=== PATIENT | male | born 1970 | race Caucasian/White ===

== ENCOUNTER 2025-05-27 19:31 | Inpatient (IN) | payer OTHER, SELFPAY ==
[2025-05-27] VITALS (11 sets, daily range): BP systolic 159–166; BP diastolic 88–94; PULSE 88–119; RESP 15–28; TEMP 36.8–37.5; O2SAT 94–99; BMI 22.4
--- NOTE | 2025-05-27 20:06 | ED.ABDPAIN ---
HPI - Abdominal Pain General Time Seen by Provider: 20:06 Date Seen: 05/27/25 Chief Complaint: Abdominal Pain Stated Complaint: pancreatitis Time Seen by Provider: 05/27/25 20:06 Source: patient Mode of arrival: ambulatory History of Present Illness HPI narrative: Brett is a 54-year-old male with a past medical history pancreatitis, alcohol use who presents the emergency department from home with his for evaluation of abdominal pain. Patient complains sudden onset of severe abdominal pain, nausea, vomiting Sunday afternoon. Patient states that he typically drinks 4-6 beers daily, states that he has been trying to cut back however on Sunday he did drink approximately 4 cans of beers. Patient reports that around 1600 he developed sudden onset of multiple episodes of nausea, vomiting, followed by severe abdominal pain. Patient describes the pain as a sharp stabbing pain in his epigastric region with radiation to his right abdomen and to his back. Patient reports history of similar pain with prior episodes of pancreatitis. Patient states that he has been to [facility] and hospitalized for this before. Patient reports that, he last had an episode of vomiting around 1:00 a.m.. Patient states today he was able to drink water, liquid IV, and was feeling a little better until this afternoon he had worsening pain. Patient denies any fever, chills, chest pain, cough, shortness of breath, diarrhea, constipation, dysuria, hematuria. Patient reports history of hernia surgeries in the past, exploratory laparotomy, cholecystectomy. No medications prior to arrival. + tobacco use. Patient reports last drink was on Sunday. No history of alcohol withdrawals. Related Data Home Medications ?Medication ?Instructions ?Recorded ?Confirmed aspirin 325 mg capsule 325 mg PO DAILY 05/27/25 05/27/25 atorvastatin 20 mg tablet 20 mg PO DAILY 05/27/25 05/27/25 losartan 25 mg tablet 25 mg PO DAILY 05/27/25 05/27/25 metoprolol tartrate 50 mg tablet 50 mg PO DAILY 05/27/25 05/27/25 omeprazole 40 mg capsule,delayed 40 mg PO DAILY 05/27/25 05/27/25 release Allergies Allergy/AdvReac Type Severity Reaction Status Date / Time meperidine (From Demerol) Allergy Severe Seizure Verified 05/27/25 20:52 Review of Systems Narrative Past medical history, past surgical history, medications, allergies, family history, and social history were reviewed with the patient. No additional pertinent items. A medically appropriate review of systems was performed with pertinent positives and negatives noted in HPI, all other systems negative. [facility] Social History Smoking Status: Unknown if ever smoked How often do you have a drink containing alcohol: 4 or more times a week How many standard drinks containing alcohol do you have on a typical day: 5 or 6 How often do you have six or more drinks on one occasion: Daily or almost daily AUDIT-C Alcohol total score: 10 Non-prescribed substance use: denies use Exam Narrative: Exam Narrative: General: Afebrile, no acute distress HEENT: Normocephalic, atraumatic, conjunctiva normal. MMM Neck: non-tender, supple Cardio: regular rate. regular rhythm Resp: Normal work of breathing, no respiratory distress, lungs clear bilaterally, no wheezing, rhonchi, rales Chest/Back: no visual signs of trauma, no midline tenderness, no CVA tenderness Abdomen: soft, non distension, no tenderness, no peritoneal signs Neuro: alert and fully oriented. CN II-XII grossly intact. Grossly normal strength and sensation in all extremities. MSK: no deformities. Normal range of motion Integumentary/Skin: no rash visualized, normal color Psych: normal affect, normal behavior Const: Vital Signs, click to edit/add: Vital Signs - 24 hr 05/27/25 19:47 05/27/25 20:10 05/27/25 20:15 Temperature 99.5 F Pulse Rate 108 H Pulse Rate [Pulse Oximeter] 119 H Respiratory Rate 28 H Blood Pressure 162/88 H Blood Pressure [Ri ght Upper Arm] 159/90 H Pulse Oximetry 99 97 98 Oxygen Delivery Me thod Room Air 05/27/25 20:30 05/27/25 20:55 05/27/25 20:59 Temperature Pulse Rate 108 H 99 105 H Pulse Rate [Pulse Oximeter] Respiratory Rate 24 17 Blood Pressure 166/92 H Blood Pressure [Ri ght Upper Arm] Pulse Oximetry 98 94 97 Oxygen Delivery Me thod 05/27/25 21:00 Temperature Pulse Rate 100 Pulse Rate [Pulse Oximeter] Respiratory Rate 18 Blood Pressure Blood Pressure [Ri ght Upper Arm] Pulse Oximetry 96 Oxygen Delivery Me thod Course Vital Signs Vital signs: Initial Vital Signs Temperature 99.5 F 05/27/25 19:47 Temperature Source Temporal Artery Scan 05/27/25 19:47 Pulse Rate 119 H 05/27/25 19:47 Respiratory Rate 28 H 05/27/25 19:47 Blood Pressure 159/90 H 05/27/25 19:47 Blood Pressure Mean 113 H 05/27/25 19:47 Blood Pressure Position Sitting 05/27/25 19:47 Pulse Oximetry 99 05/27/25 19:47 Oxygen Delivery Method Room Air 05/27/25 19:47 Vital Signs Temperature 99.5 F 05/27/25 19:47 Pulse Rate 119 H 05/27/25 19:47 Respiratory Rate 28 H 05/27/25 19:47 Blood Pressure 159/90 H 05/27/25 19:47 Pulse Oximetry 99 05/27/25 19:47 Oxygen Delivery Method Room Air 05/27/25 19:47 Temperature 99.5 F 05/27/25 19:47 Pulse Rate 100 05/27/25 21:00 Respiratory Rate 18 05/27/25 21:00 Blood Pressure 166/92 H 05/27/25 20:59 Pulse Oximetry 96 05/27/25 21:00 Oxygen Delivery Method Room Air 05/27/25 19:47 Medications Administered Medications: Generic Name Dose Route Start Last Admin Trade Name Freq PRN Reason Stop Dose Admin Sodium Chloride 1,000 mls @ 1,000 mls/hr 05/27/25 20:30 05/27/25 20:26 0.9 % Sodium Chloride 1000 Ml IV 05/27/25 21:29 1,000 mls/hr .Q1H JUAN JOSÉ Administration Discontinued Medications Generic Name Dose Route Start Last Admin Trade Name Freq PRN Reason Stop Dose Admin Hydromorphone HCl 1 mg 05/27/25 20:19 05/27/25 20:26 Hydromorphone 0.5 Mg/0.5 Ml Inj IVP 05/27/25 20:20 1 mg ONCE ONE Administration Ondansetron HCl 4 mg 05/27/25 20:19 05/27/25 20:25 Ondansetron 2 Mg/Ml Inj IVP 05/27/25 20:20 4 mg ONCE ONE Administration MDM - Abdominal Pain MDM Narrative Medical decision making narrative: Brett is a 54-year-old male with a past medical history pancreatitis, alcohol use who presents the emergency department from home with his for evaluation of abdominal pain. Upon arrival patient is ill but nontoxic appearing, afebrile, in distress secondary to pain. Initial vital signs with hypertensive 159/90, tachycardic with a heart rate of 119, tachypnea with respirations 28, oxygen 99% room air. Abdomen is soft, nondistended, tenderness to palpation in upper abdomen. Differential diagnosis includes but is not limited to pancreatitis versus retained stone versus gastritis versus peptic ulcer disease versus colitis versus appendicitis among others. Upon arrival patient was treated with 1 L IV fluid bolus, IV Zofran, IV Dilaudid for pain. Comprehensive labs remarkable for leukocytosis with white blood cell count 16.6, hemoglobin 15.4, sodium 133, potassium 3.7, no other metabolic electrolyte abnormality, no transaminitis, lipase elevated at 1833. I personally reviewed interpreted CT scan abdomen pelvis which demonstrates peripancreatic head inflammation suggested of acute uncomplicated pancreatitis. There are additional pancreatic head cystic lesions likely pseudocyst in this patient with history of pancreatitis. Mild gastric antral proximal duodenal wall thickening likely reactive. I discussed results with patient. Patient does report improvement/decrease in pain after IV pain medication. Given severe pain, nausea, vomiting, leukocytosis, elevated lipase, history of pancreatitis in the past, plan on admission for acute pancreatitis for IV hydration, bowel rest, pain control. Patient understands and agrees the plan. I discussed patient management with hospitalist who agrees with admission. Medical Records Attestation: I reviewed the patient's medical records. Lab Data Attestation: I reviewed the patient's lab results. Labs: Lab Results 05/27/25 05/27/25 05/27/25 Range/Units 20:00 20:00 20:00 WBC 16.60 H (4.50-11.00) K/uL RBC 4.69 (4.30-5.90) m/uL Hgb 15.4 (13.5-17.5) gm/dL Hct 44.8 (37.0-53.0) % MCV 96 (80-100) fL MCH 33 (26-34) pg MCHC 34 (32-36) gm/dL RDW Coeff of Tereso 11.8 (11.5-15.5) % Plt Count 360 (140-440) K/uL Neut % (Auto) 76.3 H (42.0-72.0) % Lymph % (Auto) 16.2 L (20-44) % [place] % (Auto) 6.7 (0.0-11.0) % Eos % (Auto) 0.4 (0.0-7.0) % Baso % (Auto) 0.1 (0.0-3.0) % Neut # (Auto) 12.70 H (1.7-7.0) K/uL Lymph # (Auto) 2.70 (0.90-2.90) K/uL [place] # (Auto) 1.10 H (0.00-0.90) K/UL Eos # (Auto) 0.10 (0.00-0.50) K/uL Baso # (Auto) 0.00 (0.00-0.30) K/uL Abs Immat Gran (auto) 0.00 (0.00-0.30) K/uL Imm/Tot Granulo (auto) 0.3 % Sodium Cancelled 133 L Potassium Cancelled 3.7 Chloride Cancelled Carbon Dioxide Anion Gap BUN Creatinine Estimated Creat Clear Estimated GFR Glucose Lactate (0.5-1.9) mmol/L Calcium Total Bilirubin (0.1-1.5) mg/dL Direct Bilirubin (0.0-0.5) mg/dL AST (12-35) U/L ALT (4-50) U/L Alkaline Phosphatase (40-150) U/L Total Protein (6.0-8.3) g/dL Albumin (3.3-5.0) g/dL Lipase (23-300) U/L Ethyl Alcohol (0.01-0.03) % 05/27/25 05/27/25 05/27/25 Range/Units 20:00 20:00 20:00 WBC (4.50-11.00) K/uL RBC (4.30-5.90) m/uL Hgb (13.5-17.5) gm/dL Hct (37.0-53.0) % MCV (80-100) fL MCH (26-34) pg MCHC (32-36) gm/dL RDW Coeff of Tereso (11.5-15.5) % Plt Count (140-440) K/uL Neut % (Auto) (42.0-72.0) % Lymph % (Auto) (20-44) % [place] % (Auto) (0.0-11.0) % Eos % (Auto) (0.0-7.0) % Baso % (Auto) (0.0-3.0) % Neut # (Auto) (1.7-7.0) K/uL Lymph # (Auto) (0.90-2.90) K/uL [place] # (Auto) (0.00-0.90) K/UL Eos # (Auto) (0.00-0.50) K/uL Baso # (Auto) (0.00-0.30) K/uL Abs Immat Gran (auto) (0.00-0.30) K/uL Imm/Tot Granulo (auto) % Sodium Potassium Chloride 102 Carbon Dioxide Cancelled 24 Anion Gap Cancelled 7 BUN Cancelled Creatinine Estimated Creat Clear Estimated GFR Glucose Lactate (0.5-1.9) mmol/L Calcium Total Bilirubin (0.1-1.5) mg/dL Direct Bilirubin (0.0-0.5) mg/dL AST (12-35) U/L ALT (4-50) U/L Alkaline Phosphatase (40-150) U/L Total Protein (6.0-8.3) g/dL Albumin (3.3-5.0) g/dL Lipase (23-300) U/L Ethyl Alcohol (0.01-0.03) % 05/27/25 05/27/25 05/27/25 Range/Units 20:00 20:00 20:00 WBC (4.50-11.00) K/uL RBC (4.30-5.90) m/uL Hgb (13.5-17.5) gm/dL Hct (37.0-53.0) % MCV (80-100) fL MCH (26-34) pg MCHC (32-36) gm/dL RDW Coeff of Tereso (11.5-15.5) % Plt Count (140-440) K/uL Neut % (Auto) (42.0-72.0) % Lymph % (Auto) (20-44) % [place] % (Auto) (0.0-11.0) % Eos % (Auto) (0.0-7.0) % Baso % (Auto) (0.0-3.0) % Neut # (Auto) (1.7-7.0) K/uL Lymph # (Auto) (0.90-2.90) K/uL [place] # (Auto) (0.00-0.90) K/UL Eos # (Auto) (0.00-0.50) K/uL Baso # (Auto) (0.00-0.30) K/uL Abs Immat Gran (auto) (0.00-0.30) K/uL Imm/Tot Granulo (auto) % Sodium Potassium Chloride Carbon Dioxide Anion Gap BUN 9 Creatinine Cancelled 0.7 Estimated Creat Clear Cancelled 122.30 Estimated GFR Cancelled Glucose Lactate (0.5-1.9) mmol/L Calcium Total Bilirubin (0.1-1.5) mg/dL Direct Bilirubin (0.0-0.5) mg/dL AST (12-35) U/L ALT (4-50) U/L Alkaline Phosphatase (40-150) U/L Total Protein (6.0-8.3) g/dL Albumin (3.3-5.0) g/dL Lipase (23-300) U/L Ethyl Alcohol (0.01-0.03) % 05/27/25 05/27/25 05/27/25 Range/Units 20:00 20:00 20:00 WBC (4.50-11.00) K/uL RBC (4.30-5.90) m/uL Hgb (13.5-17.5) gm/dL Hct (37.0-53.0) % MCV (80-100) fL MCH (26-34) pg MCHC (32-36) gm/dL RDW Coeff of Tereso (11.5-15.5) % Plt Count (140-440) K/uL Neut % (Auto) (42.0-72.0) % Lymph % (Auto) (20-44) % [place] % (Auto) (0.0-11.0) % Eos % (Auto) (0.0-7.0) % Baso % (Auto) (0.0-3.0) % Neut # (Auto) (1.7-7.0) K/uL Lymph # (Auto) (0.90-2.90) K/uL [place] # (Auto) (0.00-0.90) K/UL Eos # (Auto) (0.00-0.50) K/uL Baso # (Auto) (0.00-0.30) K/uL Abs Immat Gran (auto) (0.00-0.30) K/uL Imm/Tot Granulo (auto) % Sodium Potassium Chloride Carbon Dioxide Anion Gap BUN Creatinine Estimated Creat Clear Estimated GFR 110 Glucose Cancelled 187 H Lactate 1.5 (0.5-1.9) mmol/L Calcium Cancelled 9.3 Total Bilirubin 0.7 (0.1-1.5) mg/dL Direct Bilirubin 0.3 (0.0-0.5) mg/dL AST 33 (12-35) U/L ALT 29 (4-50) U/L Alkaline Phosphatase 85 (40-150) U/L Total Protein 6.9 (6.0-8.3) g/dL Albumin 3.9 (3.3-5.0) g/dL Lipase 1833 H (23-300) U/L Ethyl Alcohol < 0.01 (0.01-0.03) % Imaging Data CT scan - abdomen: Radiologist's impression: CT abdomen and pelvis acquired with 77 cc Isovue 370 IV contrast. COMPARISON: None. FINDINGS: Lower chest: Unremarkable. Liver: Unremarkable. Normal in size and attenuation. No suspicious masses. Gallbladder and bile ducts: Prior cholecystectomy. Pancreas: Multifocal pancreatic head cystic lesions, measuring 2.6 centimeters and 1.6 centimeters. Subtle peripancreatic head inflammation. Spleen: Unremarkable. Normal in size. No masses. Adrenal glands: Unremarkable. No nodules. Kidneys: Tiny nonobstructing right renal stone.. No suspicious masses, stones, or hydronephrosis. GI tract: Mild gastric antral/proximal duodenal wall thickening.. Normal in caliber. No sign of mass or inflammation. Normal appendix. Vasculature: Aortoiliac arterial calcifications. Abdominal aorta is normal in caliber. Mesenteric arteries are patent. Lymph nodes: No lymphadenopathy. Peritoneum/Abdominal Wall: Unremarkable. No sign of mass or infiltration. No free air or significant free fluid. Pelvis: Unremarkable. Bones: Age-indeterminate moderate L1 compression fracture. IMPRESSION: Subtle peripancreatic head inflammation, possibly mild acute uncomplicated pancreatitis in the appropriate clinical setting. Recommend correlation with lipase. Additional 2.6 centimeter and 1.6 centimeter pancreatic head cystic lesions, likely pseudocysts in this patient with history of pancreatitis. Mild gastric antral/proximal duodenal wall thickening, likely reactive. Primary gastritis/duodenitis could have a similar appearance and should be clinically excluded. No drainable fluid collections or free intraperitoneal air. Age-indeterminate moderate L1 compression fracture. Recommend correlation with point tenderness. Please note that all CT scans at this facility use dose modulation, iterative reconstruction, and/or weight-based dosing when appropriate to reduce radiation dose to as low as reasonably achievable. Dictated by Shahram Bermeo MD @ 05/27/2025 9:10:43 PM Discharge Plan Discharge Clinical Impression: Pancreatitis, Abdominal pain, epigastric, Nausea & vomiting Patient Disposition: Admitted As Inpatient Condition: Improved
[2025-05-27 20:07] LABS: Lactate* 1.5 mmol/L (0.5-1.9)
[2025-05-27 20:11] LABS: Hematocrit* 44.8 % (37.0-53.0); Hemoglobin* 15.4 gm/dL (13.5-17.5); Immature Granulocytes Pct Auto 0.3 %; Mean Corpuscular HGB Conc 34 gm/dL (32-36); Mean Corpuscular Hemoglobin 33 pg (26-34); Mean Corpuscular Volume 96 fL (80-100); RDW Coefficient of Variation % 11.8 % (11.5-15.5); Red Blood Count* 4.69 m/uL (4.30-5.90); White Blood Count* 16.60 K/uL (4.50-11.00)
[2025-05-27 20:23] LABS: Immature Granulocytes Abs Auto 0.00 K/uL (0.00-0.30); Lymphocytes Absolute Auto 2.70 K/uL (0.90-2.90); Slide Review Reflex No
[2025-05-27] MEDS: ONDANSETRON 2 MG/ML inj 4 MG IVP (20:25)
[2025-05-27 20:26] LABS: Chloride* 102 mmol/L (96-114); Potassium* 3.7 mmol/L (3.6-5.1); Sodium* 133 mmol/L (135-149)
[2025-05-27 20:27] LABS: Albumin* 3.9 g/dL (3.3-5.0)
--- NOTE | 2025-05-27 20:27 | CRLHL7_ITS ---
For Patients: As a result of the Century Cures Act, medical imaging exams and procedure reports are released immediately into your electronic medical record. You may view this report before your referring provider. If you have questions, please contact your health care provider. INDICATION: Upper abdominal pain. TECHNIQUE: CT abdomen and pelvis acquired with 77 cc Isovue 370 IV contrast. COMPARISON: None. FINDINGS: Lower chest: Unremarkable. Liver: Unremarkable. Normal in size and attenuation. No suspicious masses. Gallbladder and bile ducts: Prior cholecystectomy. Pancreas: Multifocal pancreatic head cystic lesions, measuring 2.6 centimeters and 1.6 centimeters. Subtle peripancreatic head inflammation. Spleen: Unremarkable. Normal in size. No masses. Adrenal glands: Unremarkable. No nodules. Kidneys: Tiny nonobstructing right renal stone.. No suspicious masses, stones, or hydronephrosis. GI tract: Mild gastric antral/proximal duodenal wall thickening.. Normal in caliber. No sign of mass or inflammation. Normal appendix. Vasculature: Aortoiliac arterial calcifications. Abdominal aorta is normal in caliber. Mesenteric arteries are patent. Lymph nodes: No lymphadenopathy. Peritoneum/Abdominal Wall: Unremarkable. No sign of mass or infiltration. No free air or significant free fluid. Pelvis: Unremarkable. Bones: Age-indeterminate moderate L1 compression fracture. IMPRESSION: Subtle peripancreatic head inflammation, possibly mild acute uncomplicated pancreatitis in the appropriate clinical setting. Recommend correlation with lipase. Additional 2.6 centimeter and 1.6 centimeter pancreatic head cystic lesions, likely pseudocysts in this patient with history of pancreatitis. Mild gastric antral/proximal duodenal wall thickening, likely reactive. Primary gastritis/duodenitis could have a similar appearance and should be clinically excluded. No drainable fluid collections or free intraperitoneal air. Age-indeterminate moderate L1 compression fracture. Recommend correlation with point tenderness. Please note that all CT scans at this facility use dose modulation, iterative reconstruction, and/or weight-based dosing when appropriate to reduce radiation dose to as low as reasonably achievable. Dictated by Shahram Bermeo MD @ 05/27/2025 9:10:43 PM (Electronically Signed)
[2025-05-27 20:29] LABS: Alanine Aminotransferase* 29 U/L (4-50); Anion Gap 7 mEq/L (7-15); Aspartate Amino Transferase* 33 U/L (12-35); Blood Urea Nitrogen* 9 mg/dL (7-30); Calcium* 9.3 mg/dL (8.4-10.6); Carbon Dioxide* 24 mmol/L (20-32); Creatinine* 0.7 mg/dL (0.5-1.5); Est. Creatinine Clearance* 122.30; Estimated Glomerular Filt Rate 110 ml/min; Glucose* 187 mg/dL (60-115); Total Protein* 6.9 g/dL (6.0-8.3)
[2025-05-27 20:30] LABS: Alkaline Phosphatase* 85 U/L (40-150); Bilirubin Direct* 0.3 mg/dL (0.0-0.5); Bilirubin Total* 0.7 mg/dL (0.1-1.5)
[2025-05-27 20:31] LABS: Ethanol* < 0.01 % (0.01-0.03)
--- NOTE | 2025-05-27 21:25 | PM.IMHP1 ---
Assessment and Plan Assessment and plan (1) Alcoholic pancreatitis: Problem comment: -acute on chronic recurrent, 3rd episode -CT shows Subtle peripancreatic head inflammation, possibly mild acute uncomplicated pancreatitis -lipase 1833 -IVF, NPO, pain and nausea management -consider General surgery consult if new or worsening symptoms or no resolve Status: Acute (2) Gastritis: Problem comment: -history of gastric ulcer, Turner's esophagus without dysplasia -CT shows Mild gastric antral/proximal duodenal wall thickening, likely reactive. Primary gastritis/duodenitis could have a similar appearance -H pylori ordered -continue PPI Status: Acute (3) Pancreatic cyst: Problem comment: -history of per EMR -CT shows 2.6 centimeter and 1.6 centimeter pancreatic head cystic lesions, likely pseudocysts in this patient with history of pancreatitis Status: Acute (4) Hypertension: Problem comment: -continue amlodipine, losartan, metoprolol Status: Acute (5) Hyperlipidemia: Problem comment: -continue statin Status: Acute (6) Tobacco use: Problem comment: -chronic Status: Acute Total Time Spent Total Time Spent: Today I spent 75 minutes seeing the patient, reviewing [facility]panse and EPIC notes/diagnostics, discussing the care plan with our care time that includes social work, PT/OT, pharmacy, RT, senior living and documenting my impressions and plan in the medical record. Hospitalist- H&P: HPI History of Present Illness Date Seen: 05/27/25 Chief complaint: pancreatitis Narrative: Brett Smalls is a 54 year old male past medical history significant for hypertension, hyperglycemia, WPW s/p ablation 2012, Turner's esophagus, alcohol-induced pancreatitis, pancreatic cyst, gastric ulcer, migraine, tobacco use is admitted to the medical floor from the ED with acute recurrent alcoholic pancreatitis. Patient is seen with at bedside. Came to this ED after recent experience of having to wait 9 hours in the [facility] ED. Complaining of sudden onset severe abdominal pain with nausea and vomiting since Sunday afternoon. Pain is sharp and stabbing in nature in the epigastric region, radiating to the right abdomen and into his back. Similar pains with previous episodes of pancreatitis. Last episode of vomiting was around 1:30 a.m. today. Has been able to take in small amounts of water and electrolytes today. Pain worsened again this afternoon. Has not had any fevers. Denies chest pain or shortness of breath. No change in bowels. No UTI symptoms. PCP is Gloria Malave. Drinks 4-6 beers daily, has been cutting back, previously drinking 8+ daily. Active smoker, ramy sweets. Review of Systems Narrative: REVIEW OF SYSTEMS: Complete review of systems performed and negative unless otherwise stated in HPI or below. Medical Decision Making Medical Decision Making Code Status: Full code [facility] Medical History (Updated 05/27/25 @ 22:54 by Gracy Reyes PA-C) Pancreatic cyst ?K86.2 - Cyst of pancreas (ICD-10) Hyperlipidemia ?E78.5 - Hyperlipidemia, unspecified (ICD-10) Tobacco use ?Z72.0 - Tobacco use (ICD-10) Migraine ?G43.909 - Migraine, unspecified, not intractable, without status migrainosus (ICD-10) History of gastric ulcer ?Z87.11 - Personal history of peptic ulcer disease (ICD-10) Alcoholic pancreatitis ?K85.20 - Alcohol induced acute pancreatitis without necrosis or infection (ICD-10) Turner's esophagus without dysplasia ?K22.70 - Turner's esophagus without dysplasia (ICD-10) Hypertension ?I10 - Essential (primary) hypertension (ICD-10) WPW (Ulrbi-Objrotmfc-Pkraq syndrome) ?I45.6 - Pre-excitation syndrome (ICD-10) Social History Smoking Status: Unknown if ever smoked How often do you have a drink containing alcohol: 4 or more times a week How many standard drinks containing alcohol do you have on a typical day: 5 or 6 How often do you have six or more drinks on one occasion: Daily or almost daily AUDIT-C Alcohol total score: 10 Non-prescribed substance use: denies use Meds Home Medications and Allergies Home Medications ?Medication ?Instructions ?Recorded ?Confirmed ?Type aspirin 325 mg capsule 325 mg PO DAILY 05/27/25 05/27/25 History atorvastatin 20 mg tablet 20 mg PO DAILY 05/27/25 05/27/25 History losartan 25 mg tablet 25 mg PO DAILY 05/27/25 05/27/25 History metoprolol tartrate 50 mg tablet 50 mg PO DAILY 05/27/25 05/27/25 History omeprazole 40 mg capsule,delayed 40 mg PO DAILY 05/27/25 05/27/25 History release Allergies Allergy/AdvReac Type Severity Reaction Status Date / Time meperidine (From Demerol) Allergy Severe Seizure Verified 05/27/25 20:52 Exam Narrative: Exam Narrative: PHYSICAL EXAM General: Pleasant, conversant, NAD HEENT: Normocephalic, atraumatic, sclera white, EOMI, oral mucosa moist Cardiovascular: RRR, S1S2. No pitting edema Pulmonary: CTA bilaterally without rhonchi, rales, expiratory wheezes. No dyspnea Abdominal: Soft, palpable tenderness upper abdomen, greater midepigastric region, no guarding Neurological: Alert, answering questions appropriately, cranial nerves intact, no focal findings Extremities: No gross joint deformity or swelling. AROMI. Neurovascularly intact Skin: Warm, dry. Const: Vital Signs, click to edit/add: Vital Signs - 24 hr 05/27/25 19:47 05/27/25 20:10 05/27/25 20:15 Temperature 99.5 F Pulse Rate 108 H Pulse Rate [Pulse Oximeter] 119 H Respiratory Rate 28 H Blood Pressure 162/88 H Blood Pressure [Ri ght Upper Arm] 159/90 H Pulse Oximetry 99 97 98 [facility] 05/27/25 20:30 05/27/25 20:55 05/27/25 20:59 Temperature Pulse Rate 108 H 99 105 H Pulse Rate [Pulse Oximeter] Respiratory Rate 24 17 Blood Pressure 166/92 H Blood Pressure [Ri ght Upper Arm] Pulse Oximetry 98 94 97 Oxygen Delivery Ne thod 05/27/25 21:00 Temperature Pulse Rate 100 Pulse Rate [Pulse Oximeter] Respiratory Rate 18 Blood Pressure Blood Pressure [Ri ght Upper Arm] Pulse Oximetry 96 [facility] - H&P: Result Labs Labs: Short CBC 05/27/25 Range/Units 20:00 WBC 16.60 H (4.50-11.00) K/uL Hgb 15.4 (13.5-17.5) gm/dL Hct 44.8 (37.0-53.0) % Plt Count 360 (140-440) K/uL BMP 05/27/25 05/27/25 05/27/25 20:00 20:00 20:00 Sodium Cancelled 133 L Potassium Cancelled 3.7 Chloride Cancelled Carbon Dioxide BUN Creatinine Glucose Calcium 05/27/25 05/27/25 05/27/25 20:00 20:00 20:00 Sodium Potassium Chloride 102 Carbon Dioxide Cancelled 24 BUN Cancelled 9 Creatinine Cancelled Glucose Calcium 05/27/25 05/27/25 05/27/25 20:00 20:00 20:00 Sodium Potassium Chloride Carbon Dioxide BUN Creatinine 0.7 Glucose Cancelled 187 H Calcium Cancelled 9.3 Liver Function 05/27/25 Range/Units 20:00 Total Bilirubin 0.7 (0.1-1.5) mg/dL Direct Bilirubin 0.3 (0.0-0.5) mg/dL AST 33 (12-35) U/L ALT 29 (4-50) U/L Alkaline Phosphatase 85 (40-150) U/L Albumin 3.9 (3.3-5.0) g/dL Imaging CT scan - abdomen: Attestation: I have reviewed the pertinent imaging results. Radiologist's impression: Lower chest: Unremarkable. Liver: Unremarkable. Normal in size and attenuation. No suspicious masses. Gallbladder and bile ducts: Prior cholecystectomy. Pancreas: Multifocal pancreatic head cystic lesions, measuring 2.6 centimeters and 1.6 centimeters. Subtle peripancreatic head inflammation. Spleen: Unremarkable. Normal in size. No masses. Adrenal glands: Unremarkable. No nodules. Kidneys: Tiny nonobstructing right renal stone.. No suspicious masses, stones, or hydronephrosis. GI tract: Mild gastric antral/proximal duodenal wall thickening.. Normal in caliber. No sign of mass or inflammation. Normal appendix. Vasculature: Aortoiliac arterial calcifications. Abdominal aorta is normal in caliber. Mesenteric arteries are patent. Lymph nodes: No lymphadenopathy. Peritoneum/Abdominal Wall: Unremarkable. No sign of mass or infiltration. No free air or significant free fluid. Pelvis: Unremarkable. Bones: Age-indeterminate moderate L1 compression fracture. IMPRESSION: Subtle peripancreatic head inflammation, possibly mild acute uncomplicated pancreatitis in the appropriate clinical setting. Recommend correlation with lipase. Additional 2.6 centimeter and 1.6 centimeter pancreatic head cystic lesions, likely pseudocysts in this patient with history of pancreatitis. Mild gastric antral/proximal duodenal wall thickening, likely reactive. Primary gastritis/duodenitis could have a similar appearance and should be clinically excluded. No drainable fluid collections or free intraperitoneal air. Age-indeterminate moderate L1 compression fracture. Recommend correlation with point tenderness.
--- OUTSIDE RECORDS SUMMARY | 2025-05-27 21:27 | XMS_ITS | Clinical Summary ---
Author Organization [employer] [facility] Address [address] [place] [address] Care Team Providers Care Assembler Knife Name Role Phone Ida Aquino NP Primary Care Provider [phone] Allergies Active Allergy Reactions Criticality Noted Date Comments Clonidine Other - Describe In Comment Field 12/19/2024 Causes bradycardia with AV block Meperidine Seizures High 03/20/2013 Tomato (Solanum Lycopersicum) Edema 02/04/2021 Medications omeprazole (PRILOSEC) 20 mg Delayed-Release capsuleIndicatio ns:Chronic GERD Take 1 capsule by mouth once daily before a meal. 90 capsule 2 7 Active cholecalciferol (Vitamin D3) 5,000 unit tab tablet Take 125 mcg by mouth. Active MAGNESIUM ORAL Take 1 Tablet by mouth once daily in the morning. Active amLODIPine (NORVASC) 10 mg tablet 5 Active aspirin enteric coated 325 mg tablet Take 325 mg by mouth. Active atorvastatin (LIPITOR) 40 mg tablet Take 40 mg by mouth once daily. 5 Active losartan (COZAAR) 100 mg tabletIndication s:Essential hypertension Take 1 Tablet (100 mg) by mouth once daily. 30 Tablet 5 06/12/20 25 Active metoprolol succinate (TOPROL XL) 50 mg sustained-releas e tabletIndication s:Essential hypertension Take 1 Tablet (50 mg) by mouth once daily. 30 Tablet 5 Active metoprolol succinate (TOPROL XL) 50 mg sustained-releas e tabletIndication s:Hypertension, unspecified type Take 1 Tablet (50 mg) by mouth once daily for 14 days. 14 Tablet 5 05/13/20 25 Discontinue d(Reorder (E-cancel not sent)) losartan (COZAAR) 50 mg tabletIndication s:Hypertension, unspecified type Take 1 Tablet (50 mg) by mouth once daily for 14 days. 14 Tablet 5 05/13/20 25 metoprolol succinate (TOPROL XL) 50 mg sustained-releas e tablet Take 1 Tablet (50 mg) by mouth once daily. 14 Tablet 5 05/13/20 25 Discontinue d(*Error/Or rayne entry error) Active Problems Problem Noted Date Diagnosed Date Pancreatic cyst 02/13/2025 Turner's esophagus without dysplasia 02/13/2025 Alcohol-induced pancreatitis 04/14/2024 Hemorrhoids, external 06/04/2020 Cigar smoker 01/10/2019 Essential hypertension 01/10/2019 WPW (Vwacy-Wsnbnczsq-Boqsj syndrome), s/p ablati on in 201211/16/2017 Presbyopia 07/02/2017 Hypermetropia of left eye 07/02/2017 Hyperopic astigmatism of right eye 07/02/2017 Hyperglycemia 06/04/2017 History of gastric ulcer 06/04/2017 Overview (04/03/2019): On Omeprazole lifelong Overweight 06/04/2017 Migraine without status migrainosus, not intract able 02/05/2017 Vitamin D deficiency Vitamin B12 deficiency Resolved Problems Problem Noted Date Diagnosed Date Resolved Date Nonintractable migraine 02/05/2017 05/0 11/2018 Encounters Date Type Department Care Team Description 05/18/2025 Telephone [facility] [address] [facility] [address] [place] [address] Cardiology, Anw Appointment (EP TEAM) 05/13/2025 4:10 PM CDT Office [place] [facility] [address] [place] [address] Tammi Campos PA Blood Pressure 05/13/2025 Travel 04/30/2025 Orders Only [facility] [address] [place] [address] Tammi Campos PA 1 scan: (1-Ord) 04/29/2025 04/29/2025 10:55 AM CDT Office [place] [facility] [address] [place] [address] Tammi Campos PA Blood Pressure 04/29/2025 Travel 03/23/2025 12:00 PM CDT Office Visit [facility] [address] [place] [address] Clara Juarez MD Numbness 03/23/2025 Travel 03/20/2025 Orders Only [facility] [address] [place] [address] Lizzy Joiner PA <No scans attached> 03/19/2025 1:00 PM CDT Ancillary Procedure [facility] [address] [place] [address] 03/19/2025 Travel from Last 3 Months Immunizations Immunization Administration Dates Next Due Td (Age >=7 Years) 03/31/1997 Tdap 12/16/2015,03/31/1997 Family History Medical History Relation Name Comments Cancer-prostate Father Heart attack Father Stroke Father x2 Lung cancer Maternal Grandfather spread to brain Lymphoma Maternal Grandmother Cancer-ovarian Mother Bone cancer Paternal Grandfather Cancer-ovarian Paternal Grandmother Addiction problem Sister 2 of [place] bstance abuse Anesthesia Problem No Family History Blood Disease No Family History Clotting disorder No Family History Relation Name Status Comments Father (Age 70) [place] Maternal Grandfather Maternal Grandmother Mother Paternal Grandfather Paternal Grandmother Sister 1 Alive Sister 2 Social History Tobacco Use Types Packs/Day Years Used Date Smoking Tobacco: Every Day Cigars Started: 2000 Passive Smoke Exposure: Current Smokeless Tobacco: Never Tobacco Cessation:Ready to Q uit: Not Asked; Counseling Given: Not Answered Comments:pt smokes 6-8 cigars a day Alcohol Use Standard Drinks/Week Comments Not Currently 0 (1 standard drink = 0.6 oz pur e alcohol) PHQ-2 Answer Date Recorded PHQ-2 TOTAL SCORE 0 04/29/2025 Financial Resource Strain Answer Date R ecorded Difficulty of Paying Living Expenses Not on file 09/01/2021 Difficulty of Paying Living Expenses Not on file 09/01/2021 Sex and Gender Information Value Date Recorded Sex Assigned at Not on file Legal Sex Male 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 Gender Identity Not on file Sexual Orientation Not on file Occupation Industry Job Start Date Job End Date [employer] Not on file Not on file Not on file Obstetrics History Last Filed Vital Signs Vital Sign Reading Time Taken Comments Blood Pressure 138/82 05/13/2025 4:11 PM CDT Pulse 109 05/13/2025 4:11 PM CDT Temperature 36.9 C (98.5 F) 03/23/2025 11:55 AM CDT Respiratory Rate 15 06/01/2023 2:58 PM CDT Oxygen Saturation 98% 05/13/2025 4:11 PM CDT Inhaled Oxygen Concentration - - Weight 72.9 kg (160 lb 12.8 oz) 05/13/2025 4:11 PM CDT Height 173.8 cm (5' 8.43) 03/23/2025 1 1:55 AM CDT Body Mass Index 24.15 03/23/2025 11:55 AM CDT Plan of Treatment Upcoming Encounters Date Type Department Care Team (Late st Contact Info) Description 06/12/2025 3:50 PM CDT Office Visit [facility] [address] [place] [address] Ida Aquino MOBILE SALES ASSISTANT [address] [place] [address] 07/09/2025 3:00 PM CDT Office Visit [facility] [address] [place] [address] Shahram Larose MD [address] [place] [address] Health Maintenance Due Date Last Done Comments HIV for age 15-65 1986 Hepatitis C screening for ag e 18-79 1989 Hepatitis B series for 19+ ( 1 of 3 - 19+ 3-dose series) 1990 Pneumococcal series for age 50+ (1 of 2 - PCV) 1990 Colonoscopy through age 75 2016 Zoster (shingles) series for age 50+ (1 of 2) 2021 COVID-19 vaccine series (1 - 2023- season) 2025 Influenza Vaccine (#1) 2025 Tetanus booster 12/15/2025 12/16/2015, 03/11, 03/31/1997 BMI (ht and wt on same day) for age 18+ 03/23/2026 03/23/2025, 02/13/2025, 12/30/2024, Additional history exists Depression screening for age 12+ 04/29/2026 04/29/2025, 05/24/2020, 05/21/2020, Additional history exists Lipids for age 45-75 02/23/2028 02/22/2023, 01/10/2022, 12/22/2020, Additional history exists RSV vaccine for adults or (1 - 1-dose 75+ series) 2046 Procedures Procedure Name Priority Date/Time Associated Diagnosis Comments SCAN-OPERATIVE/PRO CEDURE REPORT 05/15/2025 3:00 PM CDT BASIC METABOLIC PANEL Routine 05/13/2025 4:45 PM CDT Essential hypertension EKG 12 LEAD Routine 04/29/2025 12:00 AM CDT Hypertension, unspecified type US ARTERIAL LOWER EXTREMITY W LATRICE BILATERAL Routine 03/19/2025 2:05 PM CDT PAD (peripheral artery disease) LIPID PANEL W REFLEX MEASURED LDL Routine 02/22/2023 1:43 PM CDT Essential hypertension from Last 3 Months or Most Recently Relevant to Health Maintenance Results * SCAN-OPERATIVE/PROCEDURE REPORT (05/15/2025 3:00 PM CDT) Narrative Procedure Note Randy Zhou MD - 05/15/2025 1:37 PM CDT [facility] [address] [place] [address], [address] [place] [address] Patient Name: Brett Lea Gender: Male Exam Date: 05/15/2025 Visit Number: [id number] Age: 54 Years 9 Months : 1970 Attending MD: Randy Zhou MD Procedure: Upper GI Endoscopy Indications: Turner's, high-grade dysplasia Provider: Randy Zhou MD Referring MD: Referral Self Primary MD: Ida Aquino CNP Medications: Admitting Medication: 0.9% Normal Saline at TKO Intra Procedure Medications: Patient received monitored anesthesia care. Complications: No immediate complications Procedure: An examination of the heart and lungs was performed within acceptablelimits. The patient was therefore deemed a reasonable candidate forendoscopy and monitored anesthesia care. The risks, benefits and plan were discussed to the patient and/or patientrepresentative and all questions answered. After obtaining informedconsent, the patient received monitored anesthesia care and I passed thescope. Throughout the procedure the patient's blood pressure, pulse and oxygensaturations were monitored. The scope was introduced through the mouthand advanced to the stomach. Findings: Esophagus: The z-line is 40 centimeters from the incisors. Top of the gastricfolds is 43 centimeters from the incisors. *Esophagus Comments: There was Turner's esophagus from 40 to 43 cmorganized in tongues C:0 M:3; these were ablated using the HALO 90 devicepower density of 40 W/cm , energy density of 12 J/cm . No biopsies weretaken. Stomach: The diaphragm hiatus is at 45 centimeters from the incisors. *Stomach Comments: Small HH; otherwise negative. Duodenum: Impression: Long-segment Turner's esophagus with high grade dysplasia; ablated Hiatal hernia Plan: Repeat EGD in 3 months with Abelardo Electronically Signed Randy Zhou MD 05/15/2025 3:00 PM Medications: Medication Dose Sig Description PRN Status PRN Reason Comments aspirin 325 mg tablet 325 mg take 1 tablet by oral route every day Ntaking as directed atorvastatin 40 mg tablet 40 mg take 1 tablet by oral route every day Ntaking as directed cilostazol 100 mg tablet 100 mg take 1 tablet by oral route every day 1/2hour before or 2 hours after breakfast and dinner N taking as directed Kapspargo Sprinkle UNKNOWN take 1 capsule by oral route every day Ntaking as directed losartan 100 mg tablet 100 mg take 1 tablet by oral route every day Ntaking as directed magnesium UNKNOWN take 1 tablet by oral route every day N taking asdirected omeprazole 40 mg capsule,delayed release 40 mg take 1 capsule by oralroute every day before a meal N taking as directed vitamin B12 500 mcg-folic acid 400 mcg tablet 500 mcg-400 mcg take 1 byoral route every day N taking as directed Vitamin D3 UNKNOWN take 1 tablet by oral route every day N taking asdirected Allergies: Medication Name Ingredient Reaction Comment Demerol MEPERIDINE HCL Seizure Demerol MEPERIDINE HCL Seizures Vital Signs: Date Time Systolic Diastolic Height Weight BMI 05/15/2025 2:18 PM 133 82 70 in 188.20 27.00 Smoking Status: Use Status Type Smoking Status Usage Per Day Years Used Total Pack Years yes Current every day smoker Race: White Preferred Language: Mauritian cc: Ida Aquino [facility] [phone] us Randy Zhou MD OTHER Final Result * (ABNORMAL) BASIC METABOLIC PANEL (05/13/2025 4:45 PM CDT) SODIUM 139 135 - 146 mmol/L 05/14/2025 6:18 AM CDT [facility] POTASSIUM 4.3 3.5 - 5.3 mmol/L 05/14/2025 6:18 AM CDT [facility] CARBON DIOXIDE 27 20 - 32 mmol/L 05/14/2025 6:18 AM CDT [facility] GLUCOSE 102(H) 65 - 99 mg/dL 05/14/2025 6:18 AM CDT [facility] Comment: Fasting reference interval For someone without known diabetes, a glucose value between 100 and 125 mg/dL is consistent with prediabetes and should be confirmed with a follow-up test. CALCIUM 9.3 8.6 - 10.3 mg/dL 05/14/2025 6:18 AM CDT [facility] CREATININE 0.85 0.70 - 1.30 mg/dL 05/14/2025 6:18 AM CDT [facility] BUN/CREATININE RATIO SEE NOTE: 6 - 22 (calc) 05/14/2025 6:18 AM CDT [facility] Comment: Not Reported: BUN and Creatinine are within reference range. EGFR 104 > OR = 60 mL/min/1. 73m2 05/14/2025 6:18 AM CDT [facility] UREA NITROGEN (BUN) 13 7 - 25 mg/dL 05/14/2025 6:18 AM CDT [facility] ELECTROLYTE BALANCE 7 7 - 17 mmol/L (calc) 05/14/2025 6:18 AM CDT [facility] CHLORIDE 105 98 - 110 mmol/L 05/14/2025 6:18 AM CDT [facility] Blood BLOOD SPECIMEN / Unknown Non-Lab Venipuncture / Unknown 05/13/2025 4:45 PM CDT 05/13/2025 4:45 PM CDT Tammi GORDON CHEMISTRY Final Res ult [facility] [address] [place] [address], [place] [phone] * EKG 12 LEAD (04/29/2025 12:00 AM CDT) us Tammi GORDON EKG ORD Final Res ult * US ARTERIAL LOWER EXTREMITY W LATRICE BILATERAL (03/19/2025 2:05 PM CDT) Anatomical Region Laterality Modality LEGS Ultrasound 03/19/2025 12:5 4 PM CDT Narrative 03/20/2025 3:02 PM CDT VASCULAR ULTRASOUND REPORT BRETT LEA : 1970 Study Date: 03/19/2025 12:54:36 PM Age: 54 years Tech: CHELY Gender: M Referring MD: LIZZY JOINER Site: [facility] Study performed: Lower extremity duplex US, resting LATRICE, TBI, (bilateral). Indication for study: Claudication TECHNIQUE: Lower/upper extremity arteries were examined per exam protocol by duplex ultrasound, color-flow and spectral Doppler. Peak systolic velocities (PSV), Doppler waveform quality, velocity ratios and vessel size in cm, were documented at protocol specific sites. Physiologic data including segmental pressures, ankle/brachial index (LATRICE), digit PPG recordings, laser Doppler flowmetry, transcutaneous oximetry, and digit temperatures were documented at sites per exam protocol and test requirements. IMPRESSION: 1. Resting ankle-brachial index is severely reduced on the right at 0.39 and is moderately reduced on the left at 0.58. 2. Toe-brachial index is severely reduced on the right at 0.20 and toe-brachial index is moderately to severely reduced on the left at 0.34. 3. Monophasic inflow into the common femoral artery bilaterally, consistent with proximal disease. No evidence of hemodynamically significant arterial stenosis seen in bilateral femoropopliteal arteries. COMPARISON: No prior study available for comparison. FINDINGS: No evidence of hemodynamically significant arterial stenosis seen in bilateral femoropopliteal arteries. Exercise portion not done as it is contraindicated when a resting LATRICE is below 0.50. Right toe/brachial index indicates severe range. Left toe/brachial index indicates moderate to severe range. +--------+ + + RIGHT Velocity cm/s Phasicity +--------+ + + ACCOUNT DEVELOPER PRX 47 monophasic +--------+ + + ACCOUNT DEVELOPER DST 42 monophasic +--------+ + + PFA 20 monophasic +--------+ + + SFA PRX 51 monophasic +--------+ + + SFA MID 54 monophasic +--------+ + + SFA DST 33 monophasic +--------+ + + JOCELIN PRX 21 monophasic +--------+ + + JOCELIN DST 24 monophasic +--------+ + + WATER SOFTENER SERVICER AND INSTALLER DST 17 monophasic +--------+ + + DPA 18 monophasic +--------+ + + +--------+ + + LEFT Velocity cm/s Phasicity +--------+ + + ACCOUNT DEVELOPER PRX 74 monophasic +--------+ + + ACCOUNT DEVELOPER DST 44 monophasic +--------+ + + PFA 48 monophasic +--------+ + + SFA PRX 43 monophasic +--------+ + + SFA MID 50 monophasic +--------+ + + SFA DST 35 monophasic +--------+ + + JOCELIN PRX 20 monophasic +--------+ + + JOCELIN DST 25 monophasic +--------+ + + WATER SOFTENER SERVICER AND INSTALLER DST 18 monophasic +--------+ + + DPA 17 monophasic +--------+ + + Criteria: Stenosis V. Ratio Mild <50% <2.0 Moderate 50-74% > or = 2.0 Severe 75-99% > or = 4.0 Occluded 100% no detectable flow Pressures +-----+ +--------+ +-----+ RIGHT (mmHg) LEFT (mmHg) +-----+ +--------+ +-----+ Index 158 Brachial 146 Index +-----+ +--------+ +-----+ 0.39 62 WATER SOFTENER SERVICER AND INSTALLER 92 0.58 +-----+ +--------+ +-----+ 0.38 60 DPA 80 0.51 +-----+ +--------+ +-----+ 0.20 31 Digit 1 53 0.34 +-----+ +--------+ +-----+ Pippa Osorio MD. Electronically signed on 03/20/2025 3:02:10 PM This study was performed and interpreted by a service accredited by the Intersocietal Accreditation Commission (IAC/Vascular), [email or web address]/vascular Report generated by [employer]. Final Procedure Note Pippa Osorio MD - 03/20/2025 VASCULAR ULTRASOUND REPORT BRETT LEA : 1970 Study Date: 03/19/2025 12:54:36 PM Age: 54 years Tech: CHELY Gender: M Referring MD: LIZZY JOINER Site: [facility] Study performed: Lower extremity duplex US, resting LATRICE, TBI,(bilateral). Indication for study: Claudication TECHNIQUE: Lower/upper extremity arteries were examined per exam protocol by duplexultrasound, color-flow and spectral Doppler. Peak systolic velocities(PSV), Doppler waveform quality, velocity ratios and vessel size in cm,were documented at protocol specific sites. Physiologic data includingsegmental pressures, ankle/brachial index (LATRICE), digit PPG recordings,laser Doppler flowmetry, transcutaneous oximetry, and digit temperatureswere documented at sites per exam protocol and test requirements. IMPRESSION: 1. Resting ankle-brachial index is severely reduced on the right at 0.39and is moderately reduced on the left at 0.58. 2. Toe-brachial index is severely reduced on the right at 0.20 andtoe-brachial index is moderately to severely reduced on the left at0.34. 3. Monophasic inflow into the common femoral artery bilaterally,consistent with proximal disease. No evidence of hemodynamicallysignificant arterial stenosis seen in bilateral femoropoplitealarteries. COMPARISON: No prior study available for comparison. FINDINGS: No evidence of hemodynamically significant arterial stenosis seen inbilateral femoropopliteal arteries. Exercise portion not done as it iscontraindicated when a resting LATRICE is below 0.50. Right toe/brachial index indicates severe range. Left toe/brachial index indicates moderate to severe range. +--------+ + + RIGHT Velocity cm/s Phasicity +--------+ + + ACCOUNT DEVELOPER PRX 47 monophasic +--------+ + + ACCOUNT DEVELOPER DST 42 monophasic +--------+ + + PFA 20 monophasic +--------+ + + SFA PRX 51 monophasic +--------+ + + SFA MID 54 monophasic +--------+ + + SFA DST 33 monophasic +--------+ + + JOCELIN PRX 21 monophasic +--------+ + + JOCELIN DST 24 monophasic +--------+ + + WATER SOFTENER SERVICER AND INSTALLER DST 17 monophasic +--------+ + + DPA 18 monophasic +--------+ + + +--------+ + + LEFT Velocity cm/s Phasicity +--------+ + + ACCOUNT DEVELOPER PRX 74 monophasic +--------+ + + ACCOUNT DEVELOPER DST 44 monophasic +--------+ + + PFA 48 monophasic +--------+ + + SFA PRX 43 monophasic +--------+ + + SFA MID 50 monophasic +--------+ + + SFA DST 35 monophasic +--------+ + + JOCELIN PRX 20 monophasic +--------+ + + JOCELIN DST 25 monophasic +--------+ + + WATER SOFTENER SERVICER AND INSTALLER DST 18 monophasic +--------+ + + DPA 17 monophasic +--------+ + + Criteria: Stenosis V. Ratio Mild <50% <2.0 Moderate 50-74% > or = 2.0 Severe 75-99% > or = 4.0 Occluded 100% no detectable flow Pressures +-----+ +--------+ +-----+ RIGHT (mmHg) LEFT (mmHg) +-----+ +--------+ +-----+ Index 158 Brachial 146 Index +-----+ +--------+ +-----+ 0.39 62 WATER SOFTENER SERVICER AND INSTALLER 92 0.58 +-----+ +--------+ +-----+ 0.38 60 DPA 80 0.51 +-----+ +--------+ +-----+ 0.20 31 Digit 1 53 0.34 +-----+ +--------+ +-----+ Pippa Osorio MD. Electronically signed on 03/20/2025 3:02:10 PM This study was performed and interpreted by a service accredited by theIntersocietal Accreditation Commission (IAC/Vascular),[email or web address] Report generated by [employer]. Final us Lizzy Randle US Final Resu lt * (ABNORMAL) LIPID PANEL W REFLEX MEASURED LDL (02/22/2023 1:43 PM CDT) CHOLESTEROL,TOTAL 148 100 - 199 mg/dL 02/23/2023 12:40 AM CDT [facility] Comment: Cholesterol, Total Reference Ranges Desirable <200 mg/dL Borderline 200-239 mg/dL High >=240 mg/dL TRIGLYCERIDES 172(H) <150 mg/dL 02/23/2023 12:40 AM CDT [facility] HDL CHOLESTEROL 62 >40 mg/dL 12:40 AM CDT [facility] NON-HDL CHOLESTEROL 86 <145 mg/dl 02/23/2023 12:40 AM CDT [facility] CHOL/HDL RATIO 2.39 <4.50 02/23/2023 12:40 AM CDT [facility] LDL CHOLESTEROL 52 <=130 mg/dL 02/23/2023 12:40 AM CDT [facility] VLDL CHOLESTEROL 34(H) <=30 mg/dL 02/23/2023 12:40 AM CDT [facility] PROVIDER ORDERED STATUS RANDOM 02/23/2023 12:40 AM CDT [facility] Blood BLOOD SPECIMEN / Unknown Venipuncture / Unknown 02/22/2023 1:43 PM CDT 02/22/2023 1:43 PM CDT us Zoey GORDON CHEMISTRY Final Result [facility] [address] [place] [address], from Last 3 Months or Most Recently Relevant to Health Maintenance Insurance [employer] CHOICE Advance Directives * Full Code (Latest Code Status on File) Date Activated Date Inactivated Comments 03/20/2013 12:28 PM 03/21/2013 1:34 AM Care Teams Assembler Knife Relationship Specialty [place] [address] [place] [address] PCP - General Nurse Practitioner 02/13/25
--- OUTSIDE RECORDS SUMMARY | 2025-05-27 21:27 | XMS_ITS | Clinical Summary ---
Author Organization [facility] Address [address] [place] [id number] Care Team Providers Care Bmet Name Role Phone Ida uBrr MD Unavailable [phone] Ida Aquino BILLIARD PARLOR MANAGER Primary Care Provider [phone] Alea Taveras MD Unavailable [phone] Allergies Active Allergy Reactions Criticality Noted Date Comments Clonidine Other (See Comments) 12/19/2024 Causes bradycardia with AV block Meperidine Other (See Comments) High 03/20/2013 seizures Tomato Nausea and Vomiting 06/04/2023 Medications Vitamin D3 (CHOLECALCIFEROL) 125 MCG (5000 UT) tablet Take 125 mcg by mouth every morning. Active MAGNESIUM PO Take 1 tablet by mouth every morning. Active metoprolol succinate ER (TOPROL XL) 50 MG 24 hr tabletIndications:E ssential hypertension Take 1 tablet (50 mg) by mouth daily. 30 tablet 12/23/19 25 Active Additional Information Patient not taking.Reported on 03/24/2025 amLODIPine (NORVASC) 10 MG tabletIndications:E ssential hypertension Take 1 tablet (10 mg) by mouth daily. 30 tablet 12/23/19 25 Active Additional Information Patient not taking.Reported on 12/29/2024 omeprazole (PRILOSEC) [address] capsule Take 20 mg by mouth daily. Active cyanocobalamin (VITAMIN B-12) 500 MCG tablet Take 1,000 mcg by mouth daily. Active atorvastatin (LIPITOR) 40 MG tabletIndications:I ntermittent claudication of both lower extremities due to atherosclerosis Take 1 tablet (40 mg) by mouth daily. 90 tablet 3 03/24/20 25 Active aspirin (ASA) 325 MG EC tablet Take 325 mg by mouth daily. Active cilostazol (PLETAL) 100 MG tabletIndications:I ntermittent claudication of both lower extremities due to atherosclerosis Take 1 tablet (100 mg) by mouth 2 times daily. 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 [place] [phone] Alea Taveras MD Follow Up 03/30/2025 9:13 AM CDT - 03/30/2025 5:16 PM CDT Hospital Encounter [facility] [address] [place] [phone] Non-Fv Credentialed Provider, Radiology Alea Taveras MD Intermittent claudication of both lower extremities due to atherosclerosis Discharge Disposition: Home or Self Care 03/30/2025 Orders Only [facility] [address] [place] [phone] Alea Taveras MD Intermittent claudication of both lower extremities due to atherosclerosis (Primary Dx) 03/30/2025 Orders Only [facility] [address] [place] [phone] Alea Taveras MD Intermittent claudication of both lower extremities due to atherosclerosis (Primary Dx) 03/24/2025 3:00 PM CDT Office Visit [facility] [place] [address] [place] [phone] Alea Taveras MD PAD (peripheral artery disease); Claudication in peripheral vascular disease 03/24/2025 Telephone [facility] [place] [address] [place] [phone] Alea Taveras MD Surgery Scheduling 03/24/2025 Orders Only [facility] [address] [place] [phone] Alea Taveras MD Intermittent claudication of both lower extremities due to atherosclerosis (Primary Dx) 03/24/2025 Orders Only [facility] [address] [place] [phone] Alea Taveras MD Intermittent claudication of both lower extremities due to atherosclerosis (Primary Dx) 03/24/2025 Telephone [facility] [place] [address] [place] [phone] Nurse, [facility] Referral 03/23/2025 1:32 PM CDT - 03/23/2025 6:27 PM CDT Emergency [facility] [address] [place] [address] Buzz Armijo MD PAD (peripheral artery disease); Claudication in peripheral vascular disease; Left hand paresthesia Discharge Disposition: Home or Self Care 03/23/2025 Travel from Last 3 Months Social History Tobacco Use Types Packs/Day Years Used Date Smoking Tobacco: Every Day Cigars Smokeless Tobacco: Never Tobacco Cessation:Ready to Q uit: No; Counseling Given: Yes Alcohol Use Standard Drinks/Week Comments Yes 0 (1 standard drink = 0.6 oz pur e alcohol) occ PHQ-2 Answer Date Recorded PHQ-2 Score 0 03/24/2025 Adolescent Education Answer Date Record ed Getting School Help Needed Not on file 06/02 Food Insecurity Answer Date Recorded Within the past 12 months, d id you worry that your food would run out before you got money to buy more? No 12/18/2024 Within the past 12 months, d id the food you bought just not last and you didn t have money to get more? No 12/18/2024 Housing Stability Answer Date Recorded Do you have housing? (Abdirashid whaley is defined as stable permanent housing and does not include staying outside in a car, in a tent, in an abandoned building, in an overnight fpc, or couch-surfing.) Yes 12/18/2024 Are you worried about losing your housing? No 12/18/2024 Financial Resource Strain Answer Date R ecorded Within the past 12 months, h ave you or your family members you live with been unable to get utilities (heat, electricity) when it was really needed? No 12/18/2024 Transportation Needs Answer Date Record ed Within the past 12 months, h as lack of transportation kept you from medical appointments, getting your medicines, non-medical meetings or appointments, work, or from getting things that you need? No 12/18/2024 Interpersonal Safety Answer Date Record ed Do you feel physically and e motionally safe where you currently live? Yes 03/30/2025 Within the past 12 months, h ave you been hit, slapped, kicked or otherwise physically hurt by someone? No 03/30/2025 Within the past 12 months, h ave you been humiliated or emotionally abused in other ways by your partner or ex-partner? No 03/30/2025 Sex and Gender Information Value Date Recorded Sex Assigned at Male 05/02/2023 9:31 AM CDT Legal Sex Male 6:03 PM CDT Gender Identity Male 05/02/2023 9:31 AM CDT Sexual Orientation Not on file Last Filed Vital Signs Vital Sign Reading Time Taken Comments Blood Pressure 139/82 03/30/2025 4:25 PM CDT Pulse 89 03/30/2025 4:25 PM CDT Temperature 36.8 C (98.3 F) 03/30/2025 9:00 AM CDT Respiratory Rate 16 03/30/2025 4:25 PM CDT Oxygen Saturation 100% 03/30/2025 4:25 PM CDT Inhaled Oxygen Concentration - - Weight 72.7 kg (160 lb 4.4 oz) 03/23/2025 1:17 P M CDT Height 175.3 cm (5' 9) 03/23/2025 1:17 PM CDT Body Mass Index 23.67 03/23/2025 1:17 PM CDT Plan of Treatment Health Maintenance Due Date Last Done Comments ADVANCE CARE PLANNING 1971 ANNUAL REVIEW OF HM ORDERS 1971 CT COLONOGRAPHY 1971 FIT 1971 FLEX SIG 1971 NICOTINE/TOBACCO CESSATION COUNSELING Q 1 YR 1971 sDNA (Cologuard) 1971 COLONOSCOPY 1981 COLORECTAL CANCER SCREENING 1981 HIV SCREENING 1986 HEPATITIS C SCREENING 1989 HEPATITIS B VACCINE (1 of 3 - 19+ 3-dose series) 1990 PNEUMOCOCCAL VACCINE 50+ YEARS (1 of 2 - PCV) 1990 LUNG CANCER SCREENING 2021 07/11/2019 ZOSTER VACCINE (1 of 2) 2021 YEARLY PREVENTIVE VISIT 12/22/2021 12/22/2020 COVID-19 VACCINE ( - season) 2025 INFLUENZA VACCINE (#1) 2025 DTAP/TDAP/TD VACCINE (5 - Td or Tdap) 12/15/2025 12/16/2015, 12/16/2015, 03/31/1997, Additional history exists BMP 03/23/2026 03/23/2025, 12/09, 12/18/2024, Additional history exists LIPID 03/23/2026 03/23/2025 DIABETES SCREENING 03/23/2028 03/23/2025, 0 12/19/2024, 12/18/2024, Additional history exists PHQ-2 (once per calendar year) Completed 03/24/2025 HPV VACCINE (No Doses Required) Completed MENINGITIS VACCINE Aged Out No longer eligible based on patient's age to complete this topic Medical Devices Implanted Type Area Lace Sewer Device Identifier Shelf Expiration Date Model / Serial / Lot Mesh Composite Parietene Ds [id number] - [id number] Implanted:Qty: 1 on 01/22/2025 by Ida Burr MD at Mesh N/A: Abdomen COVIDIEN 05/10/2027 [id number] / / [id number] Procedures Procedure Name Priority Date/Time Associated Diagnosis Comments IR LOWER EXTREMITY ANGIOGRAM BILATERAL Routine 03/30/2025 12:29 PM CDT Intermittent claudication of both lower extremities due to atherosclerosis MRA NECK (CAROTIDS) W/O & W CONTRAST STAT 03/23/2025 4:43 PM CDT MRA BRAIN ([place]) W/O CONTRAST STAT 03/23/2025 4:43 PM CDT MR BRAIN W/O & W CONTRAST STAT 03/23/2025 4:43 PM CDT CTA ABDOMEN PELVIS RUNOFF W CONTRAST STAT 03/23/2025 3:44 PM CDT ISTAT CREATININE POCT STAT 03/23/2025 2:57 PM CDT CBC WITH PLATELETS & DIFFERENTIAL STAT 03/23/2025 2:22 PM CDT LIPID REFLEX TO DIRECT LDL PANEL Add-On 03/23/2025 2:22 PM CDT EXTRA RED TOP TUBE STAT 03/23/2025 2: 22 PM CDT EXTRA BLUE TOP TUBE STAT 03/23/2025 2 :22 PM CDT CBC WITH PLATELETS AND DIFFERENTIAL STAT 03/23/2025 2:22 PM CDT PHOSPHORUS STAT 03/23/2025 2:22 PM CDT MAGNESIUM STAT 03/23/2025 2:22 PM CDT TROPONIN T, HIGH SENSITIVITY STAT 03/23/2025 2:22 PM CDT EXTRA TUBE STAT 03/23/2025 2:22 PM CDT BASIC METABOLIC PANEL STAT 03/23/2025 2:22 PM CDT EKG 12-LEAD, TRACING ONLY STAT 03/23/2025 1:26 PM CDT from Last 3 Months Results * IR Lower Extremity Angiogram Bilateral (03/30/2025 12:29 PM CDT) Anatomical Region Laterality Modality Lower Extremity Radio Fluoroscop y Narrative 04/25/2025 1:14 PM CDT Preprocedure diagnosis: 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 Postprocedure diagnosis: Same. Procedure: 1. Ultrasound-guided bilateral common femoral artery access placement. 2. Aortoiliac arteriogram. 3. Attempted recanalization of right common iliac artery occlusion (aborted due to lack of success). Surgeon: Alea Taveras M.D. Optometrist Owner: Jeanie Acharya M.D. Sedation: Patient received 4.5 mg of intravenous Versed. He received 225 mcg of intravenous fentanyl. Patient was continuously monitored. Medication was administered under my direct supervision. Medication was administered by registered nurse in the department of interventional radiology. Sedation time: 66 minutes. Fluoroscopy time: 26.4 minutes. Fluoroscopy dose: 227.04 mGy. Contrast: 45 mL of Isovue was used. Indication for procedure: This is a 54-year-old male who presented to us with short distance claudication of the right lower extremity. On CT angiogram he was found to have occlusion of the right common iliac artery. Patient is not interested in supervised exercise program because he is worried about his job and therefore has requested intervention. Procedure details: Patient was identified and then taken to the radiology suite and placed in supine position. Both groins were prepped. Preprocedure timeout was conducted. Both common femoral arteries were located individually anterior to their respective femoral heads by fluoroscopy. They were further localized with ultrasonography. Images were stored. Local anesthetic was administered in the right groin and the right common femoral artery was accessed with a micropuncture needle followed by placement of the microwire. This was then changed to 0.035 inch wire platform and a short 5 [place] sheath was placed. Similarly ultrasound was used to locate the left common femoral artery. Images were stored. Local anesthetic was administered. The left common femoral artery was accessed in retrograde fashion with a micropuncture needle followed by placement of a microwire. This was then converted to a 0.035 inch wire platform and a short 5 [place] sheath was placed. From the left side a 0.035 inch Glidewire and Omni Flush catheter were advanced into the aorta. Aortoiliac arteriogram was performed. Which showed that the distal aorta was patent. Left common iliac artery had high-grade stenosis but was patent. There were large lumbar collaterals. There was reconstitution of the right distal common iliac artery. Right common iliac artery from the distal aorta to its bifurcation was occluded. There was flow identified in the right hypogastric and the external iliac arteries. 8000 units of heparin were administered. From the right side we used a KMP catheter and made multiple times to enter the right common iliac artery. We were able to enter the right common iliac artery up to the level of the aorta but it did not reenter the aortic lumen. Multiple attempts were done and it appeared that the wire kept going into a dissection plane. Then we attempted the same with the Omni Flush catheter from the left side and we could not gain entry into the right common iliac artery. After multiple attempts I decided to abort the procedure. 50 mg of protamine were given. Wire and sheath were removed and manual pressure was applied. Patient was taken to the recovery room in stable condition. 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 Postprocedure diagnosis: Same. Procedure: 1. Ultrasound-guided bilateral common femoral artery access placement. 2. Aortoiliac arteriogram. 3. Attempted recanalization of right common iliac artery occlusion (aborted due to lack of success). Surgeon: Alea Taveras M.D. Optometrist Owner: Jeanie Acharya M.D. Sedation: Patient received 4.5 mg of intravenous Versed. He received 225 mcg of intravenous fentanyl. Patient was continuously monitored. Medication was administered under my direct supervision. Medication was administered by registered nurse in the department of interventional radiology. Sedation time: 66 minutes. Fluoroscopy time: 26.4 minutes. Fluoroscopy dose: 227.04 mGy. Contrast: 45 mL of Isovue was used. Indication for procedure: This is a 54-year-old male who presented to us with short distance claudication of the right lower extremity. On CT angiogram he was found to have occlusion of the right common iliac artery. Patient is not interested in supervised exercise program because he is worried about his job and therefore has requested intervention. Procedure details: Patient was identified and then taken to the radiology suite and placed in supine position. Both groins were prepped. Preprocedure timeout was conducted. Both common femoral arteries were located individually anterior to their respective femoral heads by fluoroscopy. They were further localized with ultrasonography. Images were stored. Local anesthetic was administered in the right groin and the right common femoral artery was accessed with a micropuncture needle followed by placement of the microwire. This was then changed to 0.035 inch wire platform and a short 5 [place] sheath was placed. Similarly ultrasound was used to locate the left common femoral artery. Images were stored. Local anesthetic was administered. The left common femoral artery was accessed in retrograde fashion with a micropuncture needle followed by placement of a microwire. This was then converted to a 0.035 inch wire platform and a short 5 [place] sheath was placed. From the left side a 0.035 inch Glidewire and Omni Flush catheter were advanced into the aorta. Aortoiliac arteriogram was performed. Which showed that the distal aorta was patent. Left common iliac artery had high-grade stenosis but was patent. There were large lumbar collaterals. There was reconstitution of the right distal common iliac artery. Right common iliac artery from the distal aorta to its bifurcation was occluded. There was flow identified in the right hypogastric and the external iliac arteries. 8000 units of heparin were administered. From the right side we used a KMP catheter and made multiple times to enter the right common iliac artery. We were able to enter the right common iliac artery up to the level of the aorta but it did not reenter the aortic lumen. Multiple attempts were done and it appeared that the wire kept going into a dissection plane. Then we attempted the same with the Omni Flush catheter from the left side and we could not gain entry into the right common iliac artery. After multiple attempts I decided to abort the procedure. 50 mg of protamine were given. Wire and sheath were removed and manual pressure was applied. Patient was taken to the recovery room in stable condition. ALEA TAVERAS MD us Alea Taveras MD IMG IR ORDERABLES Final Result * MR Brain w/o & w Contrast (03/23/2025 4:43 PM CDT) Anatomical Region Laterality Modality Head, SUBRAD MR NEURO, UMP MR NEURO, RAD MR Magnetic Resonance 03/23/2025 4:43 PM CDT Impressions 03/23/2025 5:03 PM CDT IMPRESSION: HEAD MRI: 1. No imaging evidence indicative of acute or subacute infarction. 2. Mild degree of cerebral parenchymal volume loss and presumed small vessel ischemic disease. HEAD MRA: 1. No aneurysm, high flow AVM or significant stenosis identified. NECK MRA: 1. No hemodynamically significant stenoses regarding the major arterial vasculature of the neck. Narrative 03/23/2025 5:03 PM CDT EXAM: MR BRAIN W/O and W CONTRAST, MRA NECK (CAROTIDS) W/O and W CONTRAST, MRA BRAIN ([facility] [place]OW) W/O CONTRAST LOCATION: [facility] DATE: 03/23/2025 INDICATION: 3 days left upper extremity numbness, clumsiness, known vasculopath COMPARISON: None. CONTRAST: 10 ml Gadavist TECHNIQUE: 1) Routine multiplanar multisequence head MRI without and with intravenous contrast. 2) 3D [id number]-eb-[id number] head MRA without intravenous contrast. 3) Neck MRA without and with IV contrast. Stenosis measurements made according to NASCET criteria unless otherwise specified. FINDINGS: HEAD MRI: INTRACRANIAL CONTENTS: No acute or subacute infarct. No mass, acute hemorrhage, or extra-axial fluid collections. Scattered nonspecific T2/FLAIR hyperintensities within the cerebral white matter most consistent with mild chronic microvascular ischemic change. Mild generalized cerebral atrophy. No hydrocephalus. Normal position of the cerebellar tonsils. No pathologic contrast enhancement. SELLA: No abnormality accounting for technique. OSSEOUS STRUCTURES/SOFT TISSUES: Normal marrow signal. The major intracranial vascular flow voids are maintained. ORBITS: No abnormality accounting for technique. SINUSES/MASTOIDS: No paranasal sinus mucosal disease. No middle ear or mastoid effusion. HEAD MRA: ANTERIOR CIRCULATION: No stenosis/occlusion, aneurysm, or high flow vascular malformation. Standard mary's igloo of Chow anatomy. POSTERIOR CIRCULATION: No stenosis/occlusion, aneurysm, or high flow vascular malformation. Balanced vertebral arteries supply a normal basilar artery. NECK MRA: RIGHT CAROTID: No measurable stenosis or dissection. LEFT CAROTID: No measurable stenosis or dissection. VERTEBRAL ARTERIES: No focal stenosis or dissection. Balanced vertebral arteries. AORTIC ARCH: Classic aortic arch anatomy with no significant stenosis at the origin of the great vessels. Procedure Note Rigoberto Rollins DO - 03/23/2025 EXAM: MR BRAIN W/O and W CONTRAST, MRA NECK (CAROTIDS) W/O and W CONTRAST,MRA BRAIN ([facility] [place]OW) W/O CONTRAST LOCATION: [facility] DATE: 03/23/2025 INDICATION: 3 days left upper extremity numbness, clumsiness, knownvasculopath COMPARISON: None. CONTRAST: 10 ml Gadavist TECHNIQUE: 1) Routine multiplanar multisequence head MRI without and with intravenouscontrast. 2) 3D snjs-cs-nfylne head MRA without intravenous contrast. 3) Neck MRA without and with IV contrast. Stenosis measurements madeaccording to NASCET criteria unless otherwise specified. FINDINGS: HEAD MRI: INTRACRANIAL CONTENTS: No acute or subacute infarct. No mass, acutehemorrhage, or extra-axial fluid collections. Scattered nonspecificT2/FLAIR hyperintensities within the cerebral white matter most consistentwith mild chronic microvascular ischemic change. Mild generalized cerebral atrophy. No hydrocephalus. Normalposition of the cerebellar tonsils. No pathologic contrast enhancement. SELLA: No abnormality accounting for technique. OSSEOUS STRUCTURES/SOFT TISSUES: Normal marrow signal. The majorintracranial vascular flow voids are maintained. ORBITS: No abnormality accounting for technique. SINUSES/MASTOIDS: No paranasal sinus mucosal disease. No middle ear ormastoid effusion. HEAD MRA: ANTERIOR CIRCULATION: No stenosis/occlusion, aneurysm, or high flowvascular malformation. Standard mary's igloo of Chow anatomy. POSTERIOR CIRCULATION: No stenosis/occlusion, aneurysm, or high flowvascular malformation. Balanced vertebral arteries supply a normal basilarartery. NECK MRA: RIGHT CAROTID: No measurable stenosis or dissection. LEFT CAROTID: No measurable stenosis or dissection. VERTEBRAL ARTERIES: No focal stenosis or dissection. Balanced vertebralarteries. AORTIC ARCH: Classic aortic arch anatomy with no significant stenosis atthe origin of the great vessels. IMPRESSION: HEAD MRI: 1. No imaging evidence indicative of acute or subacute infarction. 2. Mild degree of cerebral parenchymal volume loss and presumed smallvessel ischemic disease. HEAD MRA: 1. No aneurysm, high flow AVM or significant stenosis identified. NECK MRA: 1. No hemodynamically significant stenoses regarding the major arterialvasculature of the neck. us Buzz Armijo MD IMG MRI ORDERABLES Precious gloria Result * MRA Angiogram Neck w/o & w Contrast (03/23/2025 4:43 PM CDT) Anatomical Region Laterality Modality Neck, SUBRAD MR NEURO, UMP MR NEURO, RAD MR Magnetic Resonance 03/23/2025 4:43 PM CDT Impressions 03/23/2025 5:03 PM CDT IMPRESSION: HEAD MRI: 1. No imaging evidence indicative of acute or subacute infarction. 2. Mild degree of cerebral parenchymal volume loss and presumed small vessel ischemic disease. HEAD MRA: 1. No aneurysm, high flow AVM or significant stenosis identified. NECK MRA: 1. No hemodynamically significant stenoses regarding the major arterial vasculature of the neck. Narrative 03/23/2025 5:03 PM CDT EXAM: MR BRAIN W/O and W CONTRAST, MRA NECK (CAROTIDS) W/O and W CONTRAST, MRA BRAIN ([place]OW) W/O CONTRAST LOCATION: [facility] DATE: 03/23/2025 INDICATION: 3 days left upper extremity numbness, clumsiness, known vasculopath COMPARISON: None. CONTRAST: 10 ml Gadavist TECHNIQUE: 1) Routine multiplanar multisequence head MRI without and with intravenous contrast. 2) 3D [id number]-[id number] head MRA without intravenous contrast. 3) Neck MRA without and with IV contrast. Stenosis measurements made according to NASCET criteria unless otherwise specified. FINDINGS: HEAD MRI: INTRACRANIAL CONTENTS: No acute or subacute infarct. No mass, acute hemorrhage, or extra-axial fluid collections. Scattered nonspecific T2/FLAIR hyperintensities within the cerebral white matter most consistent with mild chronic microvascular ischemic change. Mild generalized cerebral atrophy. No hydrocephalus. Normal position of the cerebellar tonsils. No pathologic contrast enhancement. SELLA: No abnormality accounting for technique. OSSEOUS STRUCTURES/SOFT TISSUES: Normal marrow signal. The major intracranial vascular flow voids are maintained. ORBITS: No abnormality accounting for technique. SINUSES/MASTOIDS: No paranasal sinus mucosal disease. No middle ear or mastoid effusion. HEAD MRA: ANTERIOR CIRCULATION: No stenosis/occlusion, aneurysm, or high flow vascular malformation. Standard mary's igloo of [place] anatomy. POSTERIOR CIRCULATION: No stenosis/occlusion, aneurysm, or high flow vascular malformation. Balanced vertebral arteries supply a normal basilar artery. NECK MRA: RIGHT CAROTID: No measurable stenosis or dissection. LEFT CAROTID: No measurable stenosis or dissection. VERTEBRAL ARTERIES: No focal stenosis or dissection. Balanced vertebral arteries. AORTIC ARCH: Classic aortic arch anatomy with no significant stenosis at the origin of the great vessels. Procedure Note Rigoberto Rollins DO - 03/23/2025 EXAM: MR BRAIN W/O and W CONTRAST, MRA NECK (CAROTIDS) W/O and W CONTRAST,MRA BRAIN ([place]OW) W/O CONTRAST LOCATION: [facility] DATE: 03/23/2025 INDICATION: 3 days left upper extremity numbness, clumsiness, knownvasculopath COMPARISON: None. CONTRAST: 10 ml Gadavist TECHNIQUE: 1) Routine multiplanar multisequence head MRI without and with intravenouscontrast. 2) 3D ykia-qk-zmapjz head MRA without intravenous contrast. 3) Neck MRA without and with IV contrast. Stenosis measurements madeaccording to NASCET criteria unless otherwise specified. FINDINGS: HEAD MRI: INTRACRANIAL CONTENTS: No acute or subacute infarct. No mass, acutehemorrhage, or extra-axial fluid collections. Scattered nonspecificT2/FLAIR hyperintensities within the cerebral white matter most consistentwith mild chronic microvascular ischemic change. Mild generalized cerebral atrophy. No hydrocephalus. Normalposition of the cerebellar tonsils. No pathologic contrast enhancement. SELLA: No abnormality accounting for technique. OSSEOUS STRUCTURES/SOFT TISSUES: Normal marrow signal. The majorintracranial vascular flow voids are maintained. ORBITS: No abnormality accounting for technique. SINUSES/MASTOIDS: No paranasal sinus mucosal disease. No middle ear ormastoid effusion. HEAD MRA: ANTERIOR CIRCULATION: No stenosis/occlusion, aneurysm, or high flowvascular malformation. Standard mary's igloo of Chow anatomy. POSTERIOR CIRCULATION: No stenosis/occlusion, aneurysm, or high flowvascular malformation. Balanced vertebral arteries supply a normal basilarartery. NECK MRA: RIGHT CAROTID: No measurable stenosis or dissection. LEFT CAROTID: No measurable stenosis or dissection. VERTEBRAL ARTERIES: No focal stenosis or dissection. Balanced vertebralarteries. AORTIC ARCH: Classic aortic arch anatomy with no significant stenosis atthe origin of the great vessels. IMPRESSION: HEAD MRI: 1. No imaging evidence indicative of acute or subacute infarction. 2. Mild degree of cerebral parenchymal volume loss and presumed smallvessel ischemic disease. HEAD MRA: 1. No aneurysm, high flow AVM or significant stenosis identified. NECK MRA: 1. No hemodynamically significant stenoses regarding the major arterialvasculature of the neck. us Buzz Armijo MD IMG MRI ORDERABLES Precious gloria Result * MRA Angiogram Head w/o Contrast (03/23/2025 4:43 PM CDT) Anatomical Region Laterality Modality Head, SUBRAD MR NEURO, UMP MR NEURO, RAD MR Magnetic Resonance 03/23/2025 4:43 PM CDT Impressions 03/23/2025 5:03 PM CDT IMPRESSION: HEAD MRI: 1. No imaging evidence indicative of acute or subacute infarction. 2. Mild degree of cerebral parenchymal volume loss and presumed small vessel ischemic disease. HEAD MRA: 1. No aneurysm, high flow AVM or significant stenosis identified. NECK MRA: 1. No hemodynamically significant stenoses regarding the major arterial vasculature of the neck. Narrative 03/23/2025 5:03 PM CDT EXAM: MR BRAIN W/O and W CONTRAST, MRA NECK (CAROTIDS) W/O and W CONTRAST, MRA BRAIN ([place]OW) W/O CONTRAST LOCATION: [facility] DATE: 03/23/2025 INDICATION: 3 days left upper extremity numbness, clumsiness, known vasculopath COMPARISON: None. CONTRAST: 10 ml Gadavist TECHNIQUE: 1) Routine multiplanar multisequence head MRI without and with intravenous contrast. 2) 3D onun-an-kwnadn head MRA without intravenous contrast. 3) Neck MRA without and with IV contrast. Stenosis measurements made according to NASCET criteria unless otherwise specified. FINDINGS: HEAD MRI: INTRACRANIAL CONTENTS: No acute or subacute infarct. No mass, acute hemorrhage, or extra-axial fluid collections. Scattered nonspecific T2/FLAIR hyperintensities within the cerebral white matter most consistent with mild chronic microvascular ischemic change. Mild generalized cerebral atrophy. No hydrocephalus. Normal position of the cerebellar tonsils. No pathologic contrast enhancement. SELLA: No abnormality accounting for technique. OSSEOUS STRUCTURES/SOFT TISSUES: Normal marrow signal. The major intracranial vascular flow voids are maintained. ORBITS: No abnormality accounting for technique. SINUSES/MASTOIDS: No paranasal sinus mucosal disease. No middle ear or mastoid effusion. HEAD MRA: ANTERIOR CIRCULATION: No stenosis/occlusion, aneurysm, or high flow vascular malformation. Standard mary's igloo of Chow anatomy. POSTERIOR CIRCULATION: No stenosis/occlusion, aneurysm, or high flow vascular malformation. Balanced vertebral arteries supply a normal basilar artery. NECK MRA: RIGHT CAROTID: No measurable stenosis or dissection. LEFT CAROTID: No measurable stenosis or dissection. VERTEBRAL ARTERIES: No focal stenosis or dissection. Balanced vertebral arteries. AORTIC ARCH: Classic aortic arch anatomy with no significant stenosis at the origin of the great vessels. Procedure Note Rigoberto Rollins, - 03/23/2025 EXAM: MR BRAIN W/O and W CONTRAST, MRA NECK (CAROTIDS) W/O and W CONTRAST,MRA BRAIN ([place]OW) W/O CONTRAST LOCATION: [facility] DATE: 03/23/2025 INDICATION: 3 days left upper extremity numbness, clumsiness, knownvasculopath COMPARISON: None. CONTRAST: 10 ml Gadavist TECHNIQUE: 1) Routine multiplanar multisequence head MRI without and with intravenouscontrast. 2) 3D pkid-ym-umxxtt head MRA without intravenous contrast. 3) Neck MRA without and with IV contrast. Stenosis measurements madeaccording to NASCET criteria unless otherwise specified. FINDINGS: HEAD MRI: INTRACRANIAL CONTENTS: No acute or subacute infarct. No mass, acutehemorrhage, or extra-axial fluid collections. Scattered nonspecificT2/FLAIR hyperintensities within the cerebral white matter most consistentwith mild chronic microvascular ischemic change. Mild generalized cerebral atrophy. No hydrocephalus. Normalposition of the cerebellar tonsils. No pathologic contrast enhancement. SELLA: No abnormality accounting for technique. OSSEOUS STRUCTURES/SOFT TISSUES: Normal marrow signal. The majorintracranial vascular flow voids are maintained. ORBITS: No abnormality accounting for technique. SINUSES/MASTOIDS: No paranasal sinus mucosal disease. No middle ear ormastoid effusion. HEAD MRA: ANTERIOR CIRCULATION: No stenosis/occlusion, aneurysm, or high flowvascular malformation. Standard mary's igloo of Chow anatomy. POSTERIOR CIRCULATION: No stenosis/occlusion, aneurysm, or high flowvascular malformation. Balanced vertebral arteries supply a normal basilarartery. NECK MRA: RIGHT CAROTID: No measurable stenosis or dissection. LEFT CAROTID: No measurable stenosis or dissection. VERTEBRAL ARTERIES: No focal stenosis or dissection. Balanced vertebralarteries. AORTIC ARCH: Classic aortic arch anatomy with no significant stenosis atthe origin of the great vessels. IMPRESSION: HEAD MRI: 1. No imaging evidence indicative of acute or subacute infarction. 2. Mild degree of cerebral parenchymal volume loss and presumed smallvessel ischemic disease. HEAD MRA: 1. No aneurysm, high flow AVM or significant stenosis identified. NECK MRA: 1. No hemodynamically significant stenoses regarding the major arterialvasculature of the neck. us Buzz Armijo MD IMG MRI ORDERABLES Precious juani Result * CTA Abdomen Pelvis Runoff w Contrast (03/23/2025 3:44 PM CDT) Anatomical Region Laterality Modality Lower Extremity, SUBRAD IR P ROCEDURE, UMP CT CTA, RAD CT Computed Tomography 03/23/2025 3:44 PM CDT Impressions 03/23/2025 5:14 PM CDT IMPRESSION: 1. Normal-caliber abdominal aorta. No acute aortic findings. 2. Right arterial run-off: Occluded common iliac artery with reconstituted flow at the iliac bifurcation. No significant femoral-popliteal or infrapopliteal stenosis. 3. 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 Remainder of the iliac inflow is patent. No significant femoral-popliteal or infrapopliteal stenosis. 4. Evolution of previous pancreatitis. Cystic lesion at the pancreatic neck is mildly decreased in size from the 12/19/2024 MRI. New intermediate fluid density along the anterior border of the pancreatic body and tail is present with a maximum thickness of 1.5 cm. No associated gas. Narrative 03/23/2025 5:14 PM CDT EXAM: CTA ABDOMEN PELVIS RUNOFF W CONTRAST LOCATION: [facility] DATE: 03/23/2025 INDICATION: 2-3 months of worsening claudication symptoms, now with symptoms at rest, right worse than left. COMPARISON: CT from 12/20/2024. TECHNIQUE: Helical acquisition through the abdomen, pelvis, and bilateral lower extremities was performed during the arterial phase of contrast enhancement using IV contrast. 2D and 3D reconstructions were performed by the lead neurodiagnostic technologist. Dose reduction techniques were used. CONTRAST: 90 mL Isovue 370. FINDINGS: AORTA: Distal thoracic and abdominal aorta are nonaneurysmal. There is mild to moderate mixed atheromatous plaque involving the aorta, particularly at the infrarenal segment. No acute aortic findings. Celiac and SMA are widely patent. ROSENDO has moderate ostial stenosis but remains patent. Bilateral main renal arteries remain patent. RIGHT LEG: Common iliac artery is occluded at its origin. Reconstituted flow at the iliac bifurcation with moderate internal iliac artery ostial stenosis. External iliac artery is patent. Common femoral artery is patent with mild scattered plaque. Profunda is diminutive but patent. SFA and popliteal arteries are patent without significant plaque or stenosis. Intact 3-vessel infrapopliteal run-off. LEFT LEG: Severe to near-occlusive stenosis at the common iliac artery origin. Remainder of the common iliac artery is patent with mild post-stenotic dilation to 13 mm at its proximal segment. Internal and external iliac arteries are patent. Common femoral, profunda, SFA, and popliteal arteries are patent without significant plaque or stenosis. Mild plaque at the distal tibioperoneal trunk. Intact 3-vessel infrapopliteal run-off. LOWER CHEST: Negative. HEPATOBILIARY: Arterial phase imaging of the liver demonstrates no suspicious lesions. Gallbladder is not visualized. PANCREAS: Cystic lesion at the pancreatic neck is again visualized measuring 3.3 x 3.4 cm diameter. Persistent fullness throughout the pancreatic body without pancreatic ductal dilatation. Curvilinear intermediate fluid abutting the anterior aspect of the pancreatic body and tail is increased from the previous exam. This has a maximum axial thickness of 1.5 cm diameter. SPLEEN: Normal. ADRENAL GLANDS: Normal. KIDNEYS/BLADDER: Normal. BOWEL: Bowel is nonobstructed. No tonya-enteric fat stranding. No ascites. LYMPH NODES: Normal. MUSCULOSKELETAL: Tiny fat-containing ventral hernias. No acute or destructive osseous lesions. Procedure Note Isaiah Jacob MD - 03/23/2025 EXAM: CTA ABDOMEN PELVIS RUNOFF W CONTRAST LOCATION: [facility] DATE: 03/23/2025 INDICATION: 2-3 months of worsening claudication symptoms, now withsymptoms at rest, right worse than left. COMPARISON: CT from 12/20/2024. TECHNIQUE: Helical acquisition through the abdomen, pelvis, and bilaterallower extremities was performed during the arterial phase of contrastenhancement using IV contrast. 2D and 3D reconstructions were performed bythe lead neurodiagnostic technologist. Dose reduction techniques were used. CONTRAST: 90 mL Isovue 370. FINDINGS: AORTA: Distal thoracic and abdominal aorta are nonaneurysmal. There ismild to moderate mixed atheromatous plaque involving the aorta,particularly at the infrarenal segment. No acute aortic findings. Celiac and SMA are widely patent. ROSENDO has moderate ostial stenosis butremains patent. Bilateral main renal arteries remain patent. RIGHT LEG: Common iliac artery is occluded at its origin. Reconstitutedflow at the iliac bifurcation with moderate internal iliac artery ostialstenosis. External iliac artery is patent. Common femoral artery is patent with mild scattered plaque. Profunda isdiminutive but patent. SFA and popliteal arteries are patent withoutsignificant plaque or stenosis. Intact 3-vessel infrapopliteal run-off. LEFT LEG: Severe to near-occlusive stenosis at the common iliac arteryorigin. Remainder of the common iliac artery is patent with mildpost-stenotic dilation to 13 mm at its proximal segment. Internal andexternal iliac arteries are patent. Common femoral, profunda, SFA, and popliteal arteries are patent withoutsignificant plaque or stenosis. Mild plaque at the distal tibioperoneal trunk. Intact 3-vesselinfrapopliteal run-off. LOWER CHEST: Negative. HEPATOBILIARY: Arterial phase imaging of the liver demonstrates nosuspicious lesions. Gallbladder is not visualized. PANCREAS: Cystic lesion at the pancreatic neck is again visualizedmeasuring 3.3 x 3.4 cm diameter. Persistent fullness throughout thepancreatic body without pancreatic ductal dilatation. Curvilinearintermediate fluid abutting the anterior aspect of the pancreatic body and tail is increased from the previous exam. This hasa maximum axial thickness of 1.5 cm diameter. SPLEEN: Normal. ADRENAL GLANDS: Normal. KIDNEYS/BLADDER: Normal. BOWEL: Bowel is nonobstructed. No tonya-enteric fat stranding. Noascites. LYMPH NODES: Normal. MUSCULOSKELETAL: Tiny fat-containing ventral hernias. No acute ordestructive osseous lesions. IMPRESSION: 1. Normal-caliber abdominal aorta. No acute aortic findings. 2. Right arterial run-off: Occluded common iliac artery withreconstituted flow at the iliac bifurcation. No significantfemoral-popliteal or infrapopliteal stenosis. 3. Left arterial run-off: Near-occlusion of the common iliac artery atits origin. Remainder of the iliac inflow is patent. No significantfemoral-popliteal or infrapopliteal stenosis. 4. Evolution of previous pancreatitis. Cystic lesion at the pancreaticneck is mildly decreased in size from the 12/19/2024 MRI. New intermediatefluid density along the anterior border of the pancreatic body and tail ispresent with a maximum thickness of 1.5 cm. No associated gas. Buzz Armijo MD IMG CT ORDERABLES Final Result * Creatinine POCT (03/23/2025 2:57 PM CDT) Creatinine POCT 1.2 0.7 - 1.2 mg/dL 03/23/2025 3:02 PM CDT [facility] POC GFR, ESTIMATED POCT >60 >60 mL/min/1.7 3m2 03/23/2025 3:02 PM CDT [facility] P[facility] Blood, venous BLOOD SPECIMEN / Unknown 03/23/2025 2:57 PM CDT 03/23/2025 3:02 PM CDT Narrative [facility] POC - 03/23/2025 3:02 PM CDT Reference intervals for this test were updated on 11/17/2024 to standardize reference intervals for creatinine measured by different instruments. There may be differences in the flagging of prior results with similar values performed with this method. Those prior results can be interpreted in the context of the updated reference intervals. Buzz Armijo MD LAB - BEAKER POCT Final Result [facility] POC [facility] [address] [facility] Lab (1st floor, no room number) [place] [address], [facility] * Extra Red Top Tube (03/23/2025 2:22 PM CDT) Hold Specimen JIC 03/23/2025 3:31 PM CDT [facility] Blood STRUCTURE OF RIGHT UPPER LIMB / Unknown Venipuncture / Unknown 03/23/2025 2:22 PM CDT 03/23/2025 2:26 PM CDT Buzz Armijo MD LAB - BLOOD ORDERABLES Final Result LABORATORY [facility] [address] Lab (1st floor, no room number) [place] [phone] [place] [address] * Extra Blue Top Tube (03/23/2025 2:22 PM CDT) Hold Specimen JIC 03/23/2025 3:31 PM CDT [facility] Blood STRUCTURE OF RIGHT UPPER LIMB / Unknown Venipuncture / Unknown 03/23/2025 2:22 PM CDT 03/23/2025 2:26 PM CDT Buzz Armijo MD LAB - BLOOD ORDERABLES Final Result Performing Organization Address City/[facility]/ZIP Co de Phone Number LABORATORY [facility] [address] Lab (1st floor, no room number) [address] * (ABNORMAL) CBC with platelets and differential (03/23/2025 2:22 PM CDT) WBC Count 11.2(H) 4.0 - 11.0 10e3/uL 03/23/2025 2:29 PM CDT [facility] RBC Count 4.75 4.40 - 5.90 10e6/uL 03/23/2025 2:29 PM CDT [facility] Hemoglobin 15.8 13.3 - 17.7 g/dL 03/23/2025 2:29 PM CDT [facility] Hematocrit 45.7 40.0 - 53.0 % 03/23/2025 2:29 PM CDT [facility] MCV 96 78 - 100 fL 03/23/2025 2:29 PM CDT [facility] MCH 33.3(H) 26.5 - 33.0 pg 03/23/2025 2:29 PM CDT [facility] MCHC 34.6 31.5 - 36.5 g/dL 03/23/2025 2:29 PM CDT [facility] RDW 14.1 10.0 - 15.0 % 03/23/2025 2:29 PM CDT [facility] Platelet Count 339 150 - 450 10e3/uL 03/23/2025 2:29 PM CDT [facility] % Neutrophils 69 % 03/23/2025 2:29 PM CDT [facility] % Lymphocytes 20 % 03/23/2025 2:29 PM CDT [facility] % Monocytes 9 % 03/23/2025 2:29 PM CDT [facility] % Eosinophils 1 % 03/23/2025 2:29 PM CDT [facility] % Basophils 0 % 03/23/2025 2:29 PM CDT [facility] % Immature Granulocytes 0 % 03/23/2025 2:29 PM CDT [facility] NRBCs per 100 WBC 0 <1 /100 025 2:29 PM CDT [facility] Absolute Neutrophils 7.7 1.6 - 8.3 10e3/uL 03/23/2025 2:29 PM CDT [facility] Absolute Lymphocytes 2.3 0.8 - 5.3 10e3/uL 03/23/2025 2:29 PM CDT [facility] Absolute Monocytes 1.0 0.0 - 1.3 10e3/uL 03/23/2025 2:29 PM CDT [facility] Absolute Eosinophils 0.1 0.0 - 0.7 10e3/uL 03/23/2025 2:29 PM CDT [facility] Absolute Basophils 0.0 0.0 - 0.2 10e3/uL 03/23/2025 2:29 PM CDT [facility] Absolute Immature Granulocytes 0.0 <=0.4 10e3/uL 03/23/2025 2:29 PM CDT [facility] Absolute NRBCs 0.0 10e3/uL 03/23/2025 2:29 PM CDT [facility] Blood STRUCTURE OF RIGHT UPPER LIMB / Unknown Venipuncture / Unknown 03/23/2025 2:22 PM CDT 03/23/2025 2:26 PM CDT us Buzz Armijo MD LAB - BLOOD ORDERABLES Final Result [facility] [address] Lab (1st floor, no room number) [place] [address] * Troponin T, High Sensitivity (03/23/2025 2:22 PM CDT) Troponin T, High Sensitivity <6 <=22 ng/L 03/23/2025 2:56 PM CDT LABORATORY Comment: Either a High Sensitivity Troponin T baseline (0 hours) value = 100 ng/L, or an increase in High Sensitivity Troponin T = 7 ng/L at 2 hours compared to 0 hours (2-0 hours), suggests myocardial injury, and urgent clinical attention is required. If the 2-0 hours increase is <7 ng/L, a High Sensitivity Troponin T result above gender-specific reference ranges warrants further evaluation. Recommendations for further evaluation include correlation with clinical decision-making tool (e.g., HEART), a 3rd High Sensitivity Troponin T test 2 hours after the 2nd (a 20% change from baseline would represent concern), admission for observation, close PCC/cardiology follow-up, or urgent outpatient provocative testing. Blood STRUCTURE OF RIGHT UPPER LIMB / Unknown Venipuncture / Unknown 03/23/2025 2:22 PM CDT 03/23/2025 2:26 PM CDT Buzz Armijo MD LAB - BLOOD ORDERABLES Final Result [facility] [address] Lab (1st floor, no room number) [place] [address] * Phosphorus (03/23/2025 2:22 PM CDT) Pathologist [facility] Phosphorus 3.1 2.5 - 4.5 mg/dL 03/23/2025 2:56 PM CDT LABORATORY Blood STRUCTURE OF RIGHT UPPER LIMB / Unknown Venipuncture / Unknown 03/23/2025 2:22 PM CDT 03/23/2025 2:26 PM CDT Buzz Armijo MD LAB - BLOOD ORDERABLES Final Result [facility] [address] Lab (1st floor, no room number) [place] [address] * Magnesium (03/23/2025 2:22 PM CDT) Magnesium 2.1 1.7 - 2.3 mg/dL 03/23/2025 2:56 PM CDT LABORATORY Blood STRUCTURE OF RIGHT UPPER LIMB / Unknown Venipuncture / Unknown 03/23/2025 2:22 PM CDT 03/23/2025 2:26 PM CDT Buzz Armijo MD LAB - BLOOD ORDERABLES Final Result Performing Organization Address [facility]/ZIP Co de Phone Number [facility] [address] Lab (1st floor, no room number) [place] [phone] * Lipid panel reflex to direct LDL (03/23/2025 2:22 PM CDT) Cholesterol 165 <200 mg/dL 03/23/2025 9:47 PM CDT [facility] Triglycerides 134 <150 mg/dL 03/23/2025 9:47 PM CDT [facility] Direct Measure HDL 79 >=40 mg/dL 2024 9:47 PM CDT [facility] LDL Cholesterol Calculated 59 <100 mg/dL 03/23/2025 9:47 PM CDT [facility] Comment:LDL calculated using the Friedewald equation. Non HDL Cholesterol 86 <130 mg/dL 03/23/2025 9:47 PM CDT [facility] Blood STRUCTURE OF RIGHT UPPER LIMB / Unknown Venipuncture / Unknown 03/23/2025 2:22 PM CDT 03/23/2025 2:26 PM CDT Narrative [facility] - 03/23/2025 9:47 PM CDT Cholesterol Desirable: < 200 mg/dL Borderline High: 200 - 239 mg/dL High: >= 240 mg/dL Triglycerides Normal: < 150 mg/dL Borderline High: 150 - 199 mg/dL High: 200-499 mg/dL Very High: >= 500 mg/dL Direct Measure HDL Female: >= 50 mg/dL Male: >= 40 mg/dL LDL Cholesterol Desirable: < 100 mg/dL Above Desirable: 100 - 129 mg/dL Borderline High: 130 - 159 mg/dL High: 160 - 189 mg/dL Very High: >= 190 mg/dL Non HDL Cholesterol Desirable: < 130 mg/dL Above Desirable: 130 - 159 mg/dL Borderline High: 160 - 189 mg/dL High: 190 - 219 mg/dL Very High: >= 220 mg/dL us Buzz Armijo MD LAB - BLOOD ORDERABLES Final Result [facility] [address] [facility] [place] [address] * (ABNORMAL) Basic metabolic panel (BMP) (03/23/2025 2:22 PM CDT) Sodium 140 135 - 145 mmol/L 03/23/2025 2:56 PM CDT [facility] Potassium 3.8 3.4 - 5.3 mmol/L 03/23/2025 2:56 PM CDT [facility] Chloride 104 98 - 107 mmol/L 03/23/2025 2:56 PM CDT [facility] Carbon Dioxide (CO2) 25 22 - 29 mmol/L 03/23/2025 2:56 PM CDT [facility] Anion Gap 11 7 - 15 mmol/L 03/23/2025 2:56 PM CDT [facility] Urea Nitrogen 9.1 6.0 - 20.0 mg/dL 03/23/2025 2:56 PM CDT [facility] Creatinine 1.08 0.67 - 1.17 mg/dL 03/23/2025 2:56 PM CDT [facility] GFR Estimate 82 >60 mL/min/1.7 3m2 03/23/2025 2:56 PM CDT [facility] Comment:eGFR calculated usin 2020 CKD-EPI equation. Calcium 9.3 8.8 - 10.4 mg/dL 03/23/2025 2:56 PM CDT LABORATORY Glucose 138(H) 70 - 99 mg/dL 03/23/2025 2:56 PM CDT [facility] Blood STRUCTURE OF RIGHT UPPER LIMB / Unknown Venipuncture / Unknown 03/23/2025 2:22 PM CDT 03/23/2025 2:26 PM CDT us Buzz Armijo MD LAB - BLOOD ORDERABLES Final Result LABORATORY [facility] [address] Lab (1st floor, no room number) [place] [address], [facility] * EKG 12-lead, tracing only (03/23/2025 1:26 PM CDT) Systolic Blood Pressure mmHg RADIOLOGY RESULTS Diastolic Blood Pressure mmHg RADIOLOGY RESULTS Ventricular Rate 108 BPM RAD IOLOGY RESULTS Atrial Rate 108 BPM RADIOLOG Y RESULTS OR Interval 146 ms RADIOLOG Y RESULTS QRS Duration 86 ms RADIOLO GY RESULTS QT 348 ms RADIOLOGY RESULTS QTc 466 ms RADIOLOGY RESULTS P [place] 63 degrees RADIOLOGY RESULTS R AXIS 32 degrees RADIOLOGY RESULTS T [place] 54 degrees RADIOLOGY RESULTS Interpretation ECG Sinus tachycardia Possible Left atrial enlargement Borderline ECG When compared with ECG of 18-Dec-2024 15:50, Previous ECG has undetermined rhythm, needs review Unconfirmed report - interpretation of this ECG is computer generated - see medical record for final interpretation Confirmed by - EMERGENCY ROOM, PHYSICIAN ([id number]), film editor supervisor Osman Reyes ([id number]) on 03/23/2025 2:00:19 PM RADIOLOGY RESULTS 03/23/2025 1:26 PM CDT 03/23/2025 2:00 PM CDT us Buzz Armijo MD ECG ORDERABLES Edited Result - Final RADIOLOGY RESULTS from Last 3 Months Insurance MEDICA CHOICE MEDICA CHOICE Advance Directives For more information, please contact: [phone] * Full Code (Latest Code Status on File) Date Activated Date Inactivated Comments 12/18/2024 7:08 PM 12/21/2024 6:32 PM All basic an d advanced life-sustaining interventions are performed as appropriate Question Answer Comments Code status determined by: Discussion with patie nt/ legal decision maker * Full Code Date Activated Date Inactivated Comments 04/16/2023 11:35 PM 04/19/2023 4:06 PM All basic an d advanced life-sustaining interventions are performed as appropriate Question Answer Comments Code status determined by: Discussion with patie nt/ legal decision maker Care Teams Bmet Relationship Specialty [place] [address] [place] [address] PCP - General Family Medicine 01/22/25 Ida Burr MD [address] [place] [address] Assigned Surgical Provider 12/31/24 Alea Taveras MD [address] [place] [address] Assigned Heart and Vascular Surgical Provider 04/01/25
--- OUTSIDE RECORDS SUMMARY | 2025-05-27 21:27 | XMS_ITS | Encounter Summary ---
Author Organization [facility] Address [address] [place] [address]. [place] [address] Care Team Providers Care Heel Emery Buffer Name Role Phone Ida Burr MD Unavailable Ida Aquino BRIDGE MAINTAINER Primary Care Provider [phone] Leon Taveras MD Unavailable [phone] Reason for Visit * Reason Onset Date Comments Follow Up 04/07/2025 Encounter Details Date Type Department Care Team (Late st Contact Info) Description 04/07/2025 Telephone [facility] [address] [place] [phone] Leon Taveras MD [address] [place] [id number] Follow Up Social History Tobacco Use Types Packs/Day Years Used Date Smoking Tobacco: Every Day Cigars Smokeless Tobacco: Never Alcohol Use Standard Drinks/Week Comments Yes 0 [...] in an abandoned building, in an overnight senior living, or couch-surfing.) Yes 12/18/2024 Are you worried [...] AM CDT Sexual Orientation Not on file documented as of this encounter Miscellaneous Notes * Telephone Encounter - July Cifuentes - 04/09/2025 9:38 AM CDT LM for patient to call us back to schedule: Please schedule an appointment with Dr Taveras in 1-2 weeks as a return pt to discuss aortobifemoralbypass planning (try to schedule for April 13) Appt note in order comments This is our 3rd and final attempt to schedule this appointment. * Telephone Encounter - Deisi Mora - 04/08/2025 9:31 AM CDT Left voicemail for patient to schedule appointment(s), stated this our 2nd attempt at scheduling and provided [facility] telephone number for patient to call back to schedule. * Telephone Encounter - July Cifuentes - 04/07/2025 1:52 PM CDT LM for patient to call us back to schedule: an appointment with Dr Taveras in 1-2 weeks as a return pt to discuss aortobifemoral bypass planning(try to schedule for April 13) Appt note in order comments. * Telephone Encounter - Deisi Mora - 04/07/2025 10:58 AM CDT Attempted to call patient someone answers the phone and hangs up. * Telephone Encounter - Lorraine Gil RN - 04/07/2025 10:48 AM CDT Per 03/30/[address] Taveras, pt needs the following: Please schedule an appointment with Dr Taveras in 1-2 weeks as a return pt to discuss aortobifemoralbypass planning (try to schedule for April 13) Routing to scheduling to contact patient to coordinate above. Appt note in order comments. Lorraine Gil RN [facility] Office: [phone] documented in this encounter Plan of Treatment Not on file documented as of this encounter Visit Diagnoses Not on filedocumented in this encounter Care Teams Heel Emery Buffer Relationship Specialty [place] [address] [place] [address] PCP - General Family Medicine 01/22/25 Ida Burr MD [address] [place] [address] Assigned Surgical Provider 12/31/24 Leon Taveras MD [address] [place] [address] Assigned Heart and Vascular Surgical Provider 04/01/25 documented as of this encounter
[2025-05-27] MEDS: FAMOTIDINE 10 MG/ML inj 20 MG IVP (21:32)
[2025-05-27] MEDS: ACETAMINOPHEN 500 MG TABLET 1000 MG PO (21:49)
[2025-05-28] VITALS (9 sets, daily range): BP systolic 107–171; BP diastolic 58–101; PULSE 54–92; RESP 16–18; TEMP 36.4–37; O2SAT 90–98
[2025-05-28] MEDS: SODIUM CHLORIDE 0.9 % (FLUSH) 10 ML SYRINGE 5 ML IVF ×4 (00:04→17:30)
[2025-05-28 06:53] LABS: Hematocrit* 38.1 % (37.0-53.0); Hemoglobin* 13.0 gm/dL (13.5-17.5); Mean Corpuscular HGB Conc 34 gm/dL (32-36); Mean Corpuscular Hemoglobin 34 pg (26-34); Mean Corpuscular Volume 98 fL (80-100); Red Blood Count* 3.87 m/uL (4.30-5.90); White Blood Count* 12.13 K/uL (4.50-11.00)
[2025-05-28 06:54] LABS: Slide Review Reflex No
[2025-05-28 06:56] LABS: Chloride* 108 mmol/L (96-114); Potassium* 3.6 mmol/L (3.6-5.1); Sodium* 135 mmol/L (135-149)
[2025-05-28 06:59] LABS: Anion Gap 2 mEq/L (7-15); Blood Urea Nitrogen* 7 mg/dL (7-30); Calcium* 8.4 mg/dL (8.4-10.6); Carbon Dioxide* 25 mmol/L (20-32); Creatinine* 0.6 mg/dL (0.5-1.5); Est. Creatinine Clearance* 126.15; Estimated Glomerular Filt Rate 115 ml/min; Glucose* 113 mg/dL (60-115)
--- NOTE | 2025-05-28 07:31 | PC.NURSE ---
End of Shift: Pt pleasant, alert and oriented. Arrived to floor at 2200. VSS. Tele?reads NSR. Pain rated 4-8/10 throughout shift, prns provided. NPO. Pt in bed, appears to be resting, call light within reach.?
[2025-05-28] MEDS: METOPROLOL TARTRATE 50 MG TABLET PO (09:02)
[2025-05-28] MEDS: OMEPRAZOLE 20 MG CAPSULE DR 40 MG PO (09:02)
[2025-05-28] MEDS: ATORVASTATIN CALCIUM 10 MG TABLET 20 MG PO (09:02)
[2025-05-28] MEDS: ASPIRIN EC 325 MG TABLET PO (09:03)
[2025-05-28] MEDS: LOSARTAN POTASSIUM 50 MG TABLET 25 MG PO (09:03)
--- NOTE | 2025-05-28 11:04 | PM.IMPN1 ---
Assessment and Plan Assessment and plan (1) Alcoholic pancreatitis: Problem comment: -acute on chronic, recurrent, 3rd episode -CT shows Subtle peripancreatic head inflammation, possibly mild acute uncomplicated pancreatitis -lipase 1833 on admission and down to 1000 on 05/28/2025 -IVF, NPO, pain and nausea management has helped. On 05/28/2025 advance to clear liquids and decrease IV fluid rate. -consider General surgery consult if new or worsening symptoms or no resolve -increased activity while in hospital Status: Acute (2) Gastritis: Problem comment: -history of gastric ulcer, Turner's esophagus without dysplasia -CT shows Mild gastric antral/proximal duodenal wall thickening, likely reactive. Primary gastritis/duodenitis could have a similar appearance -H pylori ordered -continue PPI Status: Acute (3) Pancreatic cyst: Problem comment: -history of per EMR -CT shows 2.6 centimeter and 1.6 centimeter pancreatic head cystic lesions, likely pseudocysts in this patient with history of pancreatitis Status: Acute (4) Hypertension: Problem comment: -continue amlodipine, losartan, metoprolol Status: Acute (5) Hyperlipidemia: Problem comment: -continue statin Status: Acute (6) Tobacco use: Problem comment: -chronic Status: Acute (7) Alcohol use disorder: Problem comment: - ordinarily drinks 4-6 cans of beer every night after he returns from work - 05/28/2025: Patient more resolved about not drinking alcohol hereafter Status: Acute Plan 1. Reviewed my impression, plans, recommendations with patient and his 2. Answered their questions to their satisfaction 3. Will ask social media editor to offer community treatment options for alcohol use disorder 4. They are agreeable with above stated plans and recommendations Total Time Spent Total Time Spent: 40 minutes Subjective Date Seen: 05/28/25 Interval history: Admission history of present illness: ?54 year old male past medical history significant for hypertension, hyperglycemia, WPW s/p ablation 2012, Turner's esophagus, alcohol-induced pancreatitis, pancreatic cyst, gastric ulcer, migraine, tobacco use is admitted to the medical floor from the ED with acute recurrent alcoholic pancreatitis. ?Patient is seen with at bedside. Came to this ED after recent experience of having to wait 9 hours in the [place] ED. Complaining of sudden onset severe abdominal pain with nausea and vomiting since Sunday afternoon. Pain is sharp and stabbing in nature in the epigastric region, radiating to the right abdomen and into his back. Similar pains with previous episodes of pancreatitis. Last episode of vomiting was around 1:30 a.m. today. Has been able to take in small amounts of water and electrolytes today. Pain worsened again this afternoon. Has not had any fevers. Denies chest pain or shortness of breath. No change in bowels. No UTI symptoms. ?PCP is Gloria Malave. Drinks 4-6 beers daily, has been cutting back, previously drinking 8+ daily. Active smoker, ramy sweets.? Hospital day 2, 05/28/2025: Nausea and vomiting have now resolved. Abdominal epigastric pain much improved from yesterday. Pain level prior to admission to the hospital was as high as 7 or 8. Pain level much better controlled today, rated at 4 or 5 at worse today. With pain reducing medications he states he hardly notices the epigastric discomfort. Has not had anything to eat or drink for about 24 hours. States he is craving his black coffee to drink. Not interested in eating yet at this time. Denies cardiopulmonary symptoms. Tolerating increased activities. Patient tearful about his current situation. He tells me he understands things need to be different hereafter. His intention is to be more open with his to obtain her support in his efforts to try to achieve and maintain sobriety hereafter. Exam Narrative: Exam Narrative: I assess this the patient in his hospital room and as he is walking in hospital hallways. He appears comfortable and in no acute distress. Appropriately anxious. Friendly, articulate, cooperative. Vision and hearing are adequate. Independent in transfer, station, and gait. No focal motor neurologic deficits. Lungs clear to auscultation. Heart tones with regular rhythm. Abdomen with active bowel sounds, soft. Subjective discomfort to palpation without rebound or guarding. Extremities without edema. Skin is warm, dry, intact. Const: Vital Signs, click to edit/add: Vital Signs - 24 hr 05/27/25 19:47 05/27/25 20:10 05/27/25 20:15 Temperature 99.5 F Pulse Rate 108 H Pulse Rate [Pulse Oximeter] 119 H Respiratory Rate 28 H Blood Pressure 162/88 H Blood Pressure [Le ft Arm] Blood Pressure [Ri ght Upper Arm] 159/90 H Pulse Oximetry 99 97 98 Oxygen Delivery Me thod Room Air 05/27/25 20:30 05/27/25 20:55 05/27/25 20:59 Temperature Pulse Rate 108 H 99 105 H Pulse Rate [Pulse Oximeter] Respiratory Rate 24 17 Blood Pressure 166/92 H Blood Pressure [Le ft Arm] Blood Pressure [Ri ght Upper Arm] Pulse Oximetry 98 94 97 Oxygen Delivery Mo thod 05/27/25 21:00 05/27/25 21:15 05/27/25 22:00 Temperature 98.2 F Pulse Rate 100 98 Pulse Rate [Pulse Oximeter] 88 Respiratory Rate 18 15 16 Blood Pressure Blood Pressure [Le ft Arm] 164/94 H Blood Pressure [Ri ght Upper Arm] Pulse Oximetry 96 95 94 [facility] 05/27/25 22:00 05/27/25 22:02 05/27/25 23:00 Temperature Pulse Rate 88 Pulse Rate [Pulse Oximeter] 88 Respiratory Rate 16 16 Blood Pressure Blood Pressure [Le ft Arm] Blood Pressure [Ri ght Upper Arm] Pulse Oximetry 94 [facility] 05/28/25 02:15 05/28/25 07:00 05/28/25 07:00 Temperature 97.9 F 98.6 F Pulse Rate 77 Pulse Rate [Pulse Oximeter] 88 73 Respiratory Rate 18 16 Blood Pressure Blood Pressure [Le ft Arm] 135/86 107/58 L Blood Pressure [Ri ght Upper Arm] Pulse Oximetry 90 96 [facility] 05/28/25 07:00 05/28/25 08:55 Temperature Pulse Rate Pulse Rate [Pulse Oximeter] 73 68 Respiratory Rate Blood Pressure Blood Pressure [Le ft Arm] 124/84 Blood Pressure [Ri ght Upper Arm] Pulse Oximetry 96 [facility]xygen [facility] Labs Labs: Laboratory Results - last 24 hr 05/27/25 05/27/25 05/27/25 20:00 20:00 20:00 WBC 16.60 H RBC 4.69 Hgb 15.4 Hct 44.8 MCV 96 MCH 33 MCHC 34 RDW Coeff of Tereso 11.8 Plt Count 360 Neut % (Auto) 76.3 H Lymph % (Auto) 16.2 L Levy % (Auto) 6.7 Eos % (Auto) 0.4 Baso % (Auto) 0.1 Neut # (Auto) 12.70 H Lymph # (Auto) 2.70 Levy # (Auto) 1.10 H Eos # (Auto) 0.10 Baso # (Auto) 0.00 Abs Immat Gran (auto) 0.00 Imm/Tot Granulo (auto) 0.3 Sodium Cancelled 133 L Potassium Cancelled 3.7 Chloride Cancelled Carbon Dioxide Anion Gap BUN Creatinine Estimated Creat Clear Estimated GFR Glucose Lactate Calcium Total Bilirubin Direct Bilirubin AST ALT Alkaline Phosphatase Total Protein Albumin Lipase Ethyl Alcohol 05/27/25 05/27/25 05/27/25 20:00 20:00 20:00 WBC RBC Hgb Hct MCV MCH MCHC RDW Coeff of Tereso Plt Count Neut % (Auto) Lymph % (Auto) Levy % (Auto) Eos % (Auto) Baso % (Auto) Neut # (Auto) Lymph # (Auto) Levy # (Auto) Eos # (Auto) Baso # (Auto) Abs Immat Gran (auto) Imm/Tot Granulo (auto) Sodium Potassium Chloride 102 Carbon Dioxide Cancelled 24 Anion Gap Cancelled 7 BUN Cancelled Creatinine Estimated Creat Clear Estimated GFR Glucose Lactate Calcium Total Bilirubin Direct Bilirubin AST ALT Alkaline Phosphatase Total Protein Albumin Lipase Ethyl Alcohol 05/27/25 05/27/25 05/27/25 20:00 20:00 20:00 WBC RBC Hgb Hct MCV MCH MCHC RDW Coeff of Tereso Plt Count Neut % (Auto) Lymph % (Auto) Levy % (Auto) Eos % (Auto) Baso % (Auto) Neut # (Auto) Lymph # (Auto) Levy # (Auto) Eos # (Auto) Baso # (Auto) Abs Immat Gran (auto) Imm/Tot Granulo (auto) Sodium Potassium Chloride Carbon Dioxide Anion Gap BUN 9 Creatinine Cancelled 0.7 Estimated Creat Clear Cancelled 122.30 Estimated GFR Cancelled Glucose Lactate Calcium Total Bilirubin Direct Bilirubin AST ALT Alkaline Phosphatase Total Protein Albumin Lipase Ethyl Alcohol 05/27/25 05/27/25 05/27/25 20:00 20:00 20:00 WBC RBC Hgb Hct MCV MCH MCHC RDW Coeff of Tereso Plt Count Neut % (Auto) Lymph % (Auto) Levy % (Auto) Eos % (Auto) Baso % (Auto) Neut # (Auto) Lymph # (Auto) Levy # (Auto) Eos # (Auto) Baso # (Auto) Abs Immat Gran (auto) Imm/Tot Granulo (auto) Sodium Potassium Chloride Carbon Dioxide Anion Gap BUN Creatinine Estimated Creat Clear Estimated GFR 110 Glucose Cancelled 187 H Lactate 1.5 Calcium Cancelled 9.3 Total Bilirubin 0.7 Direct Bilirubin 0.3 AST 33 ALT 29 Alkaline Phosphatase 85 Total Protein 6.9 Albumin 3.9 Lipase 1833 H Ethyl Alcohol < 0.01 05/28/25 06:31 WBC 12.13 H RBC 3.87 L Hgb 13.0 L Hct 38.1 MCV 98 MCH 34 MCHC 34 RDW Coeff of Tereso Plt Count 311 Neut % (Auto) Lymph % (Auto) Levy % (Auto) Eos % (Auto) Baso % (Auto) Neut # (Auto) Lymph # (Auto) Levy # (Auto) Eos # (Auto) Baso # (Auto) Abs Immat Gran (auto) Imm/Tot Granulo (auto) Sodium 135 Potassium 3.6 Chloride 108 Carbon Dioxide 25 Anion Gap 2 L BUN 7 Creatinine 0.6 Estimated Creat Clear 126.15 Estimated GFR 115 Glucose 113 Lactate Calcium 8.4 Total Bilirubin Direct Bilirubin AST ALT Alkaline Phosphatase Total Protein Albumin Lipase 1072 H Ethyl Alcohol Imaging CT scan of abdomen and pelvis: Attestation: I have reviewed the pertinent imaging results. Radiologist's impression: IMPRESSION: Subtle peripancreatic head inflammation, possibly mild acute uncomplicated pancreatitis in the appropriate clinical setting. Recommend correlation with lipase. Additional 2.6 centimeter and 1.6 centimeter pancreatic head cystic lesions, likely pseudocysts in this patient with history of pancreatitis. Mild gastric antral/proximal duodenal wall thickening, likely reactive. Primary gastritis/duodenitis could have a similar appearance and should be clinically excluded. No drainable fluid collections or free intraperitoneal air. Age-indeterminate moderate L1 compression fracture. Recommend correlation with point tenderness.
--- NOTE | 2025-05-28 16:31 | PC.SOCIAL ---
Discharge planning: Per MD order, met with pt to offer information on resources and support for substance use treatment. Pt stated he did not need any resources and shared my and I are going to handle it. Pt stated he lives with his in [place] and will return there at discharge. Informed pt of how to locate resources for substance treatment and support on the [facility] website if he decides he needs this information. Pt is aware of how to request another social work visit if needed.
[2025-05-28] MEDS: NICOTINE 21 MG PATCH 1 PATCH TRANSDERMA (17:22)
--- NOTE | 2025-05-28 18:52 | PC.NURSE ---
End of shift note 276? Patient was admitted for pancreatitis. Symptoms began yesterday after dinner with severe abdominal pain. Patient states pain control has worked well. He tried to leave the unit ?to smoke? with IV pole. Nicotine patch is in place left outer arm. Regular diet, good appetite but complained of pain right after finishing his food. Ambulates independently. Accompanied by his in the room. VSS. Afebrile. Saline locked.?
[2025-05-28] MEDS: CALCIUM CARBONATE 500 MG CHEW PO (21:54)
[2025-05-29] MEDS: MAG HYDROX/ALUMINUM HYD/SIMETH 30 ML ORAL.SUSP 15 ML PO (00:11)
[2025-05-29] MEDS: SODIUM CHLORIDE 0.9 % (FLUSH) 10 ML SYRINGE 5 ML IVF ×2 (00:17→08:58)
[2025-05-29 03:10] VITALS: BP 152/92; PULSE 82; RESP 16; TEMP 36.8; O2SAT 96
--- NOTE | 2025-05-29 05:26 | PC.NURSE ---
End of Shift: Pt pleasant, alert and oriented. Arrived to floor at 2200. VSS. Tele reads NSR. Pt stated pain, prns provided. Pt educated on the use of oral pain meds over IV. Pt stated some gas pain, tums and Maalox provided, pt stated improvement.?Pt in bed, appears to be resting, call light within reach.?
[2025-05-29 06:20] LABS: Hematocrit* 40.2 % (37.0-53.0); Hemoglobin* 13.6 gm/dL (13.5-17.5); Mean Corpuscular HGB Conc 34 gm/dL (32-36); Mean Corpuscular Hemoglobin 33 pg (26-34); Mean Corpuscular Volume 98 fL (80-100); Red Blood Count* 4.09 m/uL (4.30-5.90); White Blood Count* 9.59 K/uL (4.50-11.00)
[2025-05-29 06:25] LABS: Slide Review Reflex No
[2025-05-29 06:28] LABS: Chloride* 103 mmol/L (96-114); Potassium* 3.9 mmol/L (3.6-5.1); Sodium* 137 mmol/L (135-149)
[2025-05-29 06:31] LABS: Blood Urea Nitrogen* 5 mg/dL (7-30); Creatinine* 0.7 mg/dL (0.5-1.5); Est. Creatinine Clearance* 108.52; Estimated Glomerular Filt Rate 110 ml/min
[2025-05-29 06:32] LABS: Anion Gap 2 mEq/L (7-15); Calcium* 8.9 mg/dL (8.4-10.6); Carbon Dioxide* 32 mmol/L (20-32); Glucose* 117 mg/dL (60-115)
[2025-05-29 07:00] VITALS: BP 166/93; PULSE 69; PULSE 83; RESP 18; TEMP 36.7; O2SAT 98
[2025-05-29] MEDS: ATORVASTATIN CALCIUM 10 MG TABLET 20 MG PO (08:56)
[2025-05-29] MEDS: OMEPRAZOLE 20 MG CAPSULE DR 40 MG PO (08:57)
[2025-05-29] MEDS: ASPIRIN EC 325 MG TABLET PO (08:57)
[2025-05-29] MEDS: LOSARTAN POTASSIUM 50 MG TABLET 100 MG PO (08:57)
[2025-05-29] MEDS: METOPROLOL SUCCINATE (XL) 50 MG TAB PO (08:57)
--- NOTE | 2025-05-29 11:56 | PC.NURSE ---
Discharge Note 276 Patient was very cooperative and pleasant throughout stay. VSS. Afebrile. Education on smoking cessation and alcohol abuse done. Patient has scheduled his appointment with PCP. Ambulates independently. Regular diet tolerated well. No pain reported upon discharge. Patient was discharged at 11:00 am accompanied by his spouse.
--- NOTE | 2025-05-29 17:33 | P.DS_ITS ---
DS: Providers Provider Date Seen: 05/29/25 Date of admission: 05/27/25 22:22 Primary care physician: Ida Aquino, SENIOR DB2 SYSTEMS PROGRAMMER, PRODUCT MANAGEMENT SPECIALIST Admitting Clinician: Paola Thapa MD Consults: 05/28/25 11:17 Consult to Time Clerk [CONS] Routine Comment: Reason for Consult:: Social Service Consult Attending Physician on discharge: Sukhi Sanders MD Date of Discharge: 05/29/25 DS: Diagnosis Discharge Diagnosis (1) Alcoholic pancreatitis: Status: Acute Problem details: -acute on chronic, recurrent, 3rd episode -CT shows Subtle peripancreatic head inflammation, possibly mild acute uncomplicated pancreatitis -lipase 1833 on admission and down to 1000 on 05/28/2025 -IVF, NPO, pain and nausea management has helped. On 05/28/2025 advance to clear liquids and decrease IV fluid rate. -consider General surgery consult if new or worsening symptoms or no resolve -increased activity while in hospital (2) Alcohol use disorder: Status: Acute Problem details: - ordinarily drinks 4-6 cans of beer every night after he returns from work - 05/28/2025: Patient more resolved about not drinking alcohol hereafter (3) Pancreatic cyst: Status: Acute Problem details: -history of per EMR -CT shows 2.6 centimeter and 1.6 centimeter pancreatic head cystic lesions, likely pseudocysts in this patient with history of pancreatitis (4) Tobacco use: Status: Acute Problem details: -chronic (5) Turner's esophagus without dysplasia: Status: Acute (6) Hypertension: Status: Acute Problem details: -continue amlodipine, losartan, metoprolol (7) Hyperlipidemia: Status: Acute Problem details: -continue statin DS: Summary Hospital Course Hospital Course: Admission history of present illness: ?54 year old male past medical history significant for hypertension, hyperglycemia, WPW s/p ablation 2012, Turner's esophagus, alcohol-induced pancreatitis, pancreatic cyst, gastric ulcer, migraine, tobacco use is admitted to the medical floor from the ED with acute recurrent alcoholic pancreatitis. ?Patient is seen with at bedside. Came to this ED after recent experience of having to wait 9 hours in the [facility] ED. Complaining of sudden onset severe abdominal pain with nausea and vomiting since Sunday afternoon. Pain is sharp and stabbing in nature in the epigastric region, radiating to the right abdomen and into his back. Similar pains with previous episodes of pancreatitis. Last episode of vomiting was around 1:30 a.m. today. Has been able to take in small amounts of water and electrolytes today. Pain worsened again this afternoon. Has not had any fevers. Denies chest pain or shortness of breath. No change in bowels. No UTI symptoms. ?PCP is Gloria Malave. Drinks 4-6 beers daily, has been cutting back, previously drinking 8+ daily. Active smoker, ramy sweets.? Hospital day 2, 05/28/2025: Nausea and vomiting have now resolved. Abdominal epigastric pain much improved from yesterday. Pain level prior to admission to the hospital was as high as 7 or 8. Pain level much better controlled today, rated at 4 or 5 at worse today. With pain reducing medications he states he hardly notices the epigastric discomfort. Has not had anything to eat or drink for about 24 hours. States he is craving his black coffee to drink. Not interested in eating yet at this time. Denies cardiopulmonary symptoms. Tolerating increased activities. Patient tearful about his current situation. He tells me he understands things need to be different hereafter. His intention is to be more open with his to obtain her support in his efforts to try to achieve and maintain sobriety hereafter. Hospital day 3, 05/29/2025: Much improved. Tolerating soft diet. Tolerating increased activities. Ready for discharge. Status at Discharge Functional status at discharge: independent ambulation Overall status at discharge: patient is progressing back to baseline Time Spent with Patient Time attestation: Total time spent providing and/or coordinating discharge services: Time spent: Greater than 30 minutes Exam Narrative: Exam Narrative: I assess this the patient in his hospital room and as he is walking in hospital hallways. He appears comfortable and in no acute distress. Appropriately anxious. Friendly, articulate, cooperative. Vision and hearing are adequate. Independent in transfer, station, and gait. No focal motor neurologic deficits. Lungs clear to auscultation. Heart tones with regular rhythm. Abdomen with active bowel sounds, soft. Subjective discomfort to palpation without rebound or guarding. Extremities without edema. Skin is warm, dry, intact. Const: Vital Signs, click to edit/add: Vital Signs - 24 hr 05/28/25 20:05 05/28/25 23:00 05/28/25 23:00 Temperature 98.0 F Pulse Rate 54 L Pulse Rate [Pulse Oximeter] 68 92 Respiratory Rate 16 18 Blood Pressure [Le ft Arm] 142/92 H Pulse Oximetry 97 Oxygen Delivery Me thod Room Air 05/28/25 23:55 05/29/25 03:10 05/29/25 07:00 Temperature 97.6 F 98.2 F 98.1 F Pulse Rate Pulse Rate [Pulse Oximeter] 92 82 83 Respiratory Rate 18 16 18 Blood Pressure [Le ft Arm] 171/101 H 152/92 H 166/93 H Pulse Oximetry 98 96 98 Oxygen Delivery Me thod Room Air Room Air Room Air 05/29/25 07:00 Temperature Pulse Rate 69 Pulse Rate [Pulse Oximeter] Respiratory Rate Blood Pressure [Le ft Arm] Pulse Oximetry Oxygen Delivery Me thod DS: Data Data Completed and Pending Labs on day of discharge: Labs from last 24 hours 05/29/25 06:00 WBC 9.59 RBC 4.09 L Hgb 13.6 Hct 40.2 MCV 98 MCH 33 MCHC 34 Plt Count 321 Sodium 137 Potassium 3.9 Chloride 103 Carbon Dioxide 32 Anion Gap 2 L BUN 5 L Creatinine 0.7 Estimated Creat Clear 108.52 Estimated GFR 110 Glucose 117 H Calcium 8.[address] scan - abdomen: Attestation: I have reviewed the pertinent imaging results. Radiologist's impression: IMPRESSION: Subtle peripancreatic head inflammation, possibly mild acute uncomplicated pancreatitis in the appropriate clinical setting. Recommend correlation with lipase. Additional 2.6 centimeter and 1.6 centimeter pancreatic head cystic lesions, likely pseudocysts in this patient with history of pancreatitis. Mild gastric antral/proximal duodenal wall thickening, likely reactive. Primary gastritis/duodenitis could have a similar appearance and should be clinically excluded. No drainable fluid collections or free intraperitoneal air. Age-indeterminate moderate L1 compression fracture. Recommend correlation with point tenderness. Discharge Plan Discharge Disposition: Home, Self-Care Date of Admission: 05/27/25 22:22 Attending Provider on Discharge: Sukhi Sanders Primary Care Provider: Ida Aquino Condition: Improved Anticipated Discharge Date/Time: 05/29/25 11:00 Discharge Medications: New famotidine 20 mg tablet 20 mg PO QHS Qty: 30 2RF Continued aspirin 325 mg capsule 325 mg PO DAILY omeprazole 40 mg capsule,delayed release(DR/EC) 40 mg PO DAILY atorvastatin 20 mg tablet 20 mg PO DAILY losartan 100 mg tablet 100 mg PO DAILY metoprolol succinate 50 mg tablet extended release 24 hr 50 mg PO DAILY Discharge Orders: Discharge Order (Routine); Ordered 05/29/25 Ordered By: Sukhi Sanders Patient Education: Famotidine (By mouth), How to Stop Smoking (DC), Cigarette Smoking and Your Health (GEN), Turner Esophagus (DC), Alcohol Use Disorder (DC) Additional Instructions: 1. Follow-up with primary home care physical therapist in 1-2 weeks. Consider discussion of alcohol use disorder, insomnia, tobacco use disorder, Turner Esophagus. 2. Return to work without restrictions or limitations on 06/01/2025 Activity Level: No Restrictions Discharge Diet: Regular Follow Up Appointments: Ida Aquino, MARTHA, PRODUCT MANAGEMENT SPECIALIST [Primary Care Provider, Family Practice] Referral Note: Please call [facility] at [phone] to schedule follow up appointment with PCP. Doctor would like you to be seen in 1-2 weeks from now. Forms: Patient Belongings, Work/School Release, [employer] Info Instructions
== END 2025-05-29 11:00 | disposition home or self-care (01) | DRG 439 ==
LOC: ED 21:25 → MEDSURG 21:44
PROVIDERS: Physician Assistant; Admitting Provider Family Medicine; Emergency Provider Emergency Medicine; PCP Nurse Practitioner Family; Visit Provider Family Medicine
DX: K85.20 Alcohol induced acute pancreatitis without necrosis or infection (principal); K86.2 Cyst of pancreas; K86.0 Alcohol-induced chronic pancreatitis; K29.70 Gastritis, unspecified, without bleeding; K22.70 Barrett's esophagus without dysplasia; F10.10 Alcohol abuse, uncomplicated; Z72.0 Tobacco use; I10 Essential (primary) hypertension; I45.6 Pre-excitation syndrome; Z79.82 Long term (current) use of aspirin; E78.5 Hyperlipidemia, unspecified
CPT/HCPCS: 36415; 74177; 80048; 80076; 82077; 83605; 83690; 85025; 85027; 87338; 94761; 99285; A9270; J1171; J1308; J2405; J7030; Q9967; S4990

== ENCOUNTER 2025-06-02 00:54 | Observation (INO) | payer OTHER, SELFPAY ==
--- OUTSIDE RECORDS SUMMARY | 2025-05-28 08:47 | XMS_ITS | Continuity of Care Document ---
Author Organization [facility] Address [address] [address] [place] [address] Phone Care Team Providers Care Automobile Assembler Name Role Phone Randy Zhou MD Unavailable Unavailable Allergies, Adverse Reactions, Alerts Substance Reaction Status Criticality MEPERIDINE HCL Seizures Active No Informatio n MEPERIDINE HCL Seizure Active No Informatio n Medications Medication Instructions Dosage Effective Dates (start - stop) Status Comments KAPSPARGO SPRINKLE (unknown strength) take 1 capsule by oral route every day Not Available - Active losartan 100 mg tablet take 1 tablet by oral route every day 100 MG - Active omeprazole 40 mg capsule,delayed release take 1 capsule by oral route every day before a meal 40 MG - Active cilostazol 100 mg tablet take 1 tablet by oral route every day 1/2 hour before or 2 hours after breakfast and dinner 100 MG - Active atorvastatin 40 mg tablet take 1 tablet by oral route every day 40 MG - Active vitamin B12 500 mcg-folic acid 400 mcg tablet take 1 by oral route every day 1 - Active VITAMIN D3 (unknown strength) take 1 tablet by oral route every day Not Available - Active MAGNESIUM (unknown strength) take 1 tablet by oral route every day Not Available - Active aspirin 325 mg tablet take 1 tablet by oral route every day 325 MG - Active Procedures Procedure Date Esophagoscpy, w/ablation cancelled appt Anes - Upper GI Endoscopy Offic/outpt E&m Estab Moderate 25 Ugi Endo; W/endo Ultrasound Ex 25 Ugi Endo; W/bx 1/mx Established Level 3 Subsqt Hosp-da E&m Minr Compl 5 Subsqt Hosp-da E&m Minr Compl 5 Init Inpt Cons New/est Mod-hi 5 Ugi Endo; W/bx 1/mx Ugi Endo; W/us Guid Asp/bx Subsqt Hosp-da E&m Minr Compl 3 Subsqt Hosp-da E&m Minr Compl 3 Init Inpt Cons New/est Mod-hi 3 Advance Directives Directive Yes / No Effective Date File Name No Information Encounters Encounter Description Practice Location Reason(s) For Visit Diagnoses Date Provider Providers Copied on Encounter [facility], [address] [address], [place], [id number], [place] tel:[phone] [facility] No Information 5 Abelardo Padilla. [address] [place] [address], [id number], [place]. tel:[phone] [facility], [address] [address], [place], [id number], [place] tel:[phone] [facility] Turner's esophagus with high grade dysplasiaHiata l herniaBarrett' s esophagus with high grade dysplasiaDiaph ragmatic hernia without obstruction or gangrene Sep 5 Abelardo Padilla. [address] [place] [address], [id number], [place]. tel:[phone] Referring Provider: Referral Self, USE FOR SELF REFERRALS. [facility], [address] [address], [place], [id number], [place] tel:[phone] [facility] No Information 5 Fausto Santiago. [address] [facility], [address], [place], [place], [id number], [place]. tel:[phone] Referring Provider: Referral Self, USE FOR SELF REFERRALS. [facility], [address] [address], [place], [place], [id number], [place] tel:[phone] [facility] No Information 5 Keren Cooper. [address] [facility], [address], [place], [place], [id number], [place]. tel:[phone] Referring Provider: Giovany HARRELL, [address] [facility] [address], [place], [address]. tel:[phone] Offic/outpt E&m Estab Moderate [facility], [address] [address], [place], [id number], [place] tel:[phone] [facility] GI Symptoms or Concerns (chief complaint) Turner's esophagus with high grade dysplasiaColon cancer screening declined 5 David Ball. [address] [facility], [facility] [address], [place], [id number], [place]. tel:[phone] Referring Provider: Referral Self, USE FOR SELF REFERRALS. [facility], [address] [address], [place], [id number], [place] tel:[phone] [facility] Turner's esophagus with high grade dysplasia 5 Karen Lama. [address] [facility], [address], [place], [place], [id number], [place]. tel:[phone] [facility], [address] [address], [place], [place], [id number], [place] tel:[phone] [facility] No Information 5 Karen Lama. [address] [facility], [address], [place], [place], [id number], [place]. tel:[phone] Referring Provider: Kelby Jones MD, [address] [facility] [address], [place], [address]. tel:[phone] Established Level 3 [facility], [address] [address], [place], [id number], [place] tel:[phone] [facility] GI Symptoms or Concerns (chief complaint) Pancreatic cystBarrett's esophagus with high grade dysplasia 5 Niki Palacios. [address] [facility], [facility] [address], [place], [id number], [place]. tel:[phone] Referring Provider: Herminia GORDON, [address] [facility] [address], [place], [address]. tel:[phone] [facility], [address] [address], [facility], [place], [id number], [place] tel:[phone] [facility] GI Symptoms or Concerns (chief complaint) No Information 5 Niki Palacios. [address] [facility], [facility] [address], [place], [id number], [place]. tel:[phone] Subsqt Hosp-da E&m Minr Compl [facility], [address] [address], [facility] [place], [id number], [place] tel:[phone] [facility] No Information 5 Alexandr Romero. [address] [facility], [facility] [address], [place], [id number], [place]. tel:[phone] Referring Provider: Tammy Carvalho, [address] [facility] [address], [place], [address]. tel:[phone] Subsqt Hosp-da E&m Minr Compl [facility], [address] [address], [place], [id number], [place] tel:[phone] [facility] No Information 5 Alexandr Romero. [address] [place] [address] [place] [address], [id number], [place]. tel:[phone] Referring Provider: Tammy Carvalho, [address] [place] [address], [address]. tel:[phone] [facility], [address] [address], [place], [id number], [place] tel:[phone] [facility] Pancreatic cyst 5 Decelsergio Hope. [address] [place] [address], [facility] [address], [place], [id number], [place]. tel:[phone] Init Inpt Cons New/est Mod-hi [facility], [address] [address], [place], [id number], [place] tel:[phone] [facility] No Information 5 Decelsergio Hope. [address] [place] [address], [id number], [place]. tel:[phone] Referring Provider: Heather Lundberg, [address] [place] [address], [address]. tel:[phone] [facility], [address] [address], [place], [id number], [place] tel:[phone] [facility] No Information Jun-0 3 Karen Lama. [address] [place] [address], [place], [id number], [place]. tel:[phone] Referring Provider: Kelby Jones MD, [address] [place] [address], [address]. tel:[phone] [facility], [address] [address], [place], [id number], [place] tel:[phone] [facility] Turner's esophagus with high grade dysplasia Oct-0 2- 3 Karen Lama. [address] [place] [address], [place], [id number], [place]. tel:[phone] [facility], [address] [address], [place], [id number], [place] tel:[phone] [facility] No Information 3 Karen Lama. [address] [facility], [facility] [address], [place], [place], [id number], [place]. [phone] [facility], [address] [address], [place], [id number], [place] tel:[phone] [facility] Pancreatic cyst 3 Alexandr Romreo. [address] [facility], [facility] [address], [place], [place], [id number], [place]. tel:[phone] Subsqt Hosp-da E&m Minr Compl [facility], [address] [address], [place], [id number], [place] tel:[phone] [facility] No Information 3 Donita Cody. [address] [facility], [facility] [address], [place], [place], [id number], [place]. tel:[phone] Referring Provider: Heather Lundberg, [address] [place] [address], [address]. tel:[phone] Subsqt Hosp-da E&m Minr Compl [facility], [address] [address], [place], [id number], [place] tel:[phone] [facility] No Information 3 Celeste Munoz. [address] [facility], [facility] [address], [place], [place], [id number], [place]. tel:[phone] Referring Provider: Heather Lundberg, [address] [place] [address], [place], [address]. tel:[phone] Init Inpt Cons New/est Mod-hi [facility], [address] [address], [place], [id number], [place] tel:[phone] [facility] No Information 3 Alexandr Romero. [address] [facility], [facility] [address], [place], [place], [id number], . tel:[phone] Referring Provider: Heather Lundberg, [address] [facility] [address], [place], [address]. tel:[phone] Family History Family Member Type Diagnosis Age At Onset Father Problem Cancer, prostate Mother Problem Cancer, ovarian Immunizations Vaccine Date Status Comments tetanus and diphtheria toxoi ds, adsorbed, preservative free, for adult use (5 Lf of tetanus toxoid and 2 Lf of diphtheria toxoid) administered Note: [facility] bi-direct ional interface ; Source: Other Registry Payers Payer name Insurance type Covered democrat ID Authoriza tion(s) [employer] CI [id number] Social History Type Description Quantity Date Captured Comments Sex Male Smoking Status No Information Chief Complaint And Reason For Visit No Information Reason For Referral Reason For Referral No Information Plan Of Treatment Date Type Action Status Appointment Brett Smalls BOOKED History Of Present Illness Encounter Date Complaint History Of Prese nt Illness GI Symptoms or Concerns This is a 54-year-old male who is seen as an established patient in esophageal specialty follow-up today regarding Turner's esophagus.In review, he has history of alcohol related pancreatitis and initially underwent EUS evaluation on 06/11/2023. This demonstrated endoscopic evidence short segment Turner's esophagus, with distal esophageal biopsy confirming Turner's mucosa with high-grade dysplasia. Esophageal specialty follow-up recommended at that time, this was not completed.More recently, he was admitted in 12/2024 for abdominal pain secondary to acute alcohol related pancreatitis. He again underwent follow-up EGD with EUS on 02/19/2025. This again revealed endoscopic findings of short segment Turner's with 3 tongues of salmon-colored mucosa present from 34-38 cm. 37 cm biopsy again demonstrated Turner's mucosa with high-grade dysplasia. Esophageal biopsies at 35 and 36 cm demonstrated chronic esophagitis as well as nondysplastic Turner's metaplasia. Brett reports longstanding history of gastroesophageal reflux symptoms including heartburn and regurgitation. He has remained on omeprazole 20 mg daily for greater than 10 years, and with this he states he is asymptomatic. Following most recent EGD in February, omeprazole increased to 40 mg daily. He denies recent heartburn, regurgitation, dysphagia, appetite change, unintentional weight loss, melena, hematochezia, other new symptoms.Brett endorses long history of tobacco use, smoking 6-7 cigars daily. He reports prior history of significant alcohol intake, 6 7 beers daily for many years. Since December 2024, he has been decreasing use and is now drinking a few beers several times weekly. He is working on continuing decreased consumption. Several years ago he states he was using NSAID medications on a daily basis though has discontinued all use over the past 2 years.No known family history of GI specific malignancies. He has not had prior colonoscopy. GI Symptoms or Concerns 54-year- old male with past medical history of alcohol use disorder, pancreatitis (2022), CCY and short segment Turner's esophagus with HGD who presents for follow-up after recent hospitalization. He consents to virtual visit and is accompanied by his today.He was recently admitted on 12/18/2024 for abdominal pain secondary to acute alcoholic pancreatitis. He had elevated lipase >1000 and MRCP with worsening acute interstitial pancreatitis and a 4.9 cm cystic lesion in the pancreatic neck (enlarged since 04/2023) and contains a nonenhancing nodular focus along the right lateral wall which is favored to represent a retractile clot or hemorrhagic/proteinaceous debris. Triglycerides were checked which were normal. He was treated supportively for the pancreatitis which resolved. It was recommended that he get an EUS in 4 weeks once the acute pancreatitis settled.He has a history of pancreatitis in 2022. 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 The cyst was sampled which showed no malignancy or mucin. Distal esophageal biopsies showed reflux esophagitis and Turner's mucosa with high-grade dysplasia. It was recommended he get treatment for this which was not completed.He is generally doing well. He is eating well and has no further abdominal pain. He had 1 week of gastritis/constipation after the hospitalization which resolved. He reports no alcohol intake. He requested an OV to discuss the recommendations for repeat EUS GI Symptoms or Concerns Functional Status Date Functional Assessmen t No Information Instructions Date Instruction Additional Infor pippa Hiatal Hernia Related to Hiata l hernia Assessments Type Assessment Date No Information Patient Care Teams Name Effective Dates (start - stop) Status Members No Information
--- OUTSIDE RECORDS SUMMARY | 2025-05-28 08:47 | XMS_ITS | Continuity of Care Document ---
Author Organization [facility] Address [address] [address] [place] [address] Phone Care Team Providers Care Hearing Stenographer Name Role Phone Randy Zhou MD Unavailable [...] Diagnoses Date Provider Providers Copied on Encounter [facility], [address] [address], [place], [id number], [place] tel:[phone] [facility] No Information 5 Abelardo Padilla. [address] [place] [address], [id number], [place]. tel:[phone] [facility], [address] [address], [place], [id number], [place] tel:[phone] [facility] Turner's esophagus with high grade dysplasiaHiata l herniaBarrett' s esophagus with high grade dysplasiaDiaph ragmatic hernia without obstruction or gangrene Sep 5 Abelardo Padilla. [address] [place] [address], [id number], [place]. tel:[phone] Referring Provider: Referral Self, USE FOR SELF REFERRALS. [facility], [address] [address], [place], [id number], [place] tel:[phone] [facility] No Information 5 Fausto Santiago. [address], [place], [place], [id number], [place]. tel:[phone] Referring Provider: Referral Self, USE FOR SELF REFERRALS. [facility], [address] [address], [place], [id number], [place] tel:[phone] [facility] No Information 5 Keren Cooper. [address], [place], [place], [id number], [place]. tel:[phone] Referring Provider: Giovany HARRELL, [address] [facility] [address], [address]. tel:[phone] Offic/outpt E&m Estab Moderate [facility], [address] [address], [place], [id number], [place] tel:[phone] [facility] GI Symptoms or Concerns (chief complaint) Turner's esophagus with high grade dysplasiaColon cancer screening declined 5 David Ball. [address], [facility] [address], [place], [id number], [place]. tel:[phone] Referring Provider: Referral Self, USE FOR SELF REFERRALS. [facility], [address] [address], [place], [id number], [place] tel:[phone] [facility] Turner's esophagus with high grade dysplasia 5 Karen Lama. [address], [place], [place], [id number], [place]. tel:[phone] [facility], [address] [address], [place], [id number], [place] tel:[phone] [facility] No Information 5 Karen Lama. [address], [place], [place], [id number], [place]. tel:[phone] Referring Provider: Kelby Jones MD, [address] [facility] [address], [address]. tel:[phone] Established Level 3 [facility], [address] [address], [place] [facility], [id number], [place] tel:[phone] [facility] GI Symptoms or Concerns (chief complaint) Pancreatic cystBarrett's esophagus with high grade dysplasia 5 Niki Palacios. [address], [facility] [address], [place], [id number], [place]. tel:[phone] Referring Provider: Herminia GORDON, [address] [facility] [address], [address]. tel:[phone] [facility], [address] [address], [facility] [place], [id number], [place] tel:[phone] [facility] GI Symptoms or Concerns (chief complaint) No Information 5 Niki Palacios. [address], [facility] [address], [place], [id number], [place]. tel:[phone] [facility]&m Minr Compl [facility], [address] [address], [facility] [place], [id number], [place] tel:[phone] [facility] No Information 5 Alexandr Romero. [address], [facility] [address], [place], [id number], [place]. tel:[phone] Referring Provider: Tammy Carvalho, [address] [facility] [address], [address]. tel:[phone] [facility] Minr Compl [facility], [address] [address], [facility] [place], [id number], [place] tel:[phone] [facility] No Information 5 Alexandr Romero. [address] [place] [address] [place] [address], [id number], [place]. tel:[phone] Referring Provider: Tammy Carvalho, [address] [place] [address], [address]. tel:[phone] [facility], [address] [address], [place], [id number], [place] tel:[phone] [facility] Pancreatic cyst 5 Decelsergio Hope. [address] [place] [address], [facility] [address], [place], [id number], [place]. tel:[phone] Init Inpt Cons New/est Mod-hi [facility], [address] [address], [place], [id number], [place] tel:[phone] [facility] No Information 5 Decelsergio Hope. [address] [place] [address], [id number], [place]. tel:[phone] Referring Provider: Heather Lundberg, [address] [place] [address], [address]. tel:[phone] [facility], [address] [address], [place], [id number], [place] tel:[phone] [facility] No Information Jun-0 3 Karen Lama. [address] [place] [address], [place], [id number], [place]. tel:[phone] Referring Provider: Kelby Jones MD, [address] [place] [address], [address]. tel:[phone] [facility], [address] [address], [place], [id number], [place] tel:[phone] [facility] Turner's esophagus with high grade dysplasia Oct-0 2- 3 Karen Lama. [address] [place] [address], [place], [id number], [place]. tel:[phone] [facility], [address] [address], [place], [id number], [place] tel:[phone] [facility] No Information 3 Karen Lama. [address] [facility] [address], [facility] [address], [place], [place], [id number], [place]. [phone] [facility], [address] [address], [place], [id number], [place] tel:[phone] [facility] Pancreatic cyst 3 Alexandr Romero. [address], [facility] [address], [place], [place], [id number], [place]. tel:[phone] [facility] Hosp-[facility] E&m Minr Compl [facility], [address] [address], [place], [id number], [place] tel:[phone] [facility] No Information 3 Donita Cody. [address], [facility] [address], [place], [place], [id number], [place]. tel:[phone] Referring Provider: Heather Lundberg, [address] [place] [address], [address]. tel:[phone] [facility] E&m Minr Compl [facility], [address] [address], [place], [id number], [place] tel:[phone] [facility] No Information 3 Celeste Munoz. [address], [facility] [address], [place], [place], [id number], [place]. tel:[phone] Referring Provider: Heather Lundberg, [address] [place] [address], [address]. tel:[phone] Init Inpt Cons New/est Mod-hi [facility], [address] [address], [place], [id number], [place] tel:[phone] [facility] No Information 3 Alexandr Romero. [address] [facility] [address], [facility] [address], [place], [place], [id number], . tel:[phone] Referring Provider: Heather Lundberg, [address] [facility] [address], [place], [address]. tel:[phone] Family History Family Member Type Diagnosis Age [...] democrat ID Authoriza tion(s) [employer] CI [id number] Social History Type Description Quantity Date Captured [...]
--- OUTSIDE RECORDS SUMMARY | 2025-06-02 00:57 | XMS_ITS | Clinical Summary ---
Author Organization [place] Address [address] [place] [address] Care Team Providers Care Tortilla Maker Name Role Phone Ida Burr MD Unavailable [phone] Ida Aquino BULK COOLERS INSTALLER Primary Care Provider [phone] Alea Taveras MD Unavailable [phone] Allergies Active Allergy Reactions Criticality Noted Date [...] Type Department Care Team Description 04/07/2025 Telephone [facility] [address] [place] [phone] Alea Taveras MD Follow Up 03/30/2025 9:13 AM CDT - 03/30/2025 5:16 PM CDT Hospital Encounter [facility] [address] [place] [phone] Non-Fv Credentialed Provider, Radiology Alea Taveras MD Intermittent claudication of both lower extremities due to atherosclerosis Discharge Disposition: Home or Self Care 03/30/[address] [facility] - [facility] [address] [place] [phone] Alea Taveras MD Intermittent claudication of both lower extremities due to atherosclerosis (Primary Dx) 03/30/[address] [facility] - [facility] [address] [place] [phone] Alea Taveras MD Intermittent claudication of both lower extremities due to atherosclerosis (Primary Dx) 03/24/2025 3:00 PM CDT Office Visit [facility] [address] [place] [phone] Alea Taveras MD PAD (peripheral artery disease); Claudication in peripheral vascular disease 03/24/2025 Telephone [facility] [address] [place] [phone] Alea Taveras MD Surgery Scheduling 03/24/[address] [facility] - [facility] [address] [place] [phone] Alea Taveras MD Intermittent claudication of both lower extremities due to atherosclerosis (Primary Dx) 03/24/[address] [facility] - [facility] [address] [place] [phone] Alea Taveras MD Intermittent claudication of both lower extremities due to atherosclerosis (Primary Dx) 03/24/2025 Telephone [facility] [address] [place] [phone] Nurse, [facility] Referral 03/23/2025 1:32 PM CDT - 03/23/2025 6:27 PM CDT Emergency [facility] [address] [place] [address] Buzz Armijo MD PAD (peripheral artery disease); [...] in an abandoned building, in an overnight intermediate, or couch-surfing.) Yes 12/18/2024 Are you worried [...] this topic Medical Devices Implanted Type Area Data Entry Supervisor Device Identifier Shelf Expiration Date Model / Serial / Lot Mesh Composite Parietene Ds [id number] - [id number] Implanted:Qty: 1 on 01/22/2025 by Ida Burr MD at [facility] Mesh N/A: Abdomen COVIDIEN 05/10/2027 [id number] / / [id number] Procedures Procedure Name Priority Date/Time Associated Diagnosis Comments IR LOWER EXTREMITY ANGIOGRAM BILATERAL Routine 03/30/2025 12:29 PM CDT Intermittent claudication of both lower extremities due to atherosclerosis MRA NECK (CAROTIDS) W/O & W CONTRAST STAT 03/23/2025 4:43 PM CDT MRA BRAIN ([place]OWER [place]) W/O CONTRAST STAT 03/23/2025 4:43 [...] lack of success). Surgeon: Alea Taveras M.D. Top Distribution Executive: Jeanie Acharya M.D. Sedation: Patient received 4.5 [...] inch wire platform and a short 5 Brazilian sheath was placed. Similarly ultrasound was used to locate the left common femoral artery. Images were stored. Local anesthetic was administered. The left common femoral artery was accessed in retrograde fashion with a micropuncture needle followed by placement of a microwire. This was then converted to a 0.035 inch wire platform and a short 5 Brazilian sheath was placed. From the left side [...] lack of success). Surgeon: Alea Taveras M.D. Top Distribution Executive: Jeanie Acharya M.D. Sedation: Patient received 4.5 [...] inch wire platform and a short 5 Brazilian sheath was placed. Similarly ultrasound was used to locate the left common femoral artery. Images were stored. Local anesthetic was administered. The left common femoral artery was accessed in retrograde fashion with a micropuncture needle followed by placement of a microwire. This was then converted to a 0.035 inch wire platform and a short 5 Brazilian sheath was placed. From the left side [...] (CAROTIDS) W/O and W CONTRAST, MRA BRAIN (LOWER [place]) W/O CONTRAST LOCATION: [facility] DATE: 03/23/2025 INDICATION: 3 days left upper extremity numbness, clumsiness, known vasculopath COMPARISON: None. CONTRAST: 10 ml Gadavist TECHNIQUE: 1) Routine multiplanar multisequence head MRI without and with intravenous contrast. 2) 3D jdlq-xn-htilfg head MRA without intravenous contrast. 3) Neck [...] aneurysm, or high flow vascular malformation. Standard [place] anatomy. POSTERIOR CIRCULATION: No stenosis/occlusion, [...] NECK (CAROTIDS) W/O and W CONTRAST,MRA BRAIN (LOWER [place]) W/O CONTRAST LOCATION: [facility] DATE: 03/23/2025 INDICATION: 3 days left upper extremity numbness, clumsiness, knownvasculopath COMPARISON: None. CONTRAST: 10 ml Gadavist TECHNIQUE: 1) Routine multiplanar multisequence head MRI without and with intravenouscontrast. 2) 3D tgth-xb-frtpgk head MRA without intravenous contrast. 3) Neck [...] stenosis/occlusion, aneurysm, or high flowvascular malformation. Standard [place] anatomy. POSTERIOR CIRCULATION: No stenosis/occlusion, [...] (CAROTIDS) W/O and W CONTRAST, MRA BRAIN ([place]OWER [place]) W/O CONTRAST LOCATION: [facility] DATE: 03/23/2025 INDICATION: 3 days left upper extremity numbness, clumsiness, known vasculopath COMPARISON: None. CONTRAST: 10 ml Gadavist TECHNIQUE: 1) Routine multiplanar multisequence head MRI without and with intravenous contrast. 2) 3D pwmw-jo-tjmmum head MRA without intravenous contrast. 3) Neck [...] aneurysm, or high flow vascular malformation. Standard [place] anatomy. POSTERIOR CIRCULATION: No stenosis/occlusion, [...] NECK (CAROTIDS) W/O and W CONTRAST,MRA BRAIN ([place]) W/O CONTRAST LOCATION: [facility] DATE: 03/23/2025 INDICATION: 3 days left upper extremity numbness, clumsiness, knownvasculopath COMPARISON: None. CONTRAST: 10 ml Gadavist TECHNIQUE: 1) Routine multiplanar multisequence head MRI without and with intravenouscontrast. 2) 3D znia-qw-tzlotn head MRA without intravenous contrast. 3) Neck [...] stenosis/occlusion, aneurysm, or high flowvascular malformation. Standard [place] anatomy. POSTERIOR CIRCULATION: No stenosis/occlusion, [...] (CAROTIDS) W/O and W CONTRAST, MRA BRAIN ([place]OWER [place]) W/O CONTRAST LOCATION: [facility] DATE: 03/23/2025 INDICATION: 3 days left upper extremity numbness, clumsiness, known vasculopath COMPARISON: None. CONTRAST: 10 ml Gadavist TECHNIQUE: 1) Routine multiplanar multisequence head MRI without and with intravenous contrast. 2) 3D pjgh-at-obzrfx head MRA without intravenous contrast. 3) Neck [...] aneurysm, or high flow vascular malformation. Standard [place] anatomy. POSTERIOR CIRCULATION: No stenosis/occlusion, [...] NECK (CAROTIDS) W/O and W CONTRAST,MRA BRAIN ([place]) W/O CONTRAST LOCATION: [facility] DATE: 03/23/2025 INDICATION: 3 days left upper extremity numbness, clumsiness, knownvasculopath COMPARISON: None. CONTRAST: 10 ml Gadavist TECHNIQUE: 1) Routine multiplanar multisequence head MRI without and with intravenouscontrast. 2) 3D znva-fq-zpnlrk head MRA without intravenous contrast. 3) Neck [...] stenosis/occlusion, aneurysm, or high flowvascular malformation. Standard [place] anatomy. POSTERIOR CIRCULATION: No stenosis/occlusion, [...] CTA ABDOMEN PELVIS RUNOFF W CONTRAST LOCATION: [facility] DATE: 03/23/2025 INDICATION: 2-3 months of worsening claudication symptoms, now with symptoms at rest, right worse than left. COMPARISON: CT from 12/20/2024. TECHNIQUE: Helical acquisition through the abdomen, pelvis, and bilateral lower extremities was performed during the arterial phase of contrast enhancement using IV contrast. 2D and 3D reconstructions were performed by the chief medical technologist. Dose reduction techniques were used. CONTRAST: [...] CTA ABDOMEN PELVIS RUNOFF W CONTRAST LOCATION: [facility] DATE: 03/23/2025 INDICATION: 2-3 months of worsening claudication symptoms, now withsymptoms at rest, right worse than left. COMPARISON: CT from 12/20/2024. TECHNIQUE: Helical acquisition through the abdomen, pelvis, and bilaterallower extremities was performed during the arterial phase of contrastenhancement using IV contrast. 2D and 3D reconstructions were performed bythe chief medical technologist. Dose reduction techniques were used. CONTRAST: [...] BEAKER POCT Final Result [facility] LABORATORY POC [facility] [address] [facility] Lab (1st floor, no room number) [place] [address], [facility] * Extra Red Top Tube (03/23/2025 2:22 PM CDT) Hold Specimen JIC 03/23/2025 3:31 PM CDT [facility] LABORATORY Blood STRUCTURE OF RIGHT UPPER LIMB / Unknown Venipuncture / Unknown 03/23/2025 2:22 PM CDT 03/23/2025 2:26 PM CDT Buzz Armijo MD LAB - BLOOD ORDERABLES Final Result LABORATORY [facility] [address] Lab (1st floor, no room number) [place] [phone] [place] [address] * Extra Blue Top Tube (03/23/2025 2:22 PM CDT) Hold Specimen JIC 03/23/2025 3:31 PM CDT [facility] LABORATORY Blood STRUCTURE OF RIGHT UPPER LIMB / Unknown Venipuncture / Unknown 03/23/2025 2:22 PM CDT 03/23/2025 2:26 PM CDT Buzz Armijo MD LAB - BLOOD ORDERABLES Final Result Performing Organization Address City/[facility]/ZIP Co de Phone Number LABORATORY [facility] [address] Lab (1st floor, no room number) [address] * (ABNORMAL) CBC with platelets and [...] - BLOOD ORDERABLES Final Result RH LABORATORY [facility] [address] Lab (1st floor, no room number) [place] [address] * Troponin T, High Sensitivity (03/23/2025 2:22 [...] MD LAB - BLOOD ORDERABLES Final Result [facility] [address] Lab (1st floor, no room number) [place] [address] * Phosphorus (03/23/2025 2:22 PM CDT) Pathologist [facility] Phosphorus 3.1 2.5 - 4.5 mg/dL 03/23/2025 2:56 PM CDT LABORATORY Blood STRUCTURE OF RIGHT UPPER LIMB / Unknown Venipuncture / Unknown 03/23/2025 2:22 PM CDT 03/23/2025 2:26 PM CDT Buzz Armijo MD LAB - BLOOD ORDERABLES Final Result [facility] [address] Lab (1st floor, no room number) [place] [address] * Magnesium (03/23/2025 2:22 PM CDT) Magnesium 2.1 1.7 - 2.3 mg/dL 03/23/2025 2:56 PM CDT LABORATORY Blood STRUCTURE OF RIGHT UPPER LIMB / Unknown Venipuncture / Unknown 03/23/2025 2:22 PM CDT 03/23/2025 2:26 PM CDT Buzz Armijo MD LAB - BLOOD ORDERABLES Final Result Performing Organization Address [facility]/ZIP Co de Phone Number [facility] [address] Lab (1st floor, no room number) [place] [phone] * Lipid panel reflex to direct LDL [...] - BLOOD ORDERABLES Final Result U LABORATORY [facility] Lab [address] [facility], [address] [place] [address] * (ABNORMAL) Basic metabolic panel (BMP) (03/23/2025 [...] LAB - BLOOD ORDERABLES Final Result LABORATORY [facility] [address] Lab (1st floor, no room number) [place] [address], [facility] * EKG 12-lead, tracing only (03/23/2025 1:26 PM CDT) Systolic Blood Pressure mmHg RADIOLOGY RESULTS Diastolic Blood Pressure mmHg RADIOLOGY RESULTS Ventricular Rate 108 BPM RAD IOLOGY RESULTS Atrial Rate 108 BPM RADIOLOG Y RESULTS MA Interval 146 ms RADIOLOG Y RESULTS QRS Duration 86 ms RADIOLO GY RESULTS QT 348 ms RADIOLOGY RESULTS QTc 466 ms RADIOLOGY RESULTS P Sanders 63 degrees RADIOLOGY RESULTS R AXIS 32 degrees RADIOLOGY RESULTS T Sanders 54 degrees RADIOLOGY RESULTS Interpretation ECG Sinus tachycardia Possible Left atrial enlargement Borderline ECG When compared with ECG of 18-Dec-2024 15:50, Previous ECG has undetermined rhythm, needs review Unconfirmed report - interpretation of this ECG is computer generated - see medical record for final interpretation Confirmed by - EMERGENCY ROOM, PHYSICIAN ([id number]), electronic news gathering editor Osman Reyes ([id number]) on 03/23/2025 2:00:19 PM RADIOLOGY RESULTS 03/23/2025 1:26 PM CDT 03/23/2025 2:00 PM CDT us Buzz Armijo MD ECG ORDERABLES Edited Result - Final RADIOLOGY RESULTS from Last 3 Months Insurance MEDICA CHOICE MEDICA CHOICE Advance Directives For more information, please contact: [phone] * Full Code (Latest Code Status on [...] patie nt/ legal decision maker Care Teams Tortilla Maker Relationship Specialty [place] [address] [place] [address] PCP - General Family Medicine 01/22/25 Ida Burr MD [address] [place] [address] Assigned Surgical Provider 12/31/24 Alea Taveras MD [address] [place] [address] Assigned Heart and Vascular Surgical Provider 04/01/25
--- OUTSIDE RECORDS SUMMARY | 2025-06-02 00:58 | XMS_ITS | Clinical Summary ---
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 [address] [facility] [address] [place] [address] Cardiology, Anw Appointment (EP TEAM) 05/13/2025 4:10 PM CDT Office Visit [facility] [address] [place] [address] Tammi Campos PA Blood Pressure 05/13/2025 Travel 04/30/2025 Orders Only [facility] [address] [place] [address] Tammi Campos PA 1 scan: (1-Ord) 04/29/2025 04/29/2025 10:55 AM CDT Office Visit [facility] [address] [place] [address] Tammi Campos PA Blood Pressure 04/29/2025 Travel 03/23/2025 12:00 PM CDT Office [place] [facility] [address] [place] [address] Clara Juarez MD Numbness 03/23/2025 Travel 03/20/2025 Orders Only [facility] [address] [place] [address] Lizzy Joiner PA <No scans attached> 03/19/2025 1:00 PM CDT Ancillary Procedure [facility] [address] [place] [address] 03/19/2025 Travel from Last 3 Months Immunizations [...] Relation Name Status Comments Father (Age 70) [place] Maternal Grandfather Maternal Grandmother Mother Paternal Grandfather [...] on file Legal Sex Male 7:11 AM LURE MAKER Gender Identity Not on file Sexual Orientation Not on file 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 Not on file Not on file Not [...] Care Team (Late st Contact Info) Description 06/05/2025 3:00 PM CDT [facility] [place] [facility] [address] [place] [address] [place] [address] [place] [address] 06/12/2025 3:50 PM CDT [facility] [place] [facility] [address] [place] [address] [place] [address] [facility]3][place] [address] 07/09/2025 3:00 PM CDT Office Visit [facility] [address] [facility] [address] [place] [phone] Shahram Larose MD [address] [place] [address] Health Maintenance Due Date Last [...] (1 of 2) 2021 COVID-19 vaccine series ( - season) 2025 Influenza Vaccine (#1) 2025 Tetanus [...] Zhou MD - 05/15/2025 1:37 PM CDT [facility] [address], [address] [place] [address] Patient Name: Brett Lea Gender: Male Exam Date: 05/15/2025 Visit Number: [id number] Age: 54 Years 9 Months : 1970 Attending MD: Randy Zhou MD Procedure: Upper GI Endoscopy Indications: Turner's, high-grade dysplasia Provider: Randy Zhou MD Referring MD: Referral Self Primary MD: Ida Aquino CALL CENTER PROFESSIONAL Medications: Admitting Medication: 0.9% Normal Saline at [...] every day smoker Race: White Preferred Language: Cambodian cc: Ida Aquino [facility] [phone] Randy Zhou MD OTHER Final Result * [...] 60 mL/min/1. 73m2 05/14/2025 6:18 AM CDT [facility] UREA NITROGEN (BUN) 13 7 - 25 mg/dL 05/14/2025 6:18 AM CDT [facility] ELECTROLYTE BALANCE 7 7 - 17 mmol/L (calc) 05/14/2025 6:18 AM CDT [facility] CHLORIDE 105 98 - 110 mmol/L 05/14/2025 6:18 AM CDT [facility] Blood BLOOD SPECIMEN / Unknown Non-Lab Venipuncture / Unknown 05/13/2025 4:45 PM CDT 05/13/2025 4:45 PM CDT Tammi GORDON CHEMISTRY Final Res ult [facility] [place] [address] [place] [address], * EKG 12 LEAD (04/29/2025 12:00 AM CDT) Tammi GORDON EKG ORD Final Res ult * US ARTERIAL LOWER EXTREMITY W LATRICE BILATERAL (03/19/2025 2:05 PM CDT) Anatomical Region Laterality Modality LEGS Ultrasound 03/19/2025 12:5 4 PM CDT Narrative 03/20/2025 3:02 PM CDT VASCULAR ULTRASOUND REPORT BRETT LEA : 1970 Study Date: 03/19/2025 12:54:36 PM Age: 54 years Tech: CHELY Gender: M Referring MD: LIZZY JOINER Site: [facility] Study performed: Lower extremity duplex US, [...] RIGHT Velocity cm/s Phasicity +--------+ + + TMD TEACHER PRX 47 monophasic +--------+ + + TMD TEACHER DST 42 monophasic +--------+ + + PFA 20 monophasic +--------+ + + SFA PRX 51 monophasic +--------+ + + SFA MID 54 monophasic +--------+ + + SFA DST 33 monophasic +--------+ + + JOCELIN PRX 21 monophasic +--------+ + + JOCELIN DST 24 monophasic +--------+ + + PRODUCE DEPARTMENT MANAGER DST 17 monophasic +--------+ + + DPA 18 monophasic +--------+ + + +--------+ + + LEFT Velocity cm/s Phasicity +--------+ + + TMD TEACHER PRX 74 monophasic +--------+ + + TMD TEACHER DST 44 monophasic +--------+ + + PFA 48 monophasic +--------+ + + SFA PRX 43 monophasic +--------+ + + SFA MID 50 monophasic +--------+ + + SFA DST 35 monophasic +--------+ + + JOCELIN PRX 20 monophasic +--------+ + + JOCELIN DST 25 monophasic +--------+ + + PRODUCE DEPARTMENT MANAGER DST 18 monophasic +--------+ + + DPA 17 monophasic +--------+ + + Criteria: Stenosis V. Ratio Mild <50% <2.0 Moderate 50-74% > or = 2.0 Severe 75-99% > or = 4.0 Occluded 100% no detectable flow Pressures +-----+ +--------+ +-----+ RIGHT (mmHg) LEFT (mmHg) +-----+ +--------+ +-----+ Index 158 Brachial 146 Index +-----+ +--------+ +-----+ 0.39 62 PRODUCE DEPARTMENT MANAGER 92 0.58 +-----+ +--------+ +-----+ 0.38 60 DPA 80 0.51 +-----+ +--------+ +-----+ 0.20 31 Digit 1 53 0.34 +-----+ +--------+ +-----+ Pippa Osorio MD. Electronically signed on 03/20/2025 3:02:10 PM This study was performed and interpreted by a service accredited by the Intersocietal Accreditation Commission (IAC/Vascular), [email or web address] Report generated by [employer]. Final Procedure Note Pippa Osorio MD - 03/20/2025 VASCULAR ULTRASOUND REPORT BRETT LEA : 1970 Study Date: 03/19/2025 12:54:36 PM Age: 54 years Tech: CHELY Gender: M Referring MD: LIZZY JOINER Site: [facility] Study performed: Lower extremity duplex US, [...] RIGHT Velocity cm/s Phasicity +--------+ + + TMD TEACHER PRX 47 monophasic +--------+ + + TMD TEACHER DST 42 monophasic +--------+ + + PFA 20 monophasic +--------+ + + SFA PRX 51 monophasic +--------+ + + SFA MID 54 monophasic +--------+ + + SFA DST 33 monophasic +--------+ + + JOCELIN PRX 21 monophasic +--------+ + + JOCELIN DST 24 monophasic +--------+ + + PRODUCE DEPARTMENT MANAGER DST 17 monophasic +--------+ + + DPA 18 monophasic +--------+ + + +--------+ + + LEFT Velocity cm/s Phasicity +--------+ + + TMD TEACHER PRX 74 monophasic +--------+ + + TMD TEACHER DST 44 monophasic +--------+ + + PFA 48 monophasic +--------+ + + SFA PRX 43 monophasic +--------+ + + SFA MID 50 monophasic +--------+ + + SFA DST 35 monophasic +--------+ + + JOCELIN PRX 20 monophasic +--------+ + + JOCELIN DST 25 monophasic +--------+ + + PRODUCE DEPARTMENT MANAGER DST 18 monophasic +--------+ + + DPA 17 monophasic +--------+ + + Criteria: Stenosis V. Ratio Mild <50% <2.0 Moderate 50-74% > or = 2.0 Severe 75-99% > or = 4.0 Occluded 100% no detectable flow Pressures +-----+ +--------+ +-----+ RIGHT (mmHg) LEFT (mmHg) +-----+ +--------+ +-----+ Index 158 Brachial 146 Index +-----+ +--------+ +-----+ 0.39 62 PRODUCE DEPARTMENT MANAGER 92 0.58 +-----+ +--------+ +-----+ 0.38 60 DPA 80 0.51 +-----+ +--------+ +-----+ 0.20 31 Digit 1 53 0.34 +-----+ +--------+ +-----+ Pippa Osorio MD. Electronically signed on 03/20/2025 3:02:10 PM This study was performed and interpreted by a service accredited by theIntersocietal Accreditation Commission (IAC/Vascular),[email or web address] Report generated by [employer]. Final us Lizzy Randle US Final Resu lt * (ABNORMAL) LIPID PANEL W REFLEX MEASURED LDL (02/22/2023 1:43 PM CDT) CHOLESTEROL,TOTAL 148 100 - 199 mg/dL 02/23/2023 12:40 AM CDT [facility] Comment: Cholesterol, Total Reference Ranges Desirable <200 mg/dL Borderline 200-239 mg/dL High >=240 mg/dL TRIGLYCERIDES 172(H) <150 mg/dL 02/23/2023 12:40 AM CDT [facility] HDL CHOLESTEROL 62 >40 mg/dL 12:40 AM CDT [facility] NON-HDL CHOLESTEROL 86 <145 mg/dl 02/23/2023 12:40 AM CDT [facility] CHOL/HDL RATIO 2.39 <4.50 02/23/2023 12:40 AM CDT [facility] LDL CHOLESTEROL 52 <=130 mg/dL 02/23/2023 12:40 AM CDT [facility] VLDL CHOLESTEROL 34(H) <=30 mg/dL 02/23/2023 12:40 AM CDT [facility] PROVIDER ORDERED STATUS RANDOM 02/23/2023 12:40 AM CDT [facility] Blood BLOOD SPECIMEN / Unknown Venipuncture / Unknown 02/22/2023 1:43 PM CDT 02/22/2023 1:43 PM CDT us Zoey GORDON CHEMISTRY Final Result [facility] [address] [place] [address], [place] from Last 3 Months or Most Recently Relevant to Health Maintenance Insurance [employer]ICA CHOICE Advance Directives * Full Code (Latest Code Status on File) Date Activated Date Inactivated Comments 03/20/2013 12:28 PM 03/21/2013 1:34 AM Care Teams Exhibit Artist Relationship Specialty [place] [address] [place] [address] PCP - General Nurse Practitioner 02/13/25
[2025-06-02 01:00] VITALS: BP 159/91; PULSE 89; RESP 18; TEMP 36.7; O2SAT 99; BMI 22.2
--- NOTE | 2025-06-02 01:17 | ED.GENADULT ---
HPI - General Adult General Chief complaint: Constipation Stated complaint: abdominal pain Time Seen by Provider: 06/02/25 01:00 History of Present Illness HPI narrative: CC: Constipation, Abdominal Pain pt. hasn't had a bowel in 6 days. tried over the counter meds with no relief. is passing a little bit of gas. denies n/ v, fevers. 54-year-old man presenting to the emergency department with concern of abdominal pain. Was admitted with alcoholic pancreatitis to this facility 6 days ago and discharged 2 days later. Was noted to have pancreatic cyst. 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 He has had increasing abdominal pain particularly over the last few days. He notes he has not had a decent bowel movement in 6 days. He does however describe some small amount of liquid stool. Spouse has been giving him small red pills as bowel aid ?you know the kind they give you with opiates when you discharge from the hospital?. He has not had any bowel movement yet today though so probably at least 30 hours. There was some question of C diff though was never tested for this thinks. He has not had a fever. No copious diarrhea. No hematochezia or melena described. Feels like he can not keep anything in. Has not been vomiting but has been nauseated. Water hurts his stomach. He says that this pain is not like the pancreatitis he experienced before. It is more generalized over the abdomen. Seems to hurt his abdomen to breathe. During hospitalization he does report receiving IV opiate and then to oxycodone; was not discharged with any pain medication he says when asked. Apparently did tolerate meal before departure. Still with some pain that he says was thought to be gas. He has not had any alcohol since before going into the hospital last time. Did have a cholecystectomy where a clip popped off and ultimately required laparotomy for clean out. Has also had a number of hernia repairs he reports. Imaging from 05/27/2025 INDICATION: Upper abdominal pain. TECHNIQUE: CT abdomen and pelvis acquired with 77 cc Isovue 370 IV contrast. COMPARISON: None. FINDINGS: Lower chest: Unremarkable. Liver: Unremarkable. Normal in size and attenuation. No suspicious masses. Gallbladder and bile ducts: Prior cholecystectomy. Pancreas: Multifocal pancreatic head cystic lesions, measuring 2.6 centimeters and 1.6 centimeters. Subtle peripancreatic head inflammation. Spleen: Unremarkable. Normal in size. No masses. Adrenal glands: Unremarkable. No nodules. Kidneys: Tiny nonobstructing right renal stone.. No suspicious masses, stones, or hydronephrosis. GI tract: Mild gastric antral/proximal duodenal wall thickening.. Normal in caliber. No sign of mass or inflammation. Normal appendix. Vasculature: Aortoiliac arterial calcifications. Abdominal aorta is normal in caliber. Mesenteric arteries are patent. Lymph nodes: No lymphadenopathy. Peritoneum/Abdominal Wall: Unremarkable. No sign of mass or infiltration. No free air or significant free fluid. Pelvis: Unremarkable. Bones: Age-indeterminate moderate L1 compression fracture. IMPRESSION: Subtle peripancreatic head inflammation, possibly mild acute uncomplicated pancreatitis in the appropriate clinical setting. Recommend correlation with lipase. Additional 2.6 centimeter and 1.6 centimeter pancreatic head cystic lesions, likely pseudocysts in this patient with history of pancreatitis. Mild gastric antral/proximal duodenal wall thickening, likely reactive. Primary gastritis/duodenitis could have a similar appearance and should be clinically excluded. No drainable fluid collections or free intraperitoneal air. Age-indeterminate moderate L1 compression fracture. Recommend correlation with point tenderness. Please note that all CT scans at this facility use dose modulation, iterative reconstruction, and/or weight-based dosing when appropriate to reduce radiation dose to as low as reasonably achievable. Dictated by Shahram Bermeo MD @ 05/27/2025 9:10:43 PM Related Data Home Medications ?Medication ?Instructions ?Recorded ?Confirmed aspirin 325 mg capsule 325 mg PO DAILY 05/27/25 06/02/25 omeprazole 40 mg capsule,delayed 40 mg PO DAILY 05/27/25 06/02/25 release losartan 100 mg tablet 100 mg PO DAILY 05/28/25 06/02/25 metoprolol succinate 50 mg 50 mg PO DAILY 05/28/25 06/02/25 tablet,extended release 24 hr atorvastatin 40 mg tablet 40 mg PO DAILY 06/02/25 06/02/25 Previous Rx's ?Medication ?Instructions ?Recorded famotidine 20 mg tablet 20 mg PO QHS #30 tabs 05/29/25 Allergies Allergy/AdvReac Type Severity Reaction Status Date / Time meperidine (From Demerol) Allergy Severe Seizure Verified 06/02/25 01:03 Review of Systems Status of ROS: Reports: 6 or more systems reviewed and unremarkable except as noted in History and below [facility] Medical History Pancreatic cyst ?K86.2 - Cyst of pancreas (ICD-10) Hyperlipidemia ?E78.5 - Hyperlipidemia, unspecified (ICD-10) Tobacco use ?Z72.0 - Tobacco use (ICD-10) Migraine ?G43.909 - Migraine, unspecified, not intractable, without status migrainosus (ICD-10) History of gastric ulcer ?Z87.11 - Personal history of peptic ulcer disease (ICD-10) Alcoholic pancreatitis ?K85.20 - Alcohol induced acute pancreatitis without necrosis or infection (ICD-10) Turner's esophagus without dysplasia ?K22.70 - Truner's esophagus without dysplasia (ICD-10) Hypertension ?I10 - Essential (primary) hypertension (ICD-10) WPW (Bphxy-Iynjvebsj-Ascyq syndrome) ?I45.6 - Pre-excitation syndrome (ICD-10) Social History What is your current living situation?: I presently have a place to live Problems where you live: no known problems In the past 12 months, utilities in danger of being shut off: no In past 12 months, lack of transportation kept you from medical appts, meetings, work, or getting things needed for daily living: no In the past 12 mos, have been you worried that your food would run out before you had money to buy more?: never true In the past 12 mos, the food you bought just didn't last and you didn't have money to buy more?: never true Highest level of school completed/degree received: GED or equivalent Smoking Status: Smoker, status unknown Do you use any of these nicotine containing products: None Nicotine containing products detail: 5-6 cigars a day How often do you have a drink containing alcohol: 4 or more times a week How many standard drinks containing alcohol do you have on a typical day: 5 or 6 How often do you have six or more drinks on one occasion: Daily or almost daily AUDIT-C Alcohol total score: 10 Non-prescribed substance use: denies use Caffeine: Yes How often does anyone, including family, friends and others, physically hurt you: never How often does anyone, including family, friends and others, insult or talk down to you: never How often does anyone, including family, friends and others, threaten you with harm: never How often does anyone, including family, friends and others, scream or curse at you: never service: No Exam Narrative: Exam Narrative: Pleasant. Gravelly voice. Appears quite uncomfortable. Is splinting a little bit with breathing. Seated stiffly holding his arms at his side propping himself up. Lungs are clear. Heart in regular rate and rhythm without murmur or gallop. Abdomen with present bowel sounds is with a large midline surgical scar along with various trocar sites. Abdomen is soft and not tender across the lower half of the abdomen. He is however quite tender to palpation across the upper abdomen particularly midline and to the left a little bit. Extremities are well perfused. Is without edema. Const: Vital Signs, click to edit/add: Vital Signs - 24 hr 06/02/25 01:00 06/02/25 02:46 Temperature 98.1 F 98.3 F Pulse Rate [Right Pulse Oximeter] 89 93 Respiratory Rate 18 19 Blood Pressure [Ri ght Upper Arm] 159/91 H 141/87 H Pulse Oximetry 99 97 Oxygen Delivery Me thod Room Air Room Air Documenting provider has reviewed patient's vital signs: yes Course Vital Signs Vital signs: Initial Vital Signs Temperature 98.1 F 06/02/25 01:00 Temperature Source Temporal Artery Scan 06/02/25 01:00 Pulse Rate 89 06/02/25 01:00 Respiratory Rate 18 06/02/25 01:00 Blood Pressure 159/91 H 06/02/25 01:00 Blood Pressure Mean 113 H 06/02/25 01:00 Blood Pressure Position Sitting 06/02/25 01:00 Pulse Oximetry 99 06/02/25 01:00 Oxygen Delivery Method Room Air 06/02/25 01:00 Vital Signs Temperature 98.1 F 06/02/25 01:00 Pulse Rate 89 06/02/25 01:00 Respiratory Rate 18 06/02/25 01:00 Blood Pressure 159/91 H 06/02/25 01:00 Pulse Oximetry 99 06/02/25 01:00 Oxygen Delivery Method Room Air 06/02/25 01:00 Temperature 98.3 F 06/02/25 02:46 Pulse Rate 93 06/02/25 02:46 Respiratory Rate 19 06/02/25 02:46 Blood Pressure 141/87 H 06/02/25 02:46 Pulse Oximetry 97 06/02/25 02:46 Oxygen Delivery Method Room Air 06/02/25 02:46 Medications Administered Medications: Generic Name Dose Route Start Last Admin Trade Name Elle PRN Reason Stop Dose Admin Lactated Ringer's 1,000 mls @ 1,000 mls/hr 06/02/25 02:59 06/02/25 03:11 Lactated Ringers 1000 Ml IV 06/02/25 03:58 1,000 mls/hr .Q1H ONE Administration Discontinued Medications Generic Name Dose Route Start Last Admin Trade Name Elle PRN Reason Stop Dose Admin Diazepam 5 mg 06/02/25 01:29 06/02/25 01:55 Diazepam 5 Mg/Ml Inj IV 06/02/25 01:30 5 mg ONCE ONE Administration Hydromorphone HCl 0.5 mg 06/02/25 01:29 06/02/25 01:51 Hydromorphone 0.5 Mg/0.5 Ml Inj IVP 06/02/25 01:30 0.5 mg ONCE ONE Administration Hydromorphone HCl 0.5 mg 06/02/25 02:32 06/02/25 02:37 Hydromorphone 0.5 Mg/0.5 Ml Inj IVP 06/02/25 02:33 0.5 mg ONCE ONE Administration Sodium Chloride 1,000 mls @ 1,000 mls/hr 06/02/25 01:29 06/02/25 02:34 0.9 % Sodium Chloride 1000 Ml IV 06/02/25 02:28 Infused .Q1H ONE Infusion Ondansetron HCl 4 mg 06/02/25 01:29 06/02/25 01:49 Ondansetron 2 Mg/Ml Inj IVP 06/02/25 01:30 4 mg ONCE ONE Administration Medical Decision Making MDM Narrative Medical decision making narrative: Certainly might be experiencing some bypass with stooling. He does not feel though as if he has got a ball of stool to pass. The liquid stool he is experiencing might also be related to continued pancreatitis and alcohol use. Doubtful C diff. considering recent oral opiate could be a set up for constipation. History of surgeries and likely scar tissue might contribute to evolution of small-bowel obstruction. Area of pain suggests persistent pancreatitis. Gastritis? Diverticulitis? Initiated on IV fluids and given Dilaudid and Zofran. Noted then history of WPW. Flat and upright x-ray of the abdomen independently reviewed by me does not look to have excessive stool; frankly minimal. Unremarkable bowel gas pattern. Maybe some indication of a little ileus. Was improved temporarily with initial dosing of pain medication but pain escalated again pending results of lipase. Given another dose of Dilaudid. LDH at 142. Lipase returned then at 1063; did get a little over 1800 during last hospitalization. Normal CBC and transaminases today. I do not think that imaging is necessarily warranted today without much more significant increase in lipase and with normal white count. Reviewing again symptoms he just says that he has not felt that he has been much better at all since leaving the hospital. Persistent pain he notes and inability to tolerate significant oral intake. Mr. Smalls and spouse are skeptical that simply being more aggressive with pain management outpatient would be helpful. Appears to be failing or at least not thriving outpatient. Would consider for admission for further bowel rest, IV hydration and pain management. I have called to hospitalist to consider for admission. Medical Records Medical records reviewed: Yes I reviewed the patient's medical records Lab Data Lab results reviewed: Yes I reviewed the patient's lab results Labs: Lab Results 06/02/25 06/02/25 06/02/25 Range/Units 01:45 02:13 02:59 WBC 10.46 (4.50-11.00) K/uL RBC 4.43 (4.30-5.90) m/uL Hgb 14.8 (13.5-17.5) gm/dL Hct 43.8 (37.0-53.0) % MCV 99 (80-100) fL MCH 33 (26-34) pg MCHC 34 (32-36) gm/dL RDW Coeff of Tereso 12.5 (11.5-15.5) % Plt Count 323 (140-440) K/uL Neut % (Auto) 59.4 (42.0-72.0) % Lymph % (Auto) 24.7 (20-44) % Charles % (Auto) 12.1 H (0.0-11.0) % Eos % (Auto) 3.2 (0.0-7.0) % Baso % (Auto) 0.3 (0.0-3.0) % Neut # (Auto) 6.22 (1.7-7.0) K/uL Lymph # (Auto) 2.58 (0.90-2.90) K/uL Charles # (Auto) 1.30 H (0.00-0.90) K/UL Eos # (Auto) 0.33 (0.00-0.50) K/uL Baso # (Auto) 0.03 (0.00-0.30) K/uL Abs Immat Gran (auto) 0.03 (0.00-0.30) K/uL Imm/Tot Granulo (auto) 0.3 % Sodium 137 (135-149) mmol/L Potassium 3.6 (3.6-5.1) mmol/L Chloride 107 (96-114) mmol/L Carbon Dioxide 27 (20-32) mmol/L Anion Gap 3 L (7-15) mEq/L BUN 6 L (7-30) mg/dL Creatinine 0.7 (0.5-1.5) mg/dL Estimated Creat Clear 121.36 Estimated GFR 110 ml/min Glucose 114 (60-115) mg/dL Calcium 8.3 L (8.4-10.6) mg/dL Total Bilirubin 0.7 (0.1-1.5) mg/dL Direct Bilirubin 0.2 (0.0-0.5) mg/dL AST 19 (12-35) U/L ALT 17 (4-50) U/L Alkaline Phosphatase 68 (40-150) U/L Lactate Dehydrogenase 142 (120-246) U/L C-Reactive Protein 0.8 (0.5-1.0) mg/dL Total Protein 5.6 L (6.0-8.3) g/dL Albumin 3.2 L (3.3-5.0) g/dL Lipase 1063 H (23-300) U/L Ethyl Alcohol < 0.01 (0.01-0.03) % Lab Acknowledgement Test Added Test Added Discharge Plan Discharge Clinical Impression: Abdominal pain, Pancreatitis Patient Disposition: Admitted As Inpatient Condition: Stable
--- NOTE | 2025-06-02 01:29 | CRLHL7_ITS ---
For Patients: As a result of the Century Cures Act, medical imaging exams and procedure reports are released immediately into your electronic medical record. You may view this report before your referring provider. If you have questions, please contact your health care provider. INDICATION: Constipation on going 6 days, history of pancreatitis, constipation vs bowel obstruction, history of of pancreatitis TECHNIQUE: Abdomen Pelvis radiograph 2 views on 4 films COMPARISON: 05/27/2015 FINDINGS: Bowel: The bowel gas pattern is normal without evidence of bowel obstruction. No significant colonic stool is seen. Soft tissue: No evidence of pneumoperitoneum present. No suspicious calcifications noted. Surgical clips are noted in the right upper quadrant from prior cholecystectomy. Bone: Unremarkable for age. IMPRESSION: 1. Unremarkable appearance of the visualized abdomen. Dictated by: Omar Lawler MD @ 06/02/2025 01:45:27 (Electronically Signed)
[2025-06-02] MEDS: ONDANSETRON 2 MG/ML inj 4 MG IVP (01:49)
[2025-06-02 01:52] LABS: Hematocrit* 43.8 % (37.0-53.0); Hemoglobin* 14.8 gm/dL (13.5-17.5); Immature Granulocytes Abs Auto 0.03 K/uL (0.00-0.30); Immature Granulocytes Pct Auto 0.3 %; Lymphocytes Absolute Auto 2.58 K/uL (0.90-2.90); Mean Corpuscular HGB Conc 34 gm/dL (32-36); Mean Corpuscular Hemoglobin 33 pg (26-34); Mean Corpuscular Volume 99 fL (80-100); RDW Coefficient of Variation % 12.5 % (11.5-15.5); Red Blood Count* 4.43 m/uL (4.30-5.90); White Blood Count* 10.46 K/uL (4.50-11.00)
[2025-06-02] MEDS: diazePAM 5 MG/ML inj IV (01:55)
[2025-06-02 02:03] LABS: Slide Review Reflex No
[2025-06-02 02:32] LABS: Albumin* 3.2 g/dL (3.3-5.0); Chloride* 107 mmol/L (96-114); Sodium* 137 mmol/L (135-149)
[2025-06-02 02:33] LABS: Potassium* 3.6 mmol/L (3.6-5.1)
[2025-06-02 02:35] LABS: Blood Urea Nitrogen* 6 mg/dL (7-30); Creatinine* 0.7 mg/dL (0.5-1.5); Est. Creatinine Clearance* 121.36; Estimated Glomerular Filt Rate 110 ml/min
[2025-06-02 02:36] LABS: Alanine Aminotransferase* 17 U/L (4-50); Alkaline Phosphatase* 68 U/L (40-150); Anion Gap 3 mEq/L (7-15); Aspartate Amino Transferase* 19 U/L (12-35); Bilirubin Direct* 0.2 mg/dL (0.0-0.5); Bilirubin Total* 0.7 mg/dL (0.1-1.5); Calcium* 8.3 mg/dL (8.4-10.6); Carbon Dioxide* 27 mmol/L (20-32); Glucose* 114 mg/dL (60-115); Total Protein* 5.6 g/dL (6.0-8.3)
[2025-06-02 02:46] VITALS: BP 141/87; PULSE 93; RESP 19; TEMP 36.8; O2SAT 97
[2025-06-02] MEDS: LACTATED RINGERS 1000 ML 1,000 ML IV (03:11)
[2025-06-02 03:21] LABS: Ethanol* < 0.01 % (0.01-0.03)
--- NOTE | 2025-06-02 03:39 | W.PM.TELEH&P ---
Telehealth- H&P: HPI History of Present Illness Date Seen: 06/02/25 Chief complaint: abdominal pain Narrative: Brett Smalls is seen as an Interactive Telehealth visit. Brett Smalls is a 54 year old male who has history of WPW s/p ablation, alcohol abuse with recurrent alcohol-induced pancreatitis, hypertension, history of peptic ulcer disease who presents with persistent abdominal pain. Patient was admitted 05/27 to 05/29 for pancreatitis as well. Patient states that his pain has been persistent since discharge, progressing to the point where he came in again today. He denies nausea and vomiting, but endorses diarrhea. CT scan last admission showed inflammation of the head of the pancreas with presence of pseudocysts. His lipase is elevated at about 1000, which is about where it was when he was discharged. Patient does not have leukocytosis, no fever. Patient denies any nausea vomiting, no diarrhea. With persistent pain, patient will be admitted for management of pancreatitis that has persisted since last admission. Of note, alcohol level is 0, patient states he has not drank in about a week. Patient denies any history of withdrawal, denies history of seizures. Review of Systems Status of ROS: Reports: 10 or more systems reviewed and unremarkable except as noted in History and below [facility] Medical History Pancreatic cyst ?K86.2 - Cyst of pancreas (ICD-10) Hyperlipidemia ?E78.5 - Hyperlipidemia, unspecified (ICD-10) Tobacco use ?Z72.0 - Tobacco use (ICD-10) Migraine ?G43.909 - Migraine, unspecified, not intractable, without status migrainosus (ICD-10) History of gastric ulcer ?Z87.11 - Personal history of peptic ulcer disease (ICD-10) Alcoholic pancreatitis ?K85.20 - Alcohol induced acute pancreatitis without necrosis or infection (ICD-10) Turner's esophagus without dysplasia ?K22.70 - Turner's esophagus without dysplasia (ICD-10) Hypertension ?I10 - Essential (primary) hypertension (ICD-10) WPW (Cuhhq-Triazkrvw-Wbwey syndrome) ?I45.6 - Pre-excitation syndrome (ICD-10) Social History What is your current living situation?: I presently have a place to live Problems where you live: no known problems In the past 12 months, utilities in danger of being shut off: no In past 12 months, lack of transportation kept you from medical appts, meetings, work, or getting things needed for daily living: no In the past 12 mos, have been you worried that your food would run out before you had money to buy more?: never true In the past 12 mos, the food you bought just didn't last and you didn't have money to buy more?: never true Highest level of school completed/degree received: GED or equivalent Smoking Status: Smoker, status unknown Do you use any of these nicotine containing products: None Nicotine containing products detail: 5-6 cigars a day How often do you have a drink containing alcohol: 4 or more times a week How many standard drinks containing alcohol do you have on a typical day: 5 or 6 How often do you have six or more drinks on one occasion: Daily or almost daily AUDIT-C Alcohol total score: 10 Non-prescribed substance use: denies use Caffeine: Yes How often does anyone, including family, friends and others, physically hurt you: never How often does anyone, including family, friends and others, insult or talk down to you: never How often does anyone, including family, friends and others, threaten you with harm: never How often does anyone, including family, friends and others, scream or curse at you: never service: No Meds Home Medications and Allergies Home Medications ?Medication ?Instructions ?Recorded ?Confirmed ?Type aspirin 325 mg capsule 325 mg PO DAILY 05/27/25 06/02/25 History omeprazole 40 mg capsule,delayed 40 mg PO DAILY 05/27/25 06/02/25 History release losartan 100 mg tablet 100 mg PO DAILY 05/28/25 06/02/25 History metoprolol succinate 50 mg 50 mg PO DAILY 05/28/25 06/02/25 History tablet,extended release 24 hr famotidine 20 mg tablet 20 mg PO QHS #30 tabs 05/29/25 06/02/25 Rx atorvastatin 40 mg tablet 40 mg PO DAILY 06/02/25 06/02/25 History Allergies Allergy/AdvReac Type Severity Reaction Status Date / Time meperidine (From Demerol) Allergy Severe Seizure Verified 06/02/25 01:03 Exam Narrative Exam Narrative: Physical Exam GENERAL: ?vital signs reviewed, well developed and nourished, in no distress HEENT: pupils are equal round and reactive to light, extraocular movements are grossly within normal limits and oral mucosa is moist. NECK: Supple without lymphadenopathy or thyromegaly according to nursing staff examination observation HEART: Regular rate and rhythm without any rubs, murmurs, or gallops. LUNGS: Clear to auscultation bilaterally with good air movement throughout ABDOMEN: Observation from nurse assisted exam, abdomen appears soft, slightly tender to palpation diffusely. EXTREMITIES: Strength and sensation is observed to be grossly within normal limits in the upper and lower extremities.? No focal strength deficit is observed. SKIN:? Observed warm and dry with color normal Const Vital Signs, click to edit/add: Vital Signs - 24 hr 06/02/25 01:00 06/02/25 02:46 Temperature 98.1 F 98.3 F Pulse Rate [Right Pulse Oximeter] 89 93 Respiratory Rate 18 19 Blood Pressure [Right Upper Arm] 159/91 H 141/87 H Pulse Oximetry 99 97 Oxygen Delivery Method Room Air Room Air Hospitalist - H&P: Result Labs Labs: Short CBC 06/02/25 Range/Units 01:45 WBC 10.46 (4.50-11.00) K/uL Hgb 14.8 (13.5-17.5) gm/dL Hct 43.8 (37.0-53.0) % Plt Count 323 (140-440) K/uL BMP 06/02/25 01:45 Sodium 137 Potassium 3.6 Chloride 107 Carbon Dioxide 27 BUN 6 L Creatinine 0.7 Glucose 114 Calcium 8.3 L Liver Function 06/02/25 Range/Units 01:45 Total Bilirubin 0.7 (0.1-1.5) mg/dL Direct Bilirubin 0.2 (0.0-0.5) mg/dL AST 19 (12-35) U/L ALT 17 (4-50) U/L Alkaline Phosphatase 68 (40-150) U/L Albumin 3.2 L (3.3-5.0) g/dL Assessment and Plan Assessment and plan (1) Alcoholic pancreatitis: Problem comment: -acute on chronic, recurrent, 3rd episode -CT shows Subtle peripancreatic head inflammation, possibly mild acute uncomplicated pancreatitis -lipase 1833 on admission and down to 1000 on 05/28/2025 -IVF, NPO, pain and nausea management has helped. On 05/28/2025 advance to clear liquids and decrease IV fluid rate. -consider General surgery consult if new or worsening symptoms or no resolve -increased activity while in hospital Status: Acute (2) Abdominal pain: Status: Acute (3) Alcohol use disorder: Problem comment: - ordinarily drinks 4-6 cans of beer every night after he returns from work - 05/28/2025: Patient more resolved about not drinking alcohol hereafter Status: Acute (4) Pancreatic cyst: Problem comment: -history of per EMR -CT shows 2.6 centimeter and 1.6 centimeter pancreatic head cystic lesions, likely pseudocysts in this patient with history of pancreatitis Status: Acute (5) Hyperlipidemia: Problem comment: -continue statin Status: Acute (6) History of gastric ulcer: Status: Acute (7) Hypertension: Problem comment: -continue amlodipine, losartan, metoprolol Status: Acute (8) WPW (Vmalt-Xqmvynyft-Sspld syndrome): Problem 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 CT scan was not repeated this admission, but can be considered if patient's pain continues without signs of improvement. There is presence of pseudocyst, however no evidence of infection, no white count, no fever. Empiric antibiotics not indicated currently. There is no signs of alcohol withdrawal. We will continue bowel rest with n.p.o. status, antiemetics as needed, analgesics as needed. Telehealth: Statement Statement Telehealth Visit: Today's History and Physical is provided via interactive telehealth by Radha Fowler MD.? Patient is located at [facility].? Provider is located at [facility].? Nursing staff assisted with the patient's exam. The visit being done today meets criteria for a telehealth visit and the patient or patient?s parent/guardian is aware the visit is a telehealth visit. Camera Start Time: 04:25 Camera End Time: 04:35
[2025-06-02 04:05] VITALS: BP 142/93; PULSE 91; RESP 16; TEMP 36.8; O2SAT 98
[2025-06-02] MEDS: PANTOPRAZOLE SODIUM 40 MG INJ IVP (05:06)
[2025-06-02 06:38] LABS: Hematocrit* 37.0 % (37.0-53.0); Hemoglobin* 12.4 gm/dL (13.5-17.5); Immature Granulocytes Abs Auto 0.02 K/uL (0.00-0.30); Immature Granulocytes Pct Auto 0.2 %; Lymphocytes Absolute Auto 2.35 K/uL (0.90-2.90); Mean Corpuscular HGB Conc 34 gm/dL (32-36); Mean Corpuscular Hemoglobin 34 pg (26-34); Mean Corpuscular Volume 101 fL (80-100); RDW Coefficient of Variation % 12.5 % (11.5-15.5); Red Blood Count* 3.68 m/uL (4.30-5.90); White Blood Count* 8.10 K/uL (4.50-11.00)
[2025-06-02 06:45] LABS: Slide Review Reflex No
[2025-06-02 06:54] LABS: Chloride* 107 mmol/L (96-114)
[2025-06-02 06:55] LABS: Albumin* 3.1 g/dL (3.3-5.0); Potassium* 3.7 mmol/L (3.6-5.1); Sodium* 137 mmol/L (135-149)
[2025-06-02 06:57] LABS: Blood Urea Nitrogen* 5 mg/dL (7-30); Creatinine* 0.7 mg/dL (0.5-1.5); Est. Creatinine Clearance* 124.93; Estimated Glomerular Filt Rate 110 ml/min
[2025-06-02 06:58] LABS: Alanine Aminotransferase* 17 U/L (4-50); Alkaline Phosphatase* 66 U/L (40-150); Anion Gap 2 mEq/L (7-15); Aspartate Amino Transferase* 22 U/L (12-35); Bilirubin Total* 0.7 mg/dL (0.1-1.5); Calcium* 8.8 mg/dL (8.4-10.6); Carbon Dioxide* 28 mmol/L (20-32); Glucose* 106 mg/dL (60-115); Total Protein* 5.8 g/dL (6.0-8.3)
--- NOTE | 2025-06-02 09:39 | NUTR.NU ---
RDN with MD consult for diet education related to pancreatitis. Patient admitted with abdominal pain, noted to have pancreatitis. History of alcohol abuse with recurrent alcohol-induced pancreatitis. Current weight 159lb 9oz; height 5ft 10in; BMI 22.9 kg/m2. Weight history is stable. Current diet order is full liquids. No intakes recorded yet. He was hospitalized from 05/27 to 05/29 for pancreatitis. Visited with patient whom reports eating his normal diet once he was discharged from the hospital. He reports having [employer] and hamburger and chips for meals this weekend. RDN with MD nutrition consult for pancreatitis. Patient agreed to receive diet education related to pancreatitis. Patient was provided diet education on a low fat diet. Discussed foods to include and foods to avoid. Recommended avoiding high fat foods (3g or more fat) for the next 1-2 weeks. Education also provided following a low fat diet (about 60 grams/day) long-term. Verbal and written information as well as a sample menu provided from [facility]. Patient verbalized understanding. RDN's contact information was provided and patient was encouraged to contact RDN with questions.
[2025-06-02] MEDS: LOSARTAN POTASSIUM 50 MG TABLET 100 MG PO (09:47)
[2025-06-02] MEDS: ATORVASTATIN CALCIUM 40 MG TABLET PO (09:47)
[2025-06-02] MEDS: OMEPRAZOLE 20 MG CAPSULE DR PO (09:47)
[2025-06-02] MEDS: METOPROLOL SUCCINATE (XL) 50 MG TAB PO (09:47)
[2025-06-02 11:36] VITALS: BP 157/100; PULSE 94; RESP 20; TEMP 36.6; O2SAT 97
--- NOTE | 2025-06-02 11:50 | P.DS_ITS ---
DS: Providers Provider Date Seen: 06/02/25 Date of admission: 06/02/25 03:50 Primary care physician: Ida Aquino, OVERHEAD IRRIGATOR, PATIENT REGISTRATION CLERK Admitting Clinician: Radha Fowler MD Consults: 06/02/25 08:25 Consult to Nutrition [CONS] Routine Comment: Reason for consult:: Miscellaneous Comment: recurrent pancreatitis Attending Physician on discharge: Nesha Maki MD Date of Discharge: 06/02/25 DS: Diagnosis Discharge Diagnosis (1) Pancreatitis: Status: Acute Problem details: - was hospitalized for this 05/27-05/29 (third occurrence); presumably ETOH as trigger - s/p cholecystectomy, normal triglycerides, history of drinking 3-5 beers per day - presented to ER on 06/02 with persistent abdominal pain but no nausea or vomiting - abdominal x-ray reassuring, lipase 1063 (was 1072 upon discharge 5 days ago) - upon further questioning, had been eating a normal diet with fried foods, which was triggering abdominal pain - transitioned from IV to oral pain medications on 06/02 with nutritional counseling regarding low-fat diet - recommend ETOH cessation completely upon discharge (2) Gastritis: Status: Acute Problem details: - history of gastric ulcer, Turner's esophagus without dysplasia - continued PPI during stay and upon d/c (3) Hypertension: Status: Acute Problem details: - continued Losartan and Metoprolol during stay and upon d/c (4) Hyperlipidemia: Status: Acute Problem details: - continue statin (5) WPW (Qmmnd-Aqyxavvlb-Dbfsi syndrome): Status: Acute Problem details: - s/p ablation 2012 DS: Summary Hospital Course Hospital Course: Brett Smalls is a 54-year-old male with a history of pancreatitis who presented to our emergency room on 06/02 for persistent abdominal pain after being hospitalized from 05/27-05/29 for his 3rd episode of pancreatitis. Comorbidities with details noted above. In the emergency room, his lipase was mildly elevated, but lower than it had been during previous hospitalization. Repeat CT scan was not performed; abdominal x-ray reassuring. Patient had abdominal pain, but no nausea or vomiting. Upon further questioning 06/02/2025, had been following a regular diet with postprandial abdominal pain. He was seen by Nutrition, who recommended a low-fat diet, and he was able to t ransition from IV to oral pain medications on hospital day 1. He tolerated a low-fat diet without nausea or vomiting and was medically appropriate for discharge home on a low-fat diet on 06/02. Status at Discharge Functional status at discharge: independent ambulation Overall status at discharge: patient is progressing back to baseline Time Spent with Patient Time attestation: Total time spent providing and/or coordinating discharge services: Exam Narrative: Exam Narrative: GEN: Alert and oriented, nontoxic HEENT: EOMIs bilaterally, no scleral icterus CV: RRR, No concerning murmurs R: LCTA bilaterally Ab: Soft, mild distension, tolerates palpation. Bowel sounds throughout Ext: wwp, no concerning edema Skin: No concerning skin lesions or rashes on exposed skin Neuro: Nonfocal Psych: Appropriate Const: Vital Signs, click to edit/add: Vital Signs - 24 hr 06/02/25 01:00 06/02/25 02:46 06/02/25 04:05 Temperature 98.1 F 98.3 F Pulse Rate [Right Pulse Oximeter] 89 93 Respiratory Rate 18 19 Blood Pressure [Le ft Arm] Blood Pressure [Ri ght Upper Arm] 159/91 H 141/87 H Pulse Oximetry 99 97 98 Oxygen Delivery Me thod Room Air Room Air Room Air 06/02/25 04:05 06/02/25 11:36 Temperature 98.2 F 97.9 F Pulse Rate [Right Pulse Oximeter] 91 94 Respiratory Rate 16 20 Blood Pressure [Le ft Arm] 142/93 H 157/100 H Blood Pressure [Ri ght Upper Arm] Pulse Oximetry 98 97 Oxygen Delivery Me thod Room Air Room Air DS: Data Data Completed and Pending Labs on day of discharge: Labs from last 24 hours 06/02/25 06/02/25 06/02/25 06:20 02:59 02:13 WBC 8.10 RBC 3.68 L Hgb 12.4 L Hct 37.0 MCV 101 H MCH 34 MCHC 34 RDW Coeff of Tereso 12.5 Plt Count 348 Neut % (Auto) 57.3 Lymph % (Auto) 29.0 [place] % (Auto) 10.5 Eos % (Auto) 2.8 Baso % (Auto) 0.2 Neut # (Auto) 4.63 Lymph # (Auto) 2.35 [place] # (Auto) 0.90 Eos # (Auto) 0.23 Baso # (Auto) 0.02 Abs Immat Gran (auto) 0.02 Imm/Tot Granulo (auto) 0.2 Sodium 137 Potassium 3.7 Chloride 107 Carbon Dioxide 28 Anion Gap 2 L BUN 5 L Creatinine 0.7 Estimated Creat Clear 124.93 Estimated GFR 110 Glucose 106 Calcium 8.8 Total Bilirubin 0.7 Direct Bilirubin AST 22 ALT 17 Alkaline Phosphatase 66 Lactate Dehydrogenase C-Reactive Protein Total Protein 5.8 L Albumin 3.1 L Lipase Ethyl Alcohol Lab Acknowledgement Test Added Test Added 06/02/25 01:45 WBC 10.46 RBC 4.43 Hgb 14.8 Hct 43.8 MCV 99 MCH 33 MCHC 34 RDW Coeff of Tereso 12.5 Plt Count 323 Neut % (Auto) 59.4 Lymph % (Auto) 24.7 [place] % (Auto) 12.1 H Eos % (Auto) 3.2 Baso % (Auto) 0.3 Neut # (Auto) 6.22 Lymph # (Auto) 2.58 [place] # (Auto) 1.30 H Eos # (Auto) 0.33 Baso # (Auto) 0.03 Abs Immat Gran (auto) 0.03 Imm/Tot Granulo (auto) 0.3 Sodium 137 Potassium 3.6 Chloride 107 Carbon Dioxide 27 Anion Gap 3 L BUN 6 L Creatinine 0.7 Estimated Creat Clear 121.36 Estimated GFR 110 Glucose 114 Calcium 8.3 L Total Bilirubin 0.7 Direct Bilirubin 0.2 AST 19 ALT 17 Alkaline Phosphatase 68 Lactate Dehydrogenase 142 C-Reactive Protein 0.8 Total Protein 5.6 L Albumin 3.2 L Lipase 1063 H Ethyl Alcohol < 0.01 Lab Acknowledgement Discharge Plan Discharge Disposition: Home, Self-Care Date of Admission: 06/02/25 03:50 Attending Provider on Discharge: Nesha Maki Primary Care Provider: Ida Aquino Condition: Improved Anticipated Discharge Date/Time: 06/02/25 09:20 Discharge Medications: New oxycodone 5 mg Tablet 5 mg PO Q4H PRN (Reason: Pain) Qty: 10 0RF Continued aspirin 325 mg capsule 325 mg PO DAILY omeprazole 40 mg capsule,delayed release(DR/EC) 40 mg PO DAILY losartan 100 mg tablet 100 mg PO DAILY metoprolol succinate 50 mg tablet extended release 24 hr 50 mg PO DAILY famotidine 20 mg tablet 20 mg PO QHS Qty: 30 2RF atorvastatin 40 mg tablet 40 mg PO DAILY cilostazol 100 mg tablet 100 mg PO BID Discharge Orders: Discharge Order (Routine); Ordered 06/02/25 Ordered By: Nesha Maki Patient Education: Low Fat Diet (DC) Additional Instructions: LOW FAT DIET for at least one more week to help your pancreas heal. You should feel a little better each day over the next week. We recommend no further alcohol use in the future (this is a big pancreatitis trigger). No return to work until Sunday, 06/08. Make sure you're taking your Aspirin with food so you don't have worsening acid reflux. Pain medication as needed (sent to pharmacy). Discharge Diet: Low Fat/Low Cholesterol Follow Up Appointments: Ida Aquino, MARTHA, PATIENT REGISTRATION CLERK [Primary Care Provider, Family Practice] Referral Note: hospital f/u 5-7 days Forms: Patient Belongings, MyHealth Info Instructions
[2025-06-02 12:55] VITALS: BP 156/101; PULSE 82; RESP 18; TEMP 36.6; O2SAT 99
--- NOTE | 2025-06-02 17:10 | PC.NURSE ---
Discharge - Pt alert, oriented, cooperative. Up independently in room and ambulating in halls. Reports pain of 5-7/10 in abdomen that worsens with eating. Medication given per MAR with pt reporting improved comfort. Denies nausea and vomiting and SOB. Pt states that during previous d/c he did not receive diet education r/t low fat/low cholesterol diet. RN provided handouts and verbal education r/t diet restrictions per MD recommendations along with d/c education. Pt verbalized understanding. IV removed with catheter intact. Pt d/c'd to home with self via wheelchair stating his spouse would pick him up and transport him home at approximately 1605.
== END 2025-06-02 16:05 | disposition home or self-care (01) ==
LOC: ED 03:50 → MEDSURG 09:20
PROVIDERS: Admitting Provider Internal Medicine; Emergency Provider Family Medicine; PCP Nurse Practitioner Family; Visit Provider Internal Medicine
DX: K85.20 Alcohol induced acute pancreatitis without necrosis or infection (principal); F10.90 Alcohol use, unspecified, uncomplicated; K86.2 Cyst of pancreas; I10 Essential (primary) hypertension; E78.5 Hyperlipidemia, unspecified; K29.70 Gastritis, unspecified, without bleeding; I45.6 Pre-excitation syndrome
CPT/HCPCS: 36415; 74019; 80048; 80053; 80076; 82077; 83615; 83690; 85025; 86140; 94761; 96374; 96375; 96376; 99284; 99285; A9270; G0378; J1171; J2405; J2470; J3360; J7030; J7120